=== PATIENT | female | born 1990 | race Caucasian/White ===

== ENCOUNTER 2020-06-08 12:40 | Emergency (ER) | payer OTHER, SELFPAY ==
[2020-06-08 12:41] VITALS: BP 145/98; PULSE 79; RESP 16; TEMP 36.9; O2SAT 98; BMI 48.0
--- NOTE | 2020-06-08 12:59 | US_ITS ---
PROCEDURE: US TRANSVAGINAL Referring Doctor: William Goldberg Patient Age:30Y CLINICAL INDICATION: bleeding in possible early preganancy Obesity but nongravid uterus but COMPARISON: No exams were available for comparison FINDINGS: There is a nongravid uterus. . A couple tiny 3 mm nabothian cysts along cervical canal noted . History obesity noted. Endometrial stripe measures 5 mm Ovaries appear normal. Normal color Doppler survey flow flow to both ovaries. Right ovary. Normal size 3.1 x 1.9 x 2.8 cm Follicular cyst but the largest measures 7 mm Left ovary normal size and unremarkable Left ovary measures 2.2 x 1.8 x 2 cm . No free fluid is seen in the pelvis IMPRESSION: No intrauterine gestation evident . Today's ultrasound suggestNongravid uterus, but requires correlation with beta HCG . Normal endometrial stripe 5 mm. . Ovaries appear normal bilaterally with normal color Doppler flow. Small 7 mm normal-appearing follicular cyst right ovary . No fluid cul-de-sac Dictated by: Alexandru Allen MD 06/08/2020 17:54 Alexandru Allen MD in [place] 06/08/2020 17:54
[2020-06-08 13:06] LABS: Microscopic, Urine URINE MICROSCOPIC (MICROSCOPIC)
[2020-06-08 13:08] LABS: Appearance,Urine SL CLOUDY (Clear); Bilirubin,Urine Negative (Negative); Blood, Urine 3+ (Negative); Color,Urine DK YELLOW (Yellow); Glucose,Urine (UA) Negative (Negative); Ketones,Urine Negative (Negative); Leukocyte Esterase,Urine Negative (Negative); Nitrate,Urine Negative (Negative); PH,Urine 7.5 (5.0-8.5); Protein,Urine Negative (Negative)
[2020-06-08 13:37] LABS: Basophils % 0.5 % (0.1-2.0); Eosinophils # 0.4 K/mm3 (0.0-0.4); Hematocrit 43.7 % (37.0-47.0); Hemoglobin 14.4 g/dL (12.2-16.2); Lymphocytes # 2.3 K/mm3 (0.7-4.5); Lymphocytes % 34.7 % (10-50); Mean Corpuscular Hemoglobin 29.4 pg (27.0-31.2); Mean Corpuscular Volume 89.1 fl (81-99); Mean Platelet Volume 7.2 fl (7.4-10.4); Monocytes # 0.3 K/mm3 (0.1-1.0); Monocytes % 5.2 % (1.7-9.3); Neutrophils # 3.5 K/mm3 (1.8-7.8); Neutrophils % 53.5 % (37.0-80.0); Platelet Count 329 K/mm3 (142-424); Red Cell Distribution Width 13.2 % (11.5-17.5); White Blood Count 6.5 K/mm3 (4.8-10.8)
--- NOTE | 2020-06-08 13:44 | HMH.EDGENADL ---
ED Disposition Clinical Impression: Disposition: Home, Self-Care Condition on Discharge: Good Referrals: PCP,No [Primary Care Provider] - Raheel Anne MD [Staff Physician] - - Critical Care Critical Care Time: No Attestation: On 06/08/20, the high probability of a clinically significant, sudden or life threatening deterioration of the following system(s) required my full and direct attention, intervention and personal management. The time I documented below is in addition to time spent performing reported procedures but includes the following listed in this critical care notation. Medical Decision Making - Medical Records Medical records reviewed: Yes: I reviewed the patient's medical records. - Franco Inquiry Pt receiving controlled substance: No Vital Signs: 06/08/20 12:41 Temperature 98.5 F Temperature Source Oral Pulse Rate [Right] 79 Respiratory Rate 16 Blood Pressure [Right Arm] 145/98 H Blood Pressure Mean [Right Arm] 113 Blood Pressure Source [Right Arm] Automatic Cuff Blood Pressure Position [Right Arm] Sitting 02 Sat by Pulse Oximetry 98 Oxygen Delivery Method Room Air - Lab Data Lab Results 06/08/20 12:57: Urine Color Dk yellow, Urine Appearance Sl cloudy, Urine pH 7.5, Ur Specific [place] 1.020, Urine Protein Negative, Urine Glucose (UA) Negative, Urine Ketones Negative, Urine Blood 3+, Urine Nitrate Negative, Urine Bilirubin Negative, Urine Urobilinogen 1.0, Ur Leukocyte Esterase Negative, Urine RBC 10-20, Urine WBC Occasional, Ur Squamous Epith Cells Occasional, Urine Bacteria Trace 06/08/20 13:20: WBC 6.5, RBC 4.90, Hgb 14.4, Hct 43.7, MCV 89.1, MCH 29.4, MCHC 33.0, RDW 13.2, Plt Count 329, MPV 7.2 L, Neut % (Auto) 53.5, Lymph % (Auto) 34.7, [place] % (Auto) 5.2, Eos % (Auto) 6.0, Baso % (Auto) 0.5, Neut # (Auto) 3.5, Lymph # (Auto) 2.3, [place] # (Auto) 0.3, Eos # (Auto) 0.4, Baso # (Auto) 0.0 06/08/20 13:20: Sodium 138, Potassium 4.2, Chloride 103, Carbon Dioxide 30, Anion Gap 9.2, BUN 13, Creatinine 0.60, Estimated Creat Clear 119, Estimated GFR 118, Est GFR ( Amer) 143, Glucose 104 H, Calcium 9.0, Total Bilirubin 0.5, AST 71 H, ALT 94 H, Alkaline Phosphatase 80, Total Protein 8.0, Albumin 4.0, Globulin 4.0 H, Albumin/Globulin Ratio 1.0 L 06/08/20 13:20: Blood Type O Positive, Antibody Screen Negative 06/08/20 13:20: HCG, Quant 4 Result diagrams: 06/08/20 13:20 06/08/20 13:20 Orders (Tests/Meds): ORDERS Category Date Time Status ABO/RH Type Stat BBK 06/08/20 14:53 Ordered US transvaginal Stat Exams 06/08/20 12:59 Taken PT/PTT Stat Lab 06/08/20 13:20 Received Medical Decision Narrative: 30 y/o female presenting w vaginal bleeding and abd cramping. HCG is 4 today and transvaginal US is neg for uterine w thin endometrial stripe c/w . cbc/cmp are non actionable. no infection on UA. rh pos- rhogam not indicated. benign abd exam. will f/u w OB General Adult HPI - General Chief complaint: OB/Uterine Contractions Stated complaint: & spotting Time Seen by Provider: 06/08/20 13:00 Mode of Arrival: Ambulatory Limitations: No Limitations Description of Symptoms (Recalled from ER Triage Doc. by RN): PT advises she had 2 positive tests last week and then last night she started spotting and then today she had bright red blood - History of Present Illness HPI narrative: This is a 30-year-old female A0 we discovered by home test presenting with 2-day history of intermittent vaginal spotting. Patient also relates mild lower abdominal cramps today and one episode of dysuria yesterday. This has never happened before. No fever, chills, nausea, vomiting, cough, shortness of breath, diarrhea, constipation. - Related Data Home Medications Medication Instructions Recorded Confirmed No Known Home Medications 06/08/20 06/08/20 Allergies Allergy/AdvReac Type Severity Reaction Status Date /
[2020-06-08 14:11] LABS: Bacteria,Urine Trace /lpf; Squamous Epithelial Cell,Urine Occasional #/hpf (0-5); WBC,Urine Occasional #/hpf (0-3)
[2020-06-08 14:26] LABS: Alanine Aminotransferase 94 U/L (12-78); Alkaline Phosphatase 80 U/L (38-126); Anion Gap 9.2 mEq/L (5-15); Aspartate Amino Transferase 71 U/L (14-36); Bilirubin,Total 0.5 mg/dl (0.2-1.3); Blood Urea Nitrogen 13 mg/dl (7-17); Carbon Dioxide 30 mmol/L (22.0-30.0); Chloride 103 mmol/L (98-107); Creatinine Clearance Estimated 119 mL/min (50-200); Estimated Glomerular Filt Rate 118 ml/min (>60); GFR (African American) 143 ML/MIN (>60); Glucose 104 mg/dl (74-100); Potassium 4.2 mmoL/L (3.5-5.1); Sodium 138 mmol/L (136-145)
[2020-06-08 14:43] LABS: HCG,Quantitative 4 mIU/ml (0-5.42)
[2020-06-08 15:30] LABS: Activated Partial Thrombo Time 27.9 seconds (23.6-34.0); INR 0.98 (0.9-1.1); Prothrombin Time 10.9 seconds (9.4-11.8)
[2020-06-08 15:33] VITALS: BP 130/74; PULSE 78; RESP 16; TEMP 36.6; O2SAT 98
== END 2020-06-08 15:34 | disposition home or self-care (01) ==
PROVIDERS: Emergency Provider Physician Assistant
DX: O03.9 Complete or unspecified spontaneous abortion without complication (principal)
CPT/HCPCS: 76830; 80053; 81001; 84702; 85025; 85610; 85730; 86850; 99283

== ENCOUNTER → 2020-10-01 16:04 | Outpatient (CLI) | payer OTHER, SELFPAY ==
[2020-10-01 16:41] LABS: Basophils # 0.1 K/mm3 (0-0.2); Basophils % 0.5 % (0.1-2.0); Eosinophils # 0.3 K/mm3 (0.0-0.4); Eosinophils % 2.6 % (0.1-12.0); Hematocrit 43.2 % (37.0-47.0); Hemoglobin 14.4 g/dL (12.2-16.2); Lymphocytes # 3.1 K/mm3 (0.7-4.5); Lymphocytes % 31.7 % (10-50); Mean Corpuscular HGB Conc 33.3 g/dL (31.8-35.4); Mean Corpuscular Hemoglobin 29.2 pg (27.0-31.2); Mean Corpuscular Volume 87.7 fl (81-99); Mean Platelet Volume 7.5 fl (7.4-10.4); Monocytes # 0.6 K/mm3 (0.1-1.0); Monocytes % 5.9 % (1.7-9.3); Neutrophils # 5.8 K/mm3 (1.8-7.8); Neutrophils % 59.3 % (37.0-80.0); Platelet Count 309 K/mm3 (142-424); Red Blood Count 4.93 M/mm3 (4.20-5.40); Red Cell Distribution Width 13.1 % (11.5-17.5); White Blood Count 9.9 K/mm3 (4.8-10.8)
[2020-10-01 16:48] LABS: Hemoglobin A1C 5.3 % (4.0-6.0)
[2020-10-01 17:18] LABS: Chloride 103 mmol/L (98-107); Potassium 4.4 mmoL/L (3.5-5.1); Sodium 136 mmol/L (136-145)
[2020-10-01 17:20] LABS: Alanine Aminotransferase 134 U/L (12-78); Aspartate Amino Transferase 79 U/L (14-36); Blood Urea Nitrogen 10 mg/dl (7-17); Estimated Glomerular Filt Rate 118 ml/min (>60); GFR (African American) 143 ML/MIN (>60); HCG Qualitative, Serum Positive (Negative)
[2020-10-01 17:21] LABS: Albumin/Globulin Ratio 1.2 (1.1-1.8); Alkaline Phosphatase 73 U/L (38-126); Anion Gap 9.4 mEq/L (5-15); Bilirubin,Total 0.4 mg/dl (0.2-1.3); Calcium 9.4 mg/dl (8.4-10.2); Carbon Dioxide 28 mmol/L (22.0-30.0); Chol/HDL Ratio 3.2 (1-3.5); Cholesterol 162 mg/dl (140-200); Globulin 3.3 g/dL (1.3-3.2); Glucose 85 mg/dl (74-100); HDL Cholesterol 50 mg/dl (40-60); Total Protein,Serum 7.3 g/dl (6.3-8.2); Triglycerides 122 mg/dl (30-150); VLDL Cholesterol 24 mg/dL (0-40)
[2020-10-01 17:52] LABS: Thyroid Stimulating Hormone 2.87 uIU/mL (0.465-4.68)
== END ==
PROVIDERS: Visit Provider Family Medicine
DX: E11.9 Type 2 diabetes mellitus without complications (principal); E66.9 Obesity, unspecified; R63.5 Abnormal weight gain; Z83.3 Family history of diabetes mellitus; Z83.49 Family history of other endocrine, nutritional and metabolic diseases; Z87.59 Personal history of other complications of pregnancy, childbirth and the puerperium; F32.9 Major depressive disorder, single episode, unspecified
CPT/HCPCS: 36415; 80053; 80061; 83036; 84443; 84703; 85025

== ENCOUNTER 2022-01-10 10:56 | Emergency (ER) | payer OTHER, SELFPAY ==
[2022-01-10 11:20] VITALS: BP 149/98; PULSE 70; RESP 19; TEMP 36.8; O2SAT 98; BMI 54.5
--- NOTE | 2022-01-10 11:40 | HMH.EDUTC ---
[place] Disposition Clinical Impression: Upper respiratory infection, viral, Exposure to COVID-19 virus Disposition: Home, Self-Care Condition on Discharge: Good Instructions: DI for Viral Upper Respiratory Infection -- Adult Additional Instructions: covid swab was sent to lab, call tomorrow for results. self isolate until test results are known to be negative No sign of a bacterial infection. Likely viral. Viruses can take 7-14 days to run their course. Nasal saline and bulb syringe or nose [place] to remove nasal drainage to help with nasal congestion. Hard to eat, drink, sleep with nasal congestion so important to keep this cleaned out. Monitor temp. Tylenol or Motrin as needed for pain or fever Encourage fluids, water, Gatorade, Powerade, Pedialyte if /toddler/child Warm salt water gargles Warm fluids Sore throat lozenges Sleep elevated Humidifier/vaporizer Follow-up immediately for new or worsening symptoms or no noticeable improvement over the next 48-72 hours Referrals: Lit De Leon MD [Primary Care Provider] - Forms: Work/School Release Time of Disposition: 11:42 Medical Decision Making - Franco Inquiry Pt receiving controlled substance: No Vital Signs: 01/10/22 11:20 Temperature 98.2 F Temperature Source Oral Pulse Rate [Right Brachial] 70 Respiratory Rate 19 Blood Pressure [Right Arm] 149/98 H Blood Pressure Mean [Right Arm] 115 Blood Pressure Source [Right Arm] Automatic Cuff Blood Pressure Position [Right Arm] Sitting 02 Sat by Pulse Oximetry 98 Oxygen Delivery Method Room Air Orders (Tests/Meds): ORDERS Category Date Time Status Covid-19 Nasal PCR ([facility]) Routine Lab 01/10/22 11:16 Received [place] HPI - General Chief complaint: Urgent Treatment Center Stated complaint: Migrane, cough, sore throat, SOA, bodyache Time Seen by Provider: 01/10/22 11:40 Mode of Arrival: Ambulatory Source of Information: Patient Limitations: No Limitations Description of Symptoms (Recalled from Triage Doc. by RN): PATIENT C/O COUGH, RUNNY NOSE, CONGESTION, AND BODY ACHES THAT STARTED THIS MORNING HEENT Symptoms (Recalled from RN notes): Yes Resp Symptoms (Recalled from RN notes): No Skin Symptoms (Recalled from RN notes): No MS Symptoms (Recalled from RN notes): No Functional Status (Recalled from RN notes): WNL - History of Present Illness Provider Complaint: 31 yr old female presents for cough,chills,body aches and tillman that started this am. has been exposed to covid - Related Data Home Medications Medication Instructions Recorded Confirmed buprenorphine HCl 8 mg sublingual 8 mg SUBLINGUAL DAILY 09/23/20 09/23/20 tablet hydroxyzine pamoate 25 mg/5 mL mg PO 09/23/20 oral suspension venlafaxine 75 mg tablet,extended 75 mg PO DAILY 09/23/20 09/23/20 release 24 hr Allergies Allergy/AdvReac Type Severity Reaction Status Date / Time No Known Allergies Allergy Verified 09/23/20 10:51 - Worker's Comp Is this a Worker's Comp case?: No [facility] History - Hepatitis A Screen Attestation statement:: This patient has been screened for Hepatitis A risk factors. I have reviewed the patient's past medical history: Yes - Social History Smoking Status: Current every day smoker Alcohol Intake: never Substance Use Type: heroin, methamphetamine, marijuana, crack/cocaine Occupational Status: employed ROS Obtained: Yes Systems reviewed as appropriate & no additional complaints - Constitutional Constitutional: Reports system reviewed and no additional complaints, except as docu, Reports fever(s), Denies poor appetite - Eyes Eyes: Reports system reviewed and no additional complaints, except as docu, Denies blurry vision - ENT Ears, Nose, Mouth, and Throat: Reports system reviewed and no additional complaints, except as docu, Reports nasal congestion, Reports nasal discharge, Reports sore throat - Cardiovascular Cardiovascular: Reports system reviewed and no additional compla
[2022-01-10 11:44] VITALS: BP 149/98; PULSE 70; RESP 19; TEMP 36.8; O2SAT 98
== END 2022-01-10 11:45 | disposition home or self-care (01) ==
PROVIDERS: Emergency Provider Nurse Practitioner Family; PCP Family Medicine
DX: J06.9 Acute upper respiratory infection, unspecified (principal); R51.9 Headache, unspecified; Z20.822 Contact with and (suspected) exposure to COVID-19; R06.02 Shortness of breath; R05.9 Cough, unspecified
CPT/HCPCS: 99212; C9803; G0463; U0003; U0005

== ENCOUNTER → 2022-03-10 16:20 | Outpatient (CLI) | payer BC, OTHER, SELFPAY ==
[2022-03-10 20:41] LABS: Basophils # 0.1 K/mm3 (0-0.2); Basophils % 0.9 % (0.1-2.0); Eosinophils # 0.2 K/mm3 (0.0-0.4); Eosinophils % 2.2 % (0.1-12.0); Hemoglobin 14.7 g/dL (12.2-16.2); Lymphocytes # 2.4 K/mm3 (0.7-4.5); Lymphocytes % 26.7 % (10-50); Mean Corpuscular HGB Conc 31.9 g/dL (31.8-35.4); Mean Corpuscular Hemoglobin 29.9 pg (27.0-31.2); Mean Corpuscular Volume 93.5 fl (81-99); Monocytes # 0.5 K/mm3 (0.1-1.0); Monocytes % 5.4 % (1.7-9.3); Neutrophils # 5.9 K/mm3 (1.8-7.8); Neutrophils % 64.7 % (37.0-80.0); Platelet Count 341 K/mm3 (142-424); Red Blood Count 4.91 M/mm3 (4.20-5.40); Red Cell Distribution Width 13.2 % (11.5-17.5); White Blood Count 9.1 K/mm3 (4.8-10.8)
[2022-03-10 20:44] LABS: Alanine Aminotransferase 86 U/L (12-78); Albumin Level 3.9 g/dl (3.5-5.0); Albumin/Globulin Ratio 1.1 (1.1-1.8); Alkaline Phosphatase 112 U/L (38-126); Anion Gap 15.6 mEq/L (5-15); Aspartate Amino Transferase 65 U/L (14-36); Bilirubin,Total 0.4 mg/dl (0.2-1.3); Blood Urea Nitrogen 15 mg/dl (7-17); Calcium 8.9 mg/dl (8.4-10.2); Carbon Dioxide 29 mmol/L (22.0-30.0); Chloride 100 mmol/L (98-107); Estimated Glomerular Filt Rate 98 ml/min (>60); GFR (African American) 119 ML/MIN (>60); Globulin 3.5 g/dL (1.3-3.2); Glucose 88 mg/dl (74-100); Potassium 4.6 mmoL/L (3.5-5.1); Sodium 140 mmol/L (136-145); Total Protein,Serum 7.4 g/dl (6.3-8.2)
[2022-03-12 10:32] LABS: HIV Screen 4th Generation wRfx Non Reactive (Non Reactive); Hep A Ab, Total Positive (Negative); Hep B Core Ab, Total Positive (Negative); Hep B Surface Ab, Qual Reactive (.); Hepatitis B Surface Antigen Negative (Negative); Hepatitis C Antibody >11.0 s/co ratio (0.0-0.9)
[2022-03-13 21:30] LABS: HCV Genotype Charge YES; Hepatitis C Genotype 2b (.)
[2022-03-14 00:17] LABS: ALT (SGPT) P5P 83 IU/L (0-40); Alpha 2-Macroglobulins, Qn 199 mg/dL (110-276); Apolipoprotein A-1 161 mg/dL (116-209); Bilirubin, Total 0.2 mg/dL (0.0-1.2); Fibrosis Score 0.04 (0.00-0.21); GGT 24 IU/L (0-60); Haptoglobin 130 mg/dL (33-278); Necroinflammat Activity Grade A1-A2 (.); Necroinflammat Activity Score 0.39 (0.00-0.17)
== END ==
PROVIDERS: PCP Nurse Practitioner Family; Visit Provider Nurse Practitioner Family
DX: R53.83 Other fatigue (principal); B34.8 Other viral infections of unspecified site; Z11.4 Encounter for screening for human immunodeficiency virus [HIV]; Z11.59 Encounter for screening for other viral diseases
CPT/HCPCS: 80053; 81596; 85025; 86703; 86704; 86706; 86708; 87340; 87380; 87522; 87902; G0432

== ENCOUNTER → 2023-03-18 16:07 | Outpatient (CLI) | payer OTHER, SELFPAY | PROVIDERS: PCP Family Medicine; Visit Provider Nurse Practitioner Family | DX: B18.2 Chronic viral hepatitis C (principal) | CPT/HCPCS: 36415 ==

== ENCOUNTER → 2023-03-25 15:54 | Outpatient (CLI) | payer OTHER, SELFPAY ==
[2023-03-25 16:23] LABS: Basophils # 0.1 K/mm3 (0-0.2); Basophils % 0.6 % (0.1-2.0); Eosinophils # 0.4 K/mm3 (0.0-0.4); Eosinophils % 3.4 % (0.1-12.0); Hemoglobin 14.7 g/dL (12.2-16.2); Lymphocytes # 3.6 K/mm3 (0.7-4.5); Lymphocytes % 34.1 % (10-50); Mean Corpuscular HGB Conc 34.9 g/dL (31.8-35.4); Mean Corpuscular Hemoglobin 31.7 pg (27.0-31.2); Mean Corpuscular Volume 90.9 fl (81-99); Mean Platelet Volume 8.3 fl (7.4-10.4); Monocytes # 0.5 K/mm3 (0.1-1.0); Monocytes % 4.4 % (1.7-9.3); Neutrophils % 57.5 % (37.0-80.0); Platelet Count 226 K/mm3 (142-424); Red Blood Count 4.63 M/mm3 (4.20-5.40); Red Cell Distribution Width 12.2 % (11.5-17.5); White Blood Count 10.5 K/mm3 (4.8-10.8)
[2023-03-25 16:32] LABS: INR 0.99 (0.9-1.1); Prothrombin Time 10.7 seconds (10.1-12.5)
[2023-03-25 17:04] LABS: Alanine Aminotransferase 80 U/L (12-78); Albumin Level 3.8 g/dl (3.5-5.0); Albumin/Globulin Ratio 1.2 (1.1-1.8); Alkaline Phosphatase 80 U/L (38-126); Anion Gap 12.4 mEq/L (5-15); Aspartate Amino Transferase 63 U/L (14-36); Bilirubin,Total 0.2 mg/dl (0.2-1.3); Blood Urea Nitrogen 13 mg/dl (7-17); Calcium 8.7 mg/dl (8.4-10.2); Carbon Dioxide 32 mmol/L (22.0-30.0); Chloride 101 mmol/L (98-107); Estimated Glomerular Filt Rate 97 ml/min (>60); GFR (African American) 117 ML/MIN (>60); Globulin 3.3 g/dL (1.3-3.2); Glucose 75 mg/dl (74-100); Potassium 4.4 mmoL/L (3.5-5.1); Sodium 141 mmol/L (136-145); Total Protein,Serum 7.1 g/dl (6.3-8.2)
[2023-03-27 08:22] LABS: HIV Screen 4th Generation wRfx Non Reactive (Non Reactive)
[2023-03-27 09:47] LABS: Hep A Ab, Total Positive (Negative); Hep B Core Ab, Total Positive (Negative); Hep Be Ag Positive (Negative)
[2023-03-28 21:32] LABS: HCV Genotype Charge YES; Hepatitis C Genotype 2b (.)
[2023-04-01 10:22] LABS: Fibrosis Score 0.04; Fibrosis Stage F0-NO FIBROSIS; NASH Grade N0-NO NASH; Steatosis Grade S0-NO STEATOSIS; Steatosis Score 0.33
[2023-04-01 10:23] LABS: Alpha 2-Macroglobulins, Qn 197; Apolipoprotein A-1 130; Haptoglobin 108
[2023-04-01 10:24] LABS: ALT (SGPT) P5P 69; AST (SGOT) P5P 48; Bilirubin, Total 0.1; GGT 20
[2023-04-01 10:25] LABS: Cholesterol, Total 147; Glucose 75; Triglycerides 122
== END ==
PROVIDERS: PCP Family Medicine; Visit Provider Nurse Practitioner Family
DX: B18.2 Chronic viral hepatitis C (principal)
CPT/HCPCS: 36415; 80053; 85025; 85610; 86703; 86704; 86708; 87350; 87522; 87902; G0432

== ENCOUNTER 2024-01-06 15:55 | Outpatient (CLI) | payer OTHER, SELFPAY ==
[2024-01-06 18:08] LABS: Coronavirus 19, PCR Not Detected (NotDetected); Influenza A, PCR Not Detected (NotDetected); Influenza B, PCR Not Detected (NotDetected)
== END 2024-01-06 23:59 | disposition home or self-care (01) ==
LOC: LAB.DROPOF 01-08 19:26
PROVIDERS: PCP Nurse Practitioner; Visit Provider Nurse Practitioner
DX: J06.9 Acute upper respiratory infection, unspecified (principal); Z72.0 Tobacco use
CPT/HCPCS: 87636

== ENCOUNTER 2025-03-27 10:40 | Outpatient (CLI) | payer OTHER, SELFPAY ==
--- OUTSIDE RECORDS SUMMARY | 2025-03-22 08:00 | XMS_ITS | Encounter Summary ---
Author Organization [place] [address] Care Team Providers Care Sheet Sorter Name Role Phone No Pcp, Per Patient Primary Care Provider Nicolás velasquez Reason for Referral * Ultrasound (Routine) - Pending Review Specialty Diagnoses / Procedures Referred By Diana t Referred To Contact Diagnoses Early stage of Amenorrhea Procedures PN US OB < 14 WEEKS SINGLE OR FIRST GESTATION Dashawn Mcgrath MD [address] [place] [address] [place] [id number] Phone: tel: fax: Referral ID Status Reason Start Date Expiration Date V isits Requested Visits Authorized [id number] Pending Review 03/22/2025 03/22/2026 1 1 Reason for Visit * Reason Comments Gynecologic Exam pt states she she tillman sn't had a period end of December was very light has a history of ectopic pregnancies, states she just got out of rehab Encounter Details Date Type Department Care Team (Late Contact Info) Description 03/22/2025 9:00 AM EDT Office Visit [facility] [address] [place] [phone] Dashawn Mcgrath MD [address] [place] [address] [address] [place] [address] [id number] Early stage of (Primary Dx); History of ectopic ; Amenorrhea Social History Tobacco Use Types Packs/Day Years Used Date Smoking Tobacco: Never Smokeless Tobacco: Never Tobacco Cessation:Counseling Given: No Alcohol Use Standard Drinks/Week Comments No 0 (1 standard drink = 0.6 oz pur e alcohol) Sexually Active Control Partners Comments Yes Male Comments No Sex and Gender Information Value Date Recorded Sex Assigned at Not on file Legal Sex Female 8:55 PM EDT Gender Identity Not on file Sexual Orientation Not on file documented as of this encounter Last Filed Vital Signs Vital Sign Reading Time Taken Comments Blood Pressure 118/74 03/22/2025 9:31 AM EDT Pulse - - Temperature - - Respiratory Rate - - Oxygen Saturation - - Inhaled Oxygen Concentration - - Weight 153.1 kg (337 lb 9.6 oz) 03/22/2025 9:31 AM EDT Height 167.6 cm (5' 6 ) 03/22/2025 9:31 AM EDT Body Mass Index 54.49 03/22/2025 9:31 AM EDT documented in this encounter Progress Notes * Kennedy Menendez MA - 03/22/2025 9:00 AM EDT Results for orders placed or performed in visit on 03/22/25 SEP URINALYSIS POC Result Value Ref Range UA Color POC Yellow Color UA Appear POC Clear Clear UA Gluc POC Negative Negative mg/dL UA Bili POC Negative Negative UA Ketones POC Negative Negative mg/dL UA SG POC 1.020 1.001 - 1.035 no units UA Blood POC Negative Negative UA pH POC 5.5 5.0 - 8.0 pH UA Protein POC Negative Negative mg/dL UA Urobilinogen POC 0.2 0.2, 1.0 UA Nitrite POC Negative Negative UA Leuk Est POC Negative Negative POCT URINE TELCOR Result Value Ref Range Preg Test, Ur Positive * Dashawn Mcgrath MD - 03/22/2025 9:00 AM EDT [facility] [employer] [employer] Visit Chief Complaint Patient presents with ??? Gynecologic Exam pt states she she hasn't had a period end of December was very light has a history of ectopic pregnancies, states she just got out of rehab Pt is a 35 y.o. No obstetric history on file. 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 History of Present Illness The patient is a 35-year-old female who presents for a problem visit. She is early and hasa history of ectopic pregnancies. She has a history of 3 early miscarriages, characterized by initial positive tests that subsequently turned negative. Additionally, she experienced an ectopic , which was managed with methotrexate injections. Following this, she successfully carried a to term, resultingin the of her now 3-year-old child. During her previous , she experienced left-sided pain and constant pressure, symptoms that are notably absent in her current . She reports no spotting but does experience nausea and persistent fatigue. Her obstetric history includes 2 sections. She is uncertain about her blood type, recalling it as either O positive or negative. Obstetrical History discussed: - History of ectopic pregnancies - History of 3 early miscarriages - 2 sections PAST SURGICAL HISTORY: - 2 sections Contraception if applicable: Past Medical History[1] OB History No obstetric history on file. Patient Active Problem List Diagnosis Date Noted ??? Severe episode of recurrent major depressive disorder, without psychotic features ([facility]) 09/24/2016 ??? Anxiety and depression 01/28/2016 on prozac ??? Obesity, morbid, BMI 50 or higher ([facility]) 01/28/2016 Surgical History[1] Current Outpatient Medications Medication Instructions ??? busPIRone (BUSPAR) 10 mg, Oral, 2 TIMES DAILY ??? busPIRone (BUSPAR) 15 mg, 3 TIMES DAILY ??? cyanocobalamin 1,000 mcg, DAILY ??? DULoxetine (CYMBALTA) 30 mg Oral Capsule, Delayed Release(E.C.) TAKE 1 CAPSULE ONCE DAILY FOR 7DAYS, THEN INCREASE TO 2 CAPSULES ONCE DAILY ??? DULoxetine (CYMBALTA) 60 mg, DAILY ??? ergocalciferol (VITAMIN D) 50,000 Units, Oral, WEEKLY ??? fUROsemide (LASIX) 20 mg, Oral, DAILY ??? hydroCHLOROthiazide 25 mg, DAILY ??? hydrOXYzine (ATARAX) 25 mg, ONCE ??? lisinopriL (PRINIVIL;ZESTRIL) 20 mg, DAILY Physical Exam: BP 118/74 (BP Location: Left arm, Patient Position: Sitting) Ht 5' 6 (1.676 m) Wt (!) 337 lb 9.6 oz (153.1 kg) No BMI 54.49 kg/m?? Body mass index is 54.49 kg/m??. 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 Early : - The patient has a history of ectopic pregnancies and miscarriages, with concerns about recurrence. - A serum hormone level test will be conducted to determine gestational age. An ultrasound will be performed once the hormone level reaches 2000. If the hormone level is below 2000, it will be rechecked. If the hormone level is above 2000, an ultrasound will be scheduled. - The patient will be informed of the results via Breathometer. 2. Medication management: - The patient is currently on lisinopril for blood pressure and hydroxyzine for mood stabilization but is out of all medications will f/u with primary care re: meds - The patient is advised to continue these medications as previously prescribed. She will need to contact her family doctor for any further prescriptions as she is no longer seeing the doctor who initially prescribed these medications. Follow-up: The patient will be informed of the serum hormone level results via Breathometer. Diagnoses and all orders for this visit: Early stage of - SEP URINALYSIS POC - PN US OB < 14 WEEKS SINGLE OR FIRST GESTATION; Future - TYPE AND SCREEN; Future - ABORH; Future - ANTIBODY SCREEN IGG; Future - HUMAN CHORIONIC GONADOTROPIN QUANTITATIVE; Future History of ectopic Amenorrhea - POCT URINE TELCOR - PN US OB < 14 WEEKS SINGLE OR FIRST GESTATION; Future - TYPE AND SCREEN; Future - ABORH; Future - ANTIBODY SCREEN IGG; Future - HUMAN CHORIONIC GONADOTROPIN QUANTITATIVE; Future Dashawn Mcgrath MD 03/22/2025 10:09 AM The provider educated the patient (or legal food products sales representative) on the use of the ambient listening artificial intelligence tool, [employer]. They were informed that this AI tool processes the conversation to generate a clinical note with the expected benefit of improved accuracy while achieving an improved encounter experience for the patient and provider.?The provider explained that the medical information captured by the AI tool including, but not limited to, diagnoses and treatment plan would be protected in accordance with applicable privacy laws and that all diagnoses and treatment decisions would be made by the provider. The provider explained that the note generated will be reviewed bythe provider for accuracy to minimize potential errors.? The patient was given an opportunity to ask questions and opt out of proceeding with the use of the AI tool. After being informed of such information, the patient (or legal food products sales representative), and each individual in attendance with the patient, verbally consented to the use of the AI tool. [1] Past Medical History: Diagnosis Date ??? Depression [1] Past Surgical History: Procedure Laterality Date ??? SECTION documented in this encounter Plan of Treatment Upcoming Encounters Date Type Department Care Team (Late st Contact Info) Description 04/05/2025 3:30 PM EST Clinical Support [address] [phone] 04/05/2025 4:00 PM EST INITIAL VISIT [address] [phone] Scheduled Orders Name Type Priority Associated Diagnoses Orde r Schedule PN US OB < 14 WEEKS SINGLE OR FIRST GESTATION Imaging Routine Early stage of Amenorrhea 1 Occurrences starting 03/22/2025 until 03/22/2026 ABORH Blood Bank Routine Early stage of Amenorrhea 1 Occurrences starting 03/22/2025 until 03/22/2026 ANTIBODY SCREEN IGG Blood Bank Routine Early stage of Amenorrhea 1 Occurrences starting 03/22/2025 until 03/22/2026 documented as of this encounter Goals Goal Patient Goal Type Associated Problems Recent Progress Patient-Stated? Author Maintain a healthy diet, exercise regularly and maintain an ideal body weight General No Catie Soler RMA documented as of this encounter Procedures Procedure Name Priority Date/Time Associated Diagnosis Comments POCT URINE TELCOR Routine 03/22/2025 9:38 AM EDT Amenorrhea SEP URINALYSIS POC Routine 03/22/2025 9: 23 AM EDT Early stage of documented in this encounter Results * (ABNORMAL) HUMAN CHORIONIC GONADOTROPIN QUANTITATIVE (03/22/2025 10:16 AM EDT) [facility] Hcg Quant 76,184(H) <5 mIU/mL 03/22/2025 2:25 PM EDT PREFERRED [facility] Blood VENOUS BLOOD / Unknown Venipuncture / Unknown 03/22/2025 10:16 AM EDT 03/22/2025 10:16 AM EDT Narrative [facility]REFERRED [facility] - 03/22/2025 2:25 PM EDT Female (non-): 0-4.9 mIU/mL Female (postmenopausal): 0-8.1 mIU/mL Indeterminate values for (e.g., 5-25 mIU/mL) may be confirmed with a repeat test in 48-72 hours. Values in should double every 2-3 days for the first six weeks. Ingestion of espinoza doses of biotin (>5 mg/day) taken within 8 hours of drawing blood sample can interfere with this immunoassay test. Dashawn Mcgrath MD CHEMISTRY ORDERABLES Final Res ult [facility] [address], [place] [address] * POCT URINE TELCOR (03/22/2025 9:38 AM EDT) [facility] Preg Test, Ur Positive 03/22/2025 9:41 AM EDT [facility] Urine STRUCTURE OF URINARY TRACT PROPER / Unknown 03/22/2025 9:38 AM EDT 03/22/2025 9:41 AM EDT Dashawn Mcgrath MD POINT OF CARE TEST ORDERABLES Final Result [facility] [address] [place] [address], [facility] [address] [place] [address] [phone] * SEP URINALYSIS POC (03/22/2025 9:23 AM EDT) UA Color POC Yellow Color 03/22/2025 9:26 AM EDT [facility] 302 UA Appear POC Clear Clear 03/22/2025 9:26 AM EDT [facility] 302 UA Gluc POC Negative Negative mg/dL 03/22/2025 9:26 AM EDT [facility] 302 UA Bili POC Negative Negative 03/22/2025 9:26 AM EDT [facility] 302 UA Ketones POC Negative Negative mg/dL 03/22/2025 9:26 AM EDT [facility] 302 UA SG POC 1.020 1.001 - 1.035 no units 03/22/2025 9:26 AM EDT [facility] 302 UA Blood POC Negative Negative 03/22/2025 9:26 AM EDT [facility] 302 UA pH POC 5.5 5.0 - 8.0 pH 03/22/2025 9:26 AM EDT [facility] 302 UA Protein POC Negative Negative mg/dL 03/22/2025 9:26 AM EDT [facility] 302 UA Urobilinogen POC 0.2 0.2, 1.0 03/22/2025 9:26 AM EDT [facility] 302 UA Nitrite POC Negative Negative 03/22/2025 9:26 AM EDT [facility] 302 UA Leuk Est POC Negative Negative 9:26 AM EDT [facility] 302 Urine STRUCTURE OF URINARY TRACT PROPER / Unknown 03/22/2025 9:23 AM EDT 03/22/2025 9:26 AM EDT us Dashawn Mcgrath MD POINT OF CARE TEST ORDERABLES Final Result [facility] [address] [place] [address], [address] [phone] [phone] documented in this encounter Visit Diagnoses Diagnosis Early stage of - Primary History of ectopic Personal history of other genital system and obstetric disorders Amenorrhea Absence of menstruation documented in this encounter Historical Medications * This list may reflect changes made after this encounter. hydroCHLOROthiazid e 25 mg Oral Tablet Take 25 mg by mouth daily. 02/21/2025 busPIRone (BUSPAR) 15 mg Oral Tablet Take 15 mg by mouth 3 times daily. 01/25/2025 DULoxetine (CYMBALTA) 60 mg Oral Capsule, Delayed Release(E.C.) Take 60 mg by mouth daily. 02/08/2025 hydrOXYzine (ATARAX) 25 mg Oral Tablet Take 25 mg by mouth once. 02/12/2025 lisinopriL (PRINIVIL;ZESTRIL) 20 mg Oral Tablet tablet Take 20 mg by mouth daily. 02/12/2025 added in this encounter Care Teams Sheet Sorter Relationship Specialty Start Date End Date No Pcp, Per Patient PCP - General 12/05/23 documented as of this encounter
--- OUTSIDE RECORDS SUMMARY | 2025-03-22 09:04 | XMS_ITS | Encounter Summary ---
Author Organization [place] [address] Care Team Providers Care Inventory Control Assistant Name Role Phone No Pcp, Per Patient Primary Care Provider Nicolás velasquez Encounter Details Date Type Department Care Team (Latest Contact Info) Description 03/22/2025 10:04 AM EDT - 03/22/2025 11:59 PM EDT Hospital Encounter [facility] [address] [place] [address] Early stage of ; Amenorrhea Discharge Disposition: Home or Self Care Social History Tobacco Use Types Packs/Day Years Used Date Smoking Tobacco: Never Smokeless Tobacco: Never Alcohol Use Standard Drinks/Week Comments No 0 (1 standard drink = 0.6 oz pur e alcohol) Sexually Active Control Partners Comments Yes Male Comments No Sex and Gender Information Value Date Recorded Sex Assigned at Not on file Legal Sex Female 8:55 PM EDT Gender Identity Not on file Sexual Orientation Not on file documented as of this encounter Medications at Time of Discharge busPIRone (BUSPAR) 10 mg Oral TabletIndications :ADELITA (generalized anxiety disorder) TAKE 1 TAB BY MOUTH 2 TIMES DAILY. 60 Tab 03/18/2017 busPIRone (BUSPAR) 15 mg Oral Tablet Take 15 mg by mouth 3 times daily. 01/25/2025 cyanocobalamin 1,000 mcg Oral Tablet Take 1,000 mcg by mouth daily. DULoxetine (CYMBALTA) 30 mg Oral Capsule, Delayed Release(E.C.)Kalyani cations:ADELITA (generalized anxiety disorder) TAKE 1 CAPSULE ONCE DAILY FOR 7 DAYS, THEN INCREASE TO 2 CAPSULES ONCE DAILY 60 Cap 03/18/2017 DULoxetine (CYMBALTA) 60 mg Oral Capsule, Delayed Release(E.C.) Take 60 mg by mouth daily. 02/08/2025 ergocalciferol (VITAMIN D) 50,000 unit Oral CapsuleIndication s:Vitamin D deficiency Take 1 Cap by mouth once a week. 4 Cap 2 09/24/2016 fUROsemide (LASIX) 20 mg Oral TabletIndications :Peripheral edema TAKE 1 TAB BY MOUTH DAILY. 30 Tab 2017 hydroCHLOROthiazi de 25 mg Oral Tablet Take 25 mg by mouth daily. 02/21/2025 hydrOXYzine (ATARAX) 25 mg Oral Tablet Take 25 mg by mouth once. 02/12/2025 lisinopriL (PRINIVIL;ZESTRIL ) 20 mg Oral Tablet tablet Take 20 mg by mouth daily. 02/12/2025 documented as of this encounter Discharge Disposition Disposition Code Departure Means Destination Home or Self Care documented in this encounter Plan of Treatment Upcoming Encounters Date Type Department Care Team (Late st Contact Info) Description 04/05/2025 3:30 PM EST Clinical Support [address] [address] 04/05/2025 4:00 PM EST INITIAL VISIT [address] [address] documented as of this encounter Goals Goal Patient Goal Type Associated Problems Recent Progress Patient-Stated? Author Maintain a healthy diet, exercise regularly and maintain an ideal body weight General No Catie Soler, BRANDY documented as of this encounter Procedures Procedure Name Priority Date/Time Associated Diagnosis Comments BB HISTORY CHECK Routine 03/22/2025 10:1 6 AM EDT Early stage of Amenorrhea ABORH Routine 03/22/2025 10:16 AM EDT Early stage of Amenorrhea ANTIBODY SCREEN IGG Routine 03/22/2025 1 0:16 AM EDT Early stage of Amenorrhea TYPE AND SCREEN Routine 03/22/2025 10:16 AM EDT Early stage of Amenorrhea HUMAN CHORIONIC GONADOTROPIN QUANTITATIVE Routine 03/22/2025 10:16 AM EDT Early stage of Amenorrhea documented in this encounter Results * BB HISTORY CHECK (03/22/2025 10:16 AM EDT) BB HISTORY CHECK (1) No Previous History 03/22/2025 1:02 PM EDT [facility] BLOOD BANK Blood VENOUS BLOOD / Unknown Venipuncture / Unknown 03/22/2025 10:16 AM EDT 03/22/2025 10:16 AM EDT Dashawn Mcgrath MD BLOOD BANK ORDERABLES Final Re sult Performing Organization Address [facility]/ZIP Co de Phone Number [facility] BLOOD [place] [phone] * ANTIBODY SCREEN IGG (03/22/2025 10:16 AM EDT) ABSC IgG Int Negative 03/22/2025 1:42 PM EDT [facility] BLOOD [facility] Blood VENOUS BLOOD / Unknown Venipuncture / Unknown 03/22/2025 10:16 AM EDT 03/22/2025 10:16 AM EDT Dashawn Mcgrath MD BLOOD BANK ORDERABLES Final Re sult Performing Organization Address [facility] Co de Phone Number [facility] [place] [address] * ABORH (03/22/2025 10:16 AM EDT) ABORH Int O POS 03/22/2025 1:3 6 PM EDT [facility] BLOOD BANK Blood VENOUS BLOOD / Unknown Venipuncture / Unknown 03/22/2025 10:16 AM EDT 03/22/2025 10:16 AM EDT Dashawn Mcgrath MD BLOOD BANK ORDERABLES Final Re sult Performing Organization Address City/[facility] Co de Phone Number [facility] BLOOD [address] [address] * (ABNORMAL) HUMAN CHORIONIC GONADOTROPIN QUANTITATIVE (03/22/2025 10:16 AM EDT) Hcg Quant 76,184(H) <5 mIU/mL 03/22/2025 2:25 PM EDT [facility] Blood VENOUS BLOOD / Unknown Venipuncture / Unknown 03/22/2025 10:16 AM EDT 03/22/2025 10:16 AM EDT Narrative [facility] - 03/22/2025 2:25 PM EDT Female (non-): 0-4.9 mIU/mL Female (postmenopausal): 0-8.1 mIU/mL Indeterminate values for (e.g., 5-25 mIU/mL) may be confirmed with a repeat test in 48-72 hours. Values in should double every 2-3 days for the first six weeks. Ingestion of espinoza doses of biotin (>5 mg/day) taken within 8 hours of drawing blood sample can interfere with this immunoassay test. us Dashawn Mcgrath MD CHEMISTRY ORDERABLES Final Res ult [facility] [address] [facility] , [address] [place] [phone] documented in this encounter Visit Diagnoses Diagnosis Early stage of Amenorrhea Absence of menstruation documented in this encounter Care Teams Inventory Control Assistant Relationship Specialty Start Date End Date No Pcp, Per Patient PCP - General 12/05/23 documented as of this encounter
[2025-03-27 15:19] LABS: Hematocrit 37.4 % (37.0-47.0); Hemoglobin 12.4 g/dL (12.2-16.2); Immature Granulocytes % 0.4 %; Mean Corpuscular HGB Conc 33.2 g/dL (31.8-35.4); Mean Corpuscular Hemoglobin 29.7 pg (27.0-31.2); Mean Corpuscular Volume 89.5 fl (81-99); Nucleated Red Blood Cells % 0 %; Platelet Count 301 K/mm3 (142-424); Red Blood Count 4.18 M/mm3 (4.20-5.40); Red Cell Distribution Width-SD 40.1 fL; White Blood Count 10.5 K/mm3 (4.8-10.8)
[2025-03-27 15:40] LABS: Alanine Aminotransferase 13 U/L (12-78); Albumin Level 3.4 g/dl (3.5-5.0); Albumin/Globulin Ratio 1.0 (1.1-1.8); Alkaline Phosphatase 62 U/L (38-126); Anion Gap 7.8 mEq/L (5-15); Aspartate Amino Transferase 18 U/L (14-36); Bilirubin,Total 0.3 mg/dl (0.2-1.3); Blood Urea Nitrogen 9 mg/dl (7-17); Calcium 8.4 mg/dl (8.4-10.2); Carbon Dioxide 25 mmol/L (22.0-30.0); Chloride 104 mmol/L (98-107); Creatinine,Serum 0.50 mg/dl (0.52-1.04); Estimated Glomerular Filt Rate 141 ml/min (>60); GFR (African American) 171 ML/MIN (>60); Globulin 3.5 g/dL (1.3-3.2); Glucose 90 mg/dl (74-100); Potassium 3.8 mmoL/L (3.5-5.1); Sodium 133 mmol/L (136-145); Total Protein,Serum 6.9 g/dl (6.3-8.2)
[2025-03-27 16:14] LABS: Thyroid Stimulating Hormone 1.45 uIU/mL (0.465-4.68)
[2025-03-27 16:33] LABS: Vitamin B12 408 pg/mL (239-931)
[2025-03-27 17:02] LABS: Hemoglobin A1C 5.1 % (4.0-6.0)
[2025-03-27 17:27] LABS: Folate 12.50 ng/mL
--- OUTSIDE RECORDS SUMMARY | 2025-03-29 13:44 | XMS_ITS | Clinical Summary ---
Author Organization [employer] ([place], [place], [place], [place], [place]) Address [address] [place] [address] Care Team Providers Care Tipple Supervisor Name Role Phone Lit De Leon MD Primary Care Provider [phone] Allergies No known active allergies Medications No known medications Social History Tobacco Use Types Packs/Day Years Used Date Smoking Tobacco: Every Day Cigarettes Smokeless Tobacco: Never Tobacco Cessation:Ready to Q uit: Not Asked; Counseling Given: Not Answered Alcohol Use Standard Drinks/Week Comments Never 0 (1 standard drink = 0.6 oz pur e alcohol) Food Insecurity Answer Date Recorded Food run out past 12 months Not on file 09/21 Food did not last past 12 months Not on file 10/09/2023 Employment Answer Date Recorded Help finding and keeping a job Not on file 0 10/09/2023 Family and Community Support Answer Jose e Recorded Help with Day to Day Activities Not on file 10/09/2023 Feeling Lonely or Isolated Not on file 10/08 Educational Attainment Answer Date Anupam rded Speak language other than [place] Island[place] at home Not on file 10/09/2023 Want help with school or training Not on file 10/09/2023 Substance Use Answer Date Recorded Used prescription meds for non-medical reasons N ot on file 10/09/2023 Used illegal drugs past 12 months Not on file 10/09/2023 Comments Unknown Sex and Gender Information Value Date Recorded Sex Assigned at Not on file Legal Sex Female 2:57 PM CDT Gender Identity Not on file Sexual Orientation Not on file Last Filed Vital Signs Vital Sign Reading Time Taken Comments Blood Pressure 160/100 10/09/2023 4:21 PM EDT Pulse 76 10/09/2023 4:21 PM EDT Temperature 36.1 C (97 F) 10/09/2023 4:21 PM EDT Respiratory Rate 16 10/09/2023 4:21 PM EDT Oxygen Saturation 98% 10/09/2023 4:21 PM EDT Inhaled Oxygen Concentration - - Weight 127 kg (280 lb) 10/09/2023 4:21 PM EDT Height 165.1 cm (5' 5 ) 10/09/2023 4:21 PM EDT Body Mass Index 46.59 10/09/2023 4:21 PM EDT Plan of Treatment Health Maintenance Due Date Last Done Comments Depression Screening (12+) 2003 HIV Screening 2006 Hepatitis C Screening 2009 DTAP/TDAP/TD VACCINES (1 - Tdap) 2010 Pneumococcal Vaccine: 0-49 Years (1 of 2 - PCV) 2009 Lipid Panel 2011 Pap Smear 2012 Tobacco Cessation Counseling and Screening (12+) 10/0810/09/2023 COVID-19 VACCINE (1 - season) 2025 Influenza Vaccine (#1) [address] [facility] Care Teams Tipple Supervisor Relationship Specialty Start Date End Date Lit De Leon MD [address] [place] [address] PCP - General Family Medicine 10/09/23
--- OUTSIDE RECORDS SUMMARY | 2025-03-29 13:44 | XMS_ITS | Encounter Summary ---
Author Organization [place] [address] Care Team Providers Care Boiler Tenders Supervisor Name Role Phone No Pcp, Per Patient Primary Care Provider Nicolás velasquez Reason for Visit * Reason Onset Date Comments Results 03/23/2025 Encounter Details Date Type Department Care Team (Late Contact Info) Description 03/23/2025 Telephone [facility] Edg [address] [address] Rhoda Cifuentes, RN Results Social History Tobacco Use Types Packs/Day Years [...] on file documented as of this encounter Miscellaneous Notes * Telephone Encounter - Rhoda Cifuentes RN - 03/23/2025 9:29 AM EDT Pt called asking about hcg levels that were drawn yesterday. Advised that J had not reviewed yet however levels came back 76,184 so it would be ok to schedule US and NOO visit. transferred to [facility] to get scheduled. documented in this encounter Plan of Treatment Upcoming Encounters Date Type Department Care Team (Late st Contact Info) Description 04/05/2025 3:30 PM EST Clinical Support [facility] Edg [address] [facility] [address] [place] [phone] 04/05/2025 4:00 PM EST INITIAL VISIT [facility] Edg [address] [facility] [address] [place] [phone] documented as of this encounter Goals Goal Patient Goal Type Associated Problems Recent Progress Patient-Stated? Author Maintain a healthy diet, exercise regularly and maintain an ideal body weight General No Catie Soler RMA documented as of this encounter Visit Diagnoses Not on filedocumented in this encounter Care Teams Boiler Tenders Supervisor Relationship Specialty Start Date End Date No Pcp, Per Patient PCP - General 12/05/23 documented as of this encounter
--- OUTSIDE RECORDS SUMMARY | 2025-03-29 13:44 | XMS_ITS | Referral Summary ---
Author Organization [employer] ([place], [place], [place], [place], [place]) Address [address] [place] [address] Care Team Providers Care Grocery Clerk Marking Name Role Phone Lit De Leon MD Primary Care Provider [phone] Allergies No known active allergies Medications No [...] Date Anupam rded Speak language other than Panamanian at home Not on file 10/09/2023 Want [...] 10/09/2023 4:21 PM EDT Plan of Treatment Not on file Insurance [facility] Care Teams Grocery Clerk Marking Relationship Specialty Start Date End Date Lit De Leon MD [address] [place] [address] PCP - General Family Medicine 10/09/23
--- OUTSIDE RECORDS SUMMARY | 2025-03-29 13:44 | XMS_ITS | Encounter Summary ---
Author Organization [facility] [place] [address] Care Team Providers Care Provider Engagement Executive Name Role Phone No Pcp, Per Patient Primary Care Provider Nicolás velasquez Encounter Details Date Type Department Care Team (Latest Contact Info) Description 03/27/2025 Results Follow-Up [facility] [address] [phone] Dashawn Mcgrath MD [address] [place] [address] HUMAN CHORIONIC GONADOTROPIN QUANTITATIVE, ABORH, ANTIBODY SCREEN IGG, BB HISTORY CHECK Social History Tobacco Use Types Packs/Day Years [...] on file documented as of this encounter Plan of Treatment Upcoming Encounters Date Type Department Care Team (Late st Contact Info) Description 04/05/2025 3:30 PM EST Clinical Support [facility] [address] [address] 04/05/2025 4:00 PM EST INITIAL VISIT [address] [phone] documented as of this encounter Goals Goal Patient Goal Type Associated Problems Recent Progress Patient-Stated? Author Maintain a healthy diet, exercise regularly and maintain an ideal body weight General No Ryder, Catie Marlene, RMA documented as of this encounter Visit Diagnoses Not on filedocumented in this encounter Care Teams Provider Engagement Executive Relationship Specialty Start Date End Date No Pcp, Per Patient PCP - General 12/05/23 documented as of this encounter
--- OUTSIDE RECORDS SUMMARY | 2025-03-29 13:44 | XMS_ITS | Clinical Summary ---
Author Organization Healthcare Address [address] [place] [address] Care Team Providers Care Supervising Producer Name Role Phone Unavailable Primary Care Provider Unavailabl e Social History Tobacco Use Types Packs/Day Years Used Date Smoking Tobacco: Never Assessed Comments Unknown Sex and Gender Information Value Date Recorded Sex Assigned at Female 04/23/2021 1:00 PM EST Legal Sex Female 6:04 PM EDT Gender Identity Female 04/23/2021 1:00 PM EST Sexual Orientation Don't know 04/23/2021 1: 00 PM EST Plan of Treatment Health Maintenance Due Date Last Done Comments [facility]-Depression Screening 1991 [facility]-Infant/Child/Adol SDOH Screenings 1991 [facility]-Varicella Vaccines (1 of 2 - 13+ 2-dose series) 2004 [facility]- SDOH Screenings 2009 [facility]-Adult SDOH Screenings 2009 [facility]-Hepatitis B Vaccines (1 of 3 - 19+ 3-dose series) 2010 [facility]-Pap Smear 2012 HPV Vaccines (2 - 3-dose SCD M series) 11/13/2020 10/16/2020 [facility]-Cervical Cancer Screening 2021 [facility]-HPV/Cotest 2021 [id number] Vaccine (2 - 20 25-26 season) 2025 10/28/2021 [facility]-Influenza Vaccine (#1) 2025 03/27/2021 [facility]-DTaP,Tdap,and Td Vaccine s (2 - Td or Tdap) 07/01/2031 07/01/2021 [facility]-Zoster Vaccines (1 of 2) 2041 [facility]-Hepatitis A Vaccines Aged Out 07/15/2018 No longer eligible based on patient's age to complete this topic [facility]-HIB Vaccines Aged Out No longer e ligible based on patient's age to complete this topic [facility]-IPV Vaccines Aged Out No longer e ligible based on patient's age to complete this topic [facility]-Pneumococcal Vaccine: Pediatrics (0 to 5 Years) and At-Risk Patients (6 to 49 Years) Aged Out No long er eligible based on patient's age to complete this topic [facility]-Rotavirus Vaccines Aged Out No lo nger eligible based on patient's age to complete this topic Insurance MEDICAID
--- OUTSIDE RECORDS SUMMARY | 2025-03-29 13:45 | XMS_ITS | Clinical Summary ---
Author Organization [facility] Address [address] [place] [address] Phone Care Team Providers Care Director Of Manufacturing Name Role Phone No Pcp, Per Patient Primary Care Provider Unavai lable Allergies No known active allergies Medications ergocalciferol (VITAMIN D) 50,000 unit Oral CapsuleIndicati ons:Vitamin D deficiency Take 1 Cap by mouth once a week. 4 Cap 2 7 Active Additional Information Patient not taking.Reported on 12/08/2017 cyanocobalamin 1,000 mcg Oral Tablet Take 1,000 mcg by mouth daily. Active fUROsemide (LASIX) 20 mg Oral TabletIndicatio ns:Peripheral edema TAKE 1 TAB BY MOUTH DAILY. 30 Tab 7 Active Additional Information Patient not taking.Reported on 12/08/2017 busPIRone (BUSPAR) 10 mg Oral TabletIndicatio ns:ADELITA (generalized anxiety disorder) TAKE 1 TAB BY MOUTH 2 TIMES DAILY. 60 Tab 7 Active Additional Information Patient not taking.Reported on 12/08/2017 DULoxetine (CYMBALTA) 30 mg Oral Capsule, Delayed Release(E.C.)In dications:ADELITA (generalized anxiety disorder) TAKE 1 CAPSULE ONCE DAILY FOR 7 DAYS, THEN INCREASE TO 2 CAPSULES ONCE DAILY 60 Cap 7 Active Additional Information Patient not taking.Reported on 12/08/2017 lisinopriL (PRINIVIL;ZESTR IL) 20 mg Oral Tablet tablet Take 20 mg by mouth daily. 5 Active hydrOXYzine (ATARAX) 25 mg Oral Tablet Take 25 mg by mouth once. 5 Active DULoxetine (CYMBALTA) 60 mg Oral Capsule, Delayed Release(E.C.) Take 60 mg by mouth daily. 5 Active busPIRone (BUSPAR) 15 mg Oral Tablet Take 15 mg by mouth 3 times daily. 5 Active hydroCHLOROthia zide 25 mg Oral Tablet Take 25 mg by mouth daily. 5 Active Active Problems Patient Care Coordination No te Formatting of this note migh t be different from the original. Patient has had 5 No Shows . At [facility] Leona Gamez # [id number] As expected 04/20/2017 Problem Noted Date Diagnosed Date Severe episode of recurrent major depressive disorder, without psychotic features 09/24/2016 Anxiety and depression 01/28/2016 Overview (01/28/2016): on prozac Obesity, morbid, BMI 50 or higher 01/28/2016 Encounters Date Type Department Care Team Description 03/27/2025 Results Follow-Up [facility] [address] [place] [address] Dashawn Mcgrath MD HUMAN CHORIONIC GONADOTROPIN QUANTITATIVE, ABORH, ANTIBODY SCREEN IGG, BB HISTORY CHECK 03/23/[address] [place] [address] Rhoda Cifuentes RN Results 03/22/2025 10:04 AM EDT - 03/22/2025 11:59 PM EDT Hospital Encounter EDG LAB [address] [place], [place] [id number] Early stage of ; Amenorrhea Discharge Disposition: Home or Self Care 03/22/2025 9:00 AM EDT Office Visit [address] [place] [address] Dashawn Mcgrath MD Early stage of (Primary Dx); History of ectopic ; Amenorrhea from Last 3 Months Immunizations Immunization Administration Dates Next Due Tdap 12/05/2023 Surgical History Surgery Date Site/Laterality Comments SECTION Medical History Medical History Date Comments Depression Family History Relation Name Status Comments Father Alive Mother Alive Social History Tobacco Use Types Packs/Day Years [...] Pressure 118/74 03/22/2025 9:31 AM EDT Pulse 90 12/05/2023 3:43 PM EDT Temperature 37.2 C (99 F) 12/05/2023 11:50 AM EDT Respiratory Rate 18 12/05/2023 11:5 0 AM EDT Oxygen Saturation 97% 12/05/2023 3:43 PM EDT Inhaled Oxygen Concentration - - Weight 153.1 kg (337 lb 9.6 oz) 03/22/2025 9:31 AM EDT Height 167.6 cm (5' 6 ) 03/22/2025 9:31 AM EDT Body Mass Index 54.49 03/22/2025 9:31 AM EDT Plan of Treatment Upcoming Encounters Date Type Department Care Team (Late st Contact Info) Description 04/05/2025 3:30 PM EST Clinical Support [address] [phone] 04/05/2025 4:00 PM EST INITIAL VISIT [address] [address] Health Maintenance Due Date Last Done Comments Annual Wellness Exam 1994 Hepatitis B Vaccine (1 of 3 - 19+ 3-dose series) 2010 Cervical Cancer Screening 2012 Pap Smear 2012 HPV/Pap Cotest 2021 COVID-19 Vaccine ( - 2024-2 6 season) 2025 11/25/2021, 10/28/2021 Influenza Vaccine (#1) 2025 , 03/11/2016 (Declined) DTaP/TDaP/Td (3 - Td or Tdap) 12/04/2033, 07/01/2021 Meningococcal B Vaccine Aged Out No l onger eligible based on patient's age to complete this topic Pneumococcal Vaccine 0-49 Aged Out No longer eligible based on patient's age to complete this topic Goals Goal Patient Goal Type Associated Problems Recent Progress Patient-Stated? Author Maintain a healthy diet, exercise regularly and maintain an ideal body weight General No Catie Soler, RMA Procedures Procedure Name Priority Date/Time Associated Diagnosis Comments BB HISTORY CHECK Routine 03/22/2025 10:1 6 AM EDT Early stage of Amenorrhea ANTIBODY SCREEN IGG Routine 03/22/2025 1 0:16 AM EDT Early stage of Amenorrhea ABORH Routine 03/22/2025 10:16 AM EDT Early stage of Amenorrhea TYPE AND SCREEN Routine 03/22/2025 10:16 AM EDT Early stage of Amenorrhea HUMAN CHORIONIC GONADOTROPIN QUANTITATIVE Routine 03/22/2025 10:16 AM EDT Early stage of Amenorrhea POCT URINE TELCOR Routine 03/22/2025 9:38 AM EDT Amenorrhea SEP URINALYSIS POC Routine 03/22/2025 9: 23 AM EDT Early stage of from Last 3 Months Results * BB HISTORY CHECK (03/22/2025 10:16 AM EDT) BB HISTORY CHECK (1) No Previous History 03/22/2025 1:02 PM EDT [facility] BLOOD BANK Blood VENOUS BLOOD / Unknown Venipuncture / Unknown 03/22/2025 10:16 AM EDT 03/22/2025 10:16 AM EDT us Dashawn Mcgrath MD BLOOD BANK ORDERABLES Final Re sult [facility] BLOOD BANK [address] [place] [phone] * ABORH (03/22/2025 10:16 AM EDT) Pathologist [facility] ABORH Int O POS 03/22/2025 1:3 6 PM EDT [facility] BLOOD [facility] Blood VENOUS BLOOD / Unknown Venipuncture / Unknown 03/22/2025 10:16 AM EDT 03/22/2025 10:16 AM EDT Dashawn Mcgrath MD BLOOD BANK ORDERABLES Final Re sult [facility] BLOOD [address] [address] * ANTIBODY SCREEN IGG (03/22/2025 10:16 AM EDT) [facility] ABSC IgG Int Negative 03/22/2025 1:42 PM EDT [facility] BLOOD [facility] Blood VENOUS BLOOD / Unknown Venipuncture / Unknown 03/22/2025 10:16 AM EDT 03/22/2025 10:16 AM EDT Dashawn Mcgrath MD BLOOD BANK ORDERABLES Final Re sult Performing Organization Address [facility] Co de Phone Number [address] [address] * (ABNORMAL) HUMAN CHORIONIC GONADOTROPIN QUANTITATIVE (03/22/2025 10:16 AM EDT) [facility] Hcg Quant 76,184(H) <5 mIU/mL 03/22/2025 2:25 PM EDT [facility] [email or web address] Blood VENOUS BLOOD / Unknown Venipuncture / Unknown 03/22/2025 10:16 AM EDT 03/22/2025 10:16 AM EDT Narrative [facility] [email or web address] - 03/22/2025 2:25 PM EDT Female (non-): [...] Mcgrath MD CHEMISTRY ORDERABLES Final Res ult Performing Organization Address City/[facility]/ZIP Co de Phone Number [facility] [employer] [email or web address] [address] [facility], [place] [address] * POCT URINE TELCOR (03/22/2025 9:38 AM EDT) Preg Test, Ur Positive 03/22/2025 9:41 AM EDT [facility] Urine STRUCTURE OF URINARY TRACT PROPER / Unknown 03/22/2025 9:38 AM EDT 03/22/2025 9:41 AM EDT Dashawn Mcgrath MD POINT OF CARE TEST ORDERABLES Final Result Performing Organization Address [facility] de Phone Number [facility] 302 20 [facility], [address] [address] [phone] * SEP URINALYSIS POC (03/22/2025 9:23 AM EDT) UA Color POC Yellow Color 03/22/2025 9:26 AM EDT [facility] 302 UA Appear POC Clear Clear 03/22/2025 9:26 AM EDT [facility] 302 UA Gluc POC Negative Negative mg/dL 03/22/2025 9:26 AM EDT [facility] 302 UA Bili POC Negative Negative 03/22/2025 9:26 AM EDT [facility] 302 UA Ketones POC Negative Negative mg/dL 03/22/2025 9:26 AM EDT [facility] 302 UA SG POC 1.020 1.001 - 1.035 no units 03/22/2025 9:26 AM EDT [facility] 302 UA Blood POC Negative Negative 03/22/2025 9:26 AM EDT [facility] 302 UA pH POC 5.5 5.0 - 8.0 pH 03/22/2025 9:26 AM EDT [facility] 302 UA Protein POC Negative Negative mg/dL 03/22/2025 9:26 AM EDT [facility] 302 UA Urobilinogen POC 0.2 0.2, 1.0 03/22/2025 9:26 AM EDT [facility] 302 UA Nitrite POC Negative Negative 03/22/2025 9:26 AM EDT [facility] 302 UA Leuk Est POC Negative Negative 9:26 AM EDT [facility] 302 Urine STRUCTURE OF URINARY TRACT PROPER / Unknown 03/22/2025 9:23 AM EDT 03/22/2025 9:26 AM EDT Dashawn Mcgrath MD POINT OF CARE TEST ORDERABLES Final Result Performing Organization Address City/State/[facility] de Phone Number [facility] [address] [place] [address], [place] [phone] [phone] from Last 3 Months Insurance Care Teams Director Of Manufacturing Relationship Specialty Start Date End Date No Pcp, Per Patient PCP - General 12/05/23
--- OUTSIDE RECORDS SUMMARY | 2025-03-29 13:46 | XMS_ITS | Data Portability ---
Author Organization [facility] Address [address] [place] [address] Assessment Encounter Date Assessment Date Assessment LastModified by Organization Details LastModified Time 08/21/2021 08/21/2021 31 yo here for OB visit evirgin Not available 08/18/2021 13:15:07 08/25/2021 08/25/2021 31 yo here for OB visit evirgin Not available 08/22/2021 10:24:47 Plan of Treatment Reminders Order Date Submit Date Provider Last Modified By Organization Details Last Modified Time Details Appointments None recorded. Lab christ sp DNA, vaginal 2021 022 [facility] [address] [place] [address], [address], 2 16:59:45 bacterial vaginosis panel, vaginal 2021 022 [facility] [address] [place] [address], [address], 2 16:59:45 trichomonas vaginalis DNA, PCR, unspecified specimen 2021 022 [facility] [address] [place] [address], [address], 2 16:59:44 urinalysis, dipstick 2021 022 [facility] [place] [facility], [address] [place] [address] , [place], [address], 12:34:03 urinalysis, dipstick 2021 022 [facility] 2 [place] [facility], [address] [place] [address] , [place], [address], 19:33:57 Referral gastroenter ologist referral 2021 [email or web address], [address] [facility], [address] [place] [address], [address], 08:44:14 Procedures None recorded. Surgeries None recorded. Imaging non-stress test 2021 022 [email or web address] [place] [facility], [address] [place] [address] , [place], [address], 13:15:01 US, obstetric, biophysical profile + non-stress test 2021 022 [email or web address] Not available 13:59:49 [facility]-stress test 2021 [facility]22 [facility] [place] [facility], [address] [place] [address] , [place], [address], 19:33:56 US, obstetric, biophysical profile 2021 022 [facility] 2 [place] [facility], [address] [place] [address] , [place], [address], 19:33:56 Medication Orders terconazole 0.4 % vaginal cream 2021 [facility], [address] [place] [address], [address], 14:55:23 Patient TargetsNo targets recorded. Patient InstructionsNo instructions recorded. Reason for Referral Structurer Referral for Chronic hepatitis C Referring Physician: Clari Maldonado, MECHANICAL PRESS OPERATOR, Encounter Date: 10/28/2021 Results Created Date Observation Date Name Description Value Unit Range Abnormal Flag Note LastModifiedBy Organization Detail LastModifiedTime 08/08/19 22 08/07/2021 STREP GROUP B LINDSEY note See Note Order ing Provi reji: Mitali Matt (Appl eton) Not Available [facility]( [facility]) [address] [place] [address] [place], [address], 08/09/2021 09:50:37 08/08/19 22 08/07/2021 STREP GROUP B LINDSEY strep group B LINDSEY See Below MARRI ED NAME IS DONAVON ROUSSEAU N NAME IS STAR ROJO HUNTER MORIN ON AND ORDER ING STREP GROUP B LINDSEY(F ) Jose Enrique Date/ Time: 08/07 16:42 Adrian Date/ Time: 08/09 09:49 SOURC E: VAGIN AL/PE RINEA L/REC BANDAR SPEC DESC: STREP B LINDSEY NEGAT MALI FOR GBS BY MOLEC CARLYLE VALDES Y Not Available [facility]( Lab) [address] [place] [address] [place], [address], 08/09/2021 09:50:37 08/08/19 22 08/07/2021 STREP GROUP B LINDSEY performing lab see note ML - [facility] [address] [facility] [address] Not Available [facility]( Lab) [address] [place] [address] [place], [address], 08/09/2021 09:50:37 08/12/19 22 08/15/2021 COMPR EHENS MALI DRUG KAUSHIK SIS,U R summary report (summary) FINAL ===== ===== ===== ===== ===== ===== ===== ===== ===== ===== ===== ===== ===== === COMPR EHENS MALI DRUG KAUSHIK SIS,U R ===== ===== ===== ===== ===== ===== ===== ===== ===== ===== ===== ===== ===== === Test Resul t Flag Units Drug Prese nt Bupre norph ine 461 ng/mg creat Norbu preno rphin e 1037 ng/mg creat Sourc e of bupre norph ine is a sched uled presc ripti on medic ation . Norbu preno rphin e is an expec jaky metab olite of bupre norph ine. Dulox etine PRESE NT ===== ===== ===== ===== ===== ===== ===== ===== ===== ===== ===== ===== ===== === Test Resul t Flag Units Ref Range Creat inine 84 mg/dL >=20 ===== ===== ===== ===== ===== ===== ===== ===== ===== ===== ===== ===== ===== === For clini jesus consu ltati on, pleas e call . ===== ===== ===== ===== ===== ===== ===== ===== ===== ===== ===== ===== ===== === Not Available [facility] [address] [facility] [place], [address], 08/15/2021 22:07:06 08/12/19 22 08/15/2021 COMPR EHENS MALI DRUG KAUSHIK SIS,U R pdf . Not Available [facility] [address] [facility] [place], [address], 08/15/2021 22:07:06 08/19/19 22 08/18/2021 CBC W/AUT O DIFFE RENTI AL note See Note Order ing Provi reji: Heydi Fisher (Show er) Not Available [address] , [place], [address], 08/18/2021 13:07:13 08/19/19 22 08/18/2021 CBC W/AUT O DIFFE RENTI AL white blood cell 13.2 10e3/ uL 4.5-13 .0 high Not Available [address] [place], [place], [address], 08/18/2021 13:07:13 08/19/19 22 08/18/2021 CBC W/AUT O DIFFE RENTI AL red blood cell 3.97 10e6/ uL 3.80-5 .10 normal Not Available [address] [place], [place], [address], 08/18/2021 13:07:13 08/19/19 22 08/18/2021 CBC W/AUT O DIFFE RENTI AL hemoglobin 12.0 g/dL 11.5-1 5.3 normal Not Available [address] [place], [place], [address], 08/18/2021 13:07:13 08/19/19 22 08/18/2021 CBC W/AUT O DIFFE RENTI AL hematocrit 34.6 % 34.0-4 6.0 normal Not Available [address] [place], [address], 08/18/2021 13:07:13 08/19/19 22 08/18/2021 CBC W/AUT O DIFFE RENTI AL mean cell volume 87 fL 78.0-9 8.0 normal Not Available [address] [place], [place], [address], 08/18/2021 13:07:13 08/19/19 22 08/18/2021 CBC W/AUT O DIFFE RENTI AL mean cell HGB 30.2 pg 25.0-3 5.0 normal Not Available [address] , [place], [address], 08/18/2021 13:07:13 08/19/19 22 08/18/2021 CBC W/AUT O DIFFE RENTI AL mean cell HGB concentratio n 34.7 g/dL 31.0-3 6.0 normal Not Available [address] , [place], [address], 08/18/2021 13:07:13 08/19/19 22 08/18/2021 CBC W/AUT O DIFFE RENTI AL red cell distribution width 13.1 % 11.0-1 5.0 normal Not Available [address] , [place], [address], 08/18/2021 13:07:13 08/19/19 22 08/18/2021 CBC W/AUT O DIFFE RENTI AL platelet count 261 10e3/ uL 150-40 0 normal Not Available [address] , [place], [address], 08/18/2021 13:07:13 08/19/19 22 08/18/2021 CBC W/AUT O DIFFE RENTI AL immature granulocyte % 1 0-1 normal Not Available [address] , [place], [address], 08/18/2021 13:07:13 08/19/19 22 08/18/2021 CBC W/AUT O DIFFE RENTI AL neutrophil % 74 % 35-75 normal Not Available [address] , [place], [address], 08/18/2021 13:07:13 08/19/19 22 08/18/2021 CBC W/AUT O DIFFE RENTI AL lymphocyte % 18 % 10-50 normal Not Available [address] , [place], [address], 08/18/2021 13:07:13 08/19/19 22 08/18/2021 CBC W/AUT O DIFFE RENTI AL monocyte % 7 % 0-15 normal Not Available [address] , [place], [address], 08/18/2021 13:07:13 08/19/19 22 08/18/2021 CBC W/AUT O DIFFE RENTI AL eosinophil % 1 % 0-5 normal Not Available [address] , [place], [address], 08/18/2021 13:07:13 08/19/19 22 08/18/2021 CBC W/AUT O DIFFE RENTI AL basophil % 0 % 0-5 normal Not Available [address] [place], [place], [address], 08/18/2021 13:07:13 08/19/19 22 08/18/2021 CBC W/AUT O DIFFE RENTI AL immature granulocyte # 0.10 x1000 /uL 0-0.05 high Not Available [address] [place], [place], [address], 08/18/2021 13:07:13 08/19/19 22 08/18/2021 CBC W/AUT O DIFFE RENTI AL neutrophil # 9.66 x1000 /uL 1.50-8 .00 high Not Available [address] , [place], [address], 08/18/2021 13:07:13 08/19/19 22 08/18/2021 CBC W/AUT O DIFFE RENTI AL lymphocyte # 2.33 x1000 /uL 1.20-5 .20 normal Not Available [address] [place], [place], [address], 08/18/2021 13:07:13 08/19/19 22 08/18/2021 CBC W/AUT O DIFFE RENTI AL monocyte # 0.87 x1000 /uL 0.40-0 .90 normal Not Available [address] [place], [place], [address], 08/18/2021 13:07:13 08/19/19 22 08/18/2021 CBC W/AUT O DIFFE RENTI AL eosinophil # 0.16 x1000 /uL 0.00-0 .50 normal Not Available [address] [place], [place], [address], 08/18/2021 13:07:13 08/19/19 22 08/18/2021 CBC W/AUT O DIFFE RENTI AL basophil # 0.03 x1000 /uL 0.00-0 .30 normal Not Available [address] [place], [place], [address], 08/18/2021 13:07:13 08/19/19 22 08/18/2021 CBC W/AUT O DIFFE RENTI AL NRBC automated 0.0 /100_ WBC Not Available [address] [place], [place], [address], 08/18/2021 13:07:13 08/19/19 22 08/18/2021 CBC W/AUT O DIFFE RENTI AL performing lab see note ML - [facility] R [address] [place] [address] DRIVE [facility] [address] Not Available [address] [place], [place], [address], 08/18/2021 13:07:13 08/19/19 22 08/18/2021 URINA LYSIS COMPL ETE note See Note Order ing Provi reji: Heydi Fisher (Show er) Not Available [address] [place], [address], 08/18/2021 13:16:34 08/19/19 22 08/18/2021 URINA LYSIS COMPL ETE UA method of collection CLEAN CATCH Not Available [address] [place], [address], 08/18/2021 13:16:34 08/19/19 22 08/18/2021 URINA LYSIS COMPL ETE UA color YELLOW yellow Not Available [address] [place], [address], 08/18/2021 13:16:34 08/19/19 22 08/18/2021 URINA LYSIS COMPL ETE UA appearance CLEAR clear Not Available [address] [place], [address], 08/18/2021 13:16:34 08/19/19 22 08/18/2021 URINA LYSIS COMPL ETE UA glucose dipstick NEGATI VE negati ve Not Available [address] [place], [address], 08/18/2021 13:16:34 08/19/19 22 08/18/2021 URINA LYSIS COMPL ETE UA bilirubin dipstick NEGATI VE negati ve Not Available [address] [place], [address], 08/18/2021 13:16:34 08/19/19 22 08/18/2021 URINA LYSIS COMPL ETE UA ketone dipstick NEGATI VE negati ve Not Available [address] [place], [address], 08/18/2021 13:16:34 08/19/19 22 08/18/2021 URINA LYSIS COMPL ETE UA specific gravity 1.020 1.005- 1.030 normal Not Available [address] [place], [address], 08/18/2021 13:16:34 08/19/19 22 08/18/2021 URINA LYSIS COMPL ETE UA blood dipstick NEGATI VE negati ve Not Available [address] [place], [place], [address], 08/18/2021 13:16:34 08/19/19 22 08/18/2021 URINA LYSIS COMPL ETE UA pH dipstick 6.5 5.0-9. 0 normal Not Available [address] [place], [address], 08/18/2021 13:16:34 08/19/19 22 08/18/2021 URINA LYSIS COMPL ETE UA protein dipstick 1+ negati ve abnormal Not Available [address] [place], [address], 08/18/2021 13:16:34 08/19/19 22 08/18/2021 URINA LYSIS COMPL ETE UA urobilinogen dipstick 4 mg/dL <1 abnormal Not Available [address] [place], [address], 08/18/2021 13:16:34 08/19/19 22 08/18/2021 URINA LYSIS COMPL ETE UA nitrite dipstick NEGATI VE negati ve Not Available [address] [place], [address], 08/18/2021 13:16:34 08/19/19 22 08/18/2021 URINA LYSIS COMPL ETE UA leukocyte esterase dipstick TRACE negati ve Not Available [address] [place], [address], 08/18/2021 13:16:34 08/19/19 22 08/18/2021 URINA LYSIS COMPL ETE UA RBC 0-5 RBC/h pf none seen abnormal Not Available [address] , [place], [address], 08/18/2021 13:16:34 08/19/19 22 08/18/2021 URINA LYSIS COMPL ETE UA WBC 0-5 WBC/h pf 0-5 Not Available [address] [place], [address], 08/18/2021 13:16:34 08/19/19 22 08/18/2021 URINA LYSIS COMPL ETE UA epithelial cells 6-10 SQUAMO US epi/h pf 0-5 Not Available [address] , [place], [address], 08/18/2021 13:16:34 08/19/19 22 08/18/2021 URINA LYSIS COMPL ETE UA bacteria TRACE none seen Not Available [address] , [place], [address], 08/18/2021 13:16:34 08/19/19 22 08/18/2021 URINA LYSIS COMPL ETE UA mucus NONE SEEN none seen Not Available [address] , [place], [address], 08/18/2021 13:16:34 08/19/19 22 08/18/2021 URINA LYSIS COMPL ETE UA amorphous sediment NONE SEEN none seen Not Available [address] [place], [address], 08/18/2021 13:16:34 08/19/19 22 08/18/2021 URINA LYSIS COMPL ETE performing lab see note - [facility] [address] [place] [address] Not Available [address] [place], [address], 08/18/2021 13:16:34 08/19/19 22 08/18/2021 POTAS SIUM note See Note Order ing Provi reji: Heydi Fisher (Show er) Not Available [address] [place], [address], 08/18/2021 14:11:26 08/19/19 22 08/18/2021 POTAS SIUM potassium 4.3 mmol/ L 3.5-5. 1 normal SPECI MEN SLIGH TLY HEMOL YZED, RESUL TS MAY BE AFFEC JAKY Not Available [address] [place], [address], 08/18/2021 14:11:26 08/19/19 22 08/18/2021 POTAS SIUM performing lab see note ML - [facility] [address] [facility] [address] [facility] [place] [address] Not Available [address] [place], [address], 08/18/2021 14:11:26 08/23/19 22 08/22/2021 SARS- COV-2 [facility] note See Note Order ing Provi reji: Heydi Fisher (Show er) Not Available [facility]( [facility]) [address] [place] [address] [place], [address], 08/22/2021 17:35:24 08/23/19 22 08/22/2021 SARS- COV-2 [facility] sars-cov-2 NEGATI VE FOR COVID1 9 negati ve Not Available [facility]( [facility]) [address] [place] [address] [place], [address], 08/22/2021 17:35:24 08/23/19 22 08/22/2021 [facility]: * Testi ng was perfo rmed by the Cephe id GeneX pert Xpres s SARS- CoV-2 test. The Xpres s SARS- CoV-2 test is a real- time PCR test inten ded for the quali tativ e detec tion of nucle ic acid from the SARS- CoV-2 in respi rator y speci mens. Testi ng is limit ed to the FDA guide lines for Emerg ency Use Autho rizat ion for perfo rming SARS- CoV-2 testi ng. Negat mali resul ts do not precl ude SARS- CoV-2 infec tion and shoul d not be used as the sole basis for treat ment or other patie nt manag ement decis ions. Negat mali resul ts must be combi annabella with clini jesus obser vatio ns, patie nt histo ry, and epide miolo gical infor matshanel n. For the most up to date infor luis m cho on COVID -19 visit : cdc.g ov/CO VID19 . Not Available [facility]( Lab) [address] [place] [address] , [place], [address], 08/22/2021 17:35:24 08/23/19 22 08/22/2021 SARS- COV-2 [facility] performing lab see note ML - [facility] [address] [facility] [address] Not Available [facility]( Lab) [address] [place] [address] , [place], [address], 08/22/2021 17:35:24 08/29/19 22 08/28/2021 UR DRUG SCREE N note See Note Order ing Provi reji: Heydi Fisher (Show er) Not Available [address] , [place], [address], 08/28/2021 06:42:43 08/29/19 22 08/28/2021 UR DRUG SCREE N ur cocaine qual NEGATI VE 150NG /mL det limit= Not Available [address] , [place], [address], 08/28/2021 06:42:43 08/29/19 22 08/28/2021 UR DRUG SCREE N ur cannabinoid( THC) qual NEGATI VE 50NG/ mL det limit= Not Available [address] , [place], [address], 08/28/2021 06:42:43 08/29/19 22 08/28/2021 UR DRUG SCREE N ur amphetamine qual NEGATI VE 500NG /mL det limit= Not Available [address] , [place], [address], 08/28/2021 06:42:43 08/29/19 22 08/28/2021 UR DRUG SCREE N ur barbiturate qual NEGATI VE 200NG /mL det limit= Not Available [address] , [place], [address], 08/28/2021 06:42:43 08/29/19 22 08/28/2021 UR DRUG SCREE N ur benzodiazepi ne qual NEGATI VE 200NG /mL det limit= Not Available [address] [place], [address], 08/28/2021 06:42:43 08/29/19 22 08/28/2021 UR DRUG SCREE N ur opiates qual NEGATI VE 300NG /mL det limit= Not Available [address] [place], [address], 08/28/2021 06:42:43 08/29/19 22 08/28/2021 UR DRUG SCREE N ur phencyclidin e (pcp) qual NEGATI VE 25NG/ mL det limit= Not Available [address] [place], [address], 08/28/2021 06:42:43 08/29/19 22 08/28/2021 UR DRUG SCREE N ur tricylic group qual NEGATI VE 1000N G/m det limit= Not Available [address] , [place], [address], 08/28/2021 06:42:43 08/29/19 22 08/28/2021 UR DRUG SCREE N methadone urine NEGATI VE 300NG /mL det limit= Not Available [address] , [place], [address], 08/28/2021 06:42:43 08/29/19 22 08/28/2021 UR DRUG SCREE N ur MDMA (ecstacy) ql NEGATI VE 500NG /mL det limit= Not Available [address] , [place], [address], 08/28/2021 06:42:43 08/29/19 22 08/28/2021 UR DRUG SCREE N ur oxycodone ql NEGATI VE 100NG /mL det limit= Not Available [address] , [place], [address], 08/28/2021 06:42:43 08/29/19 22 08/28/2021 UR DRUG SCREE N ur buprenorphin e qual POSITI VE 10NG/ mL det limit= abnormal Not Available [address] , [place], [address], 08/28/2021 06:42:43 08/29/19 22 08/28/2021 UR DRUG SCREE N performing lab see note - [facility] R [address] [facility] [address] [facility] [address] Not Available [address] , [place], [address], 08/28/2021 06:42:43 08/29/19 22 08/28/2021 CORD BLOOD PH note See Note Order ing Provi reji: Heydi Fisher (Show er) Not Available [address] , [place], [address], 08/28/2021 08:52:40 08/29/19 22 08/28/2021 CORD BLOOD PH cord blood pH 7.27 7.110- 7.360 normal Not Available [address] , [place], [address], 08/28/2021 08:52:40 08/29/19 22 08/28/2021 CORD BLOOD PH performing lab see note - [address] [facility] [address] Not Available [address] , [place], [address], 08/28/2021 08:52:40 08/29/19 22 08/28/2021 UR BUPRE NORPH INE LC/MS /MS note See Note Order ing Provi reji: Heydi Fisher (Show er) Not Available [address] , [place], [address], 09/11/2021 03:09:39 08/29/19 22 08/28/2021 UR BUPRE NORPH INE LC/MS /MS ur buprenorphin e conf () abnormal . Confi rmati on perfo rmed by Mass Spect romet ry Not Available [address] , [place], [address], 09/11/2021 03:09:39 08/29/19 22 08/28/2021 UR BUPRE NORPH INE LC/MS /MS ur buprenorphin e lc/MS/MS 251 NG/mL cutoff =10 Not Available [address] , [place], [address], 09/11/2021 03:09:39 08/29/19 22 08/28/2021 UR BUPRE NORPH INE LC/MS /MS ur norbuprenorp nancy lc/MS/MS 1523 NG/mL cutoff =10 Perfo rmed At: UI, [facility]p OTS RTP [address] [facility] , [facility] [place], [address] Toya Huynh , PhD, Phone : [phone] Not Available [address] , [place], [address], 09/11/2021 03:09:39 08/29/19 22 08/28/2021 UR BUPRE NORPH INE LC/MS /MS performing lab see note LC2 - LAB[facility] RP CLIEN T# [id number] 022 [address] [place] [address] Not Available [address] , [place], [address], 09/11/2021 03:09:39 08/29/19 22 08/28/2021 UR BUPRE NORPH INE LC/MS /MS note See Note Order ing Provi reji: Heydi Fisher (Show er) Not Available [address] , [place], [address], 09/11/2021 10:16:17 08/29/19 22 08/28/2021 UR BUPRE NORPH INE LC/MS /MS ur buprenorphin e conf Positi ve () abnormal . Confi rmati on perfo rmed by Mass Spect romet ry Not Available [address] , [place], [address], 09/11/2021 10:16:17 08/29/19 22 08/28/2021 UR BUPRE NORPH INE LC/MS /MS ur buprenorphin e lc/MS/MS 251 NG/mL cutoff =10 Not Available [address] , [place], [address], 09/11/2021 10:16:17 08/29/19 22 08/28/2021 UR BUPRE NORPH INE LC/MS /MS ur norbuprenorp nancy lc/MS/MS 1523 NG/mL cutoff =10 Perfo rmed At: UI, [facility]p OTS RTP [address] [facility] , [place], [address] Toya Huynh , PhD, Phone : [phone] Not Available [address] , [place], [address], 09/11/2021 10:16:17 08/29/19 22 08/28/2021 UR BUPRE NORPH INE LC/MS /MS performing lab see note LC2 - [facility] RP CLIEN T# [id number] [id number] [address] [place] [address] Not Available [address] [place], [address], 09/11/2021 10:16:17 08/30/19 22 08/29/2021 CBC W/AUT O DIFFE RENTI AL note See Note Order ing Provi reji: Heydi Fisher (Show er) Not Available [address] , [place], [address], 08/29/2021 05:41:59 08/30/19 22 08/29/2021 CBC W/AUT O DIFFE RENTI AL white blood cell 11.4 10e3/ uL 4.5-13 .0 normal Not Available [address] [place], [address], 08/29/2021 05:41:59 08/30/19 22 08/29/2021 CBC W/AUT O DIFFE RENTI AL red blood cell 3.41 10e6/ uL 3.80-5 .10 low Not Available [address] [place], [address], 08/29/2021 05:41:59 08/30/19 22 08/29/2021 CBC W/AUT O DIFFE RENTI AL hemoglobin 10.1 g/dL 11.5-1 5.3 low Not Available [address] , [place], [address], 08/29/2021 05:41:59 08/30/19 22 08/29/2021 CBC W/AUT O DIFFE RENTI AL hematocrit 30.4 % 34.0-4 6.0 low Not Available [address] [place], [place], [address], 08/29/2021 05:41:59 08/30/19 22 08/29/2021 CBC W/AUT O DIFFE RENTI AL mean cell volume 89 fL 78.0-9 8.0 normal Not Available [address] , [place], [address], 08/29/2021 05:41:59 08/30/19 22 08/29/2021 CBC W/AUT O DIFFE RENTI AL mean cell HGB 29.6 pg 25.0-3 5.0 normal Not Available [address] [place], [place], [address], 08/29/2021 05:41:59 08/30/19 22 08/29/2021 CBC W/AUT O DIFFE RENTI AL mean cell HGB concentratio n 33.2 g/dL 31.0-3 6.0 normal Not Available [address] [place], [place], [address], 08/29/2021 05:41:59 08/30/19 22 08/29/2021 CBC W/AUT O DIFFE RENTI AL red cell distribution width 13.2 % 11.0-1 5.0 normal Not Available [address] [place], [place], [address], 08/29/2021 05:41:59 08/30/19 22 08/29/2021 CBC W/AUT O DIFFE RENTI AL platelet count 266 10e3/ uL 150-40 0 normal Not Available [address] [place], [place], [address], 08/29/2021 05:41:59 08/30/19 22 08/29/2021 CBC W/AUT O DIFFE RENTI AL immature granulocyte % 0 0-1 normal Not Available [address] [place], [place], [address], 08/29/2021 05:41:59 08/30/19 22 08/29/2021 CBC W/AUT O DIFFE RENTI AL neutrophil % 63 % 35-75 normal Not Available [address] , [place], [address], 08/29/2021 05:41:59 08/30/19 22 08/29/2021 CBC W/AUT O DIFFE RENTI AL lymphocyte % 26 % 10-50 normal Not Available [address] , [place], [address], 08/29/2021 05:41:59 08/30/19 22 08/29/2021 CBC W/AUT O DIFFE RENTI AL monocyte % 9 % 0-15 normal Not Available [address] [place], [place], [address], 08/29/2021 05:41:59 08/30/19 22 08/29/2021 CBC W/AUT O DIFFE RENTI AL eosinophil % 1 % 0-5 normal Not Available [address] [place], [place], [address], 08/29/2021 05:41:59 08/30/19 22 08/29/2021 CBC W/AUT O DIFFE RENTI AL basophil % 0 % 0-5 normal Not Available [address] [place], [place], [address], 08/29/2021 05:41:59 08/30/19 22 08/29/2021 CBC W/AUT O DIFFE RENTI AL immature granulocyte # 0.05 x1000 /uL 0-0.05 normal Not Available [place] [address], [place], [address], 08/29/2021 05:41:59 08/30/19 22 08/29/2021 CBC W/AUT O DIFFE RENTI AL neutrophil # 7.18 x1000 /uL 1.50-8 .00 normal Not Available [address] [place], [place], [address], 08/29/2021 05:41:59 08/30/19 22 08/29/2021 CBC W/AUT O DIFFE RENTI AL lymphocyte # 2.94 x1000 /uL 1.20-5 .20 normal Not Available [place] [address], [place], [address], 08/29/2021 05:41:59 08/30/19 22 08/29/2021 CBC W/AUT O DIFFE RENTI AL monocyte # 1.06 x1000 /uL 0.40-0 .90 high Not Available [address] Kelly Montez, [place], [address], 08/29/2021 05:41:59 08/30/19 22 08/29/2021 CBC W/AUT O DIFFE RENTI AL eosinophil # 0.15 x1000 /uL 0.00-0 .50 normal Not Available [address] Kelly [place], [place], [address], 08/29/2021 05:41:59 08/30/19 22 08/29/2021 CBC W/AUT O DIFFE RENTI AL basophil # 0.02 x1000 /uL 0.00-0 .30 normal Not Available [place] [address], [place], [address], 08/29/2021 05:41:59 08/30/19 22 08/29/2021 CBC W/AUT O DIFFE RENTI AL NRBC automated 0.0 /100_ WBC Not Available [address] Kelly [place], [place], [address], 08/29/2021 05:41:59 08/30/19 22 08/29/2021 CBC W/AUT O DIFFE RENTI AL performing lab see note ML - [facility] [address] [place] [address] Not Available [address] , [place], [address], 08/29/2021 05:41:59 08/30/19 22 08/29/2021 POTAS SIUM note See Note Order ing Provi reji: Heydi Fisher (Show er) Not Available [address] [place], [place], [address], 08/29/2021 05:51:09 08/30/19 22 08/29/2021 POTAS SIUM potassium 3.5 mmol/ L 3.5-5. 1 normal Not Available [address] , [place], [address], 08/29/2021 05:51:09 08/30/19 22 08/29/2021 POTAS SIUM performing lab see note ML - [facility] [address] [place] [address] Not Available [address] Kelly [place]z, [place], [address], 08/29/2021 05:51:09 08/31/19 22 08/30/2021 CBC W/AUT O DIFFE RENTI AL note See Note Order ing Provi reji: Heydi Fisher (Show er) Not Available [address] [place], [place], [address], 08/30/2021 07:26:42 08/31/19 22 08/30/2021 CBC W/AUT O DIFFE RENTI AL white blood cell 9.0 10e3/ uL 4.5-13 .0 normal Not Available [address] Kelly Montez, [place], [address], 08/30/2021 07:26:42 08/31/19 22 08/30/2021 CBC W/AUT O DIFFE RENTI AL red blood cell 3.59 10e6/ uL 3.80-5 .10 low Not Available [address] Kelly [place], [place], [address], 08/30/2021 07:26:42 08/31/19 22 08/30/2021 CBC W/AUT O DIFFE RENTI AL hemoglobin 10.6 g/dL 11.5-1 5.3 low Not Available [address] Kelly [place], [place], [address], 08/30/2021 07:26:42 08/31/19 22 08/30/2021 CBC W/AUT O DIFFE RENTI AL hematocrit 32.6 % 34.0-4 6.0 low Not Available [address] Kelly [place], [place], [address], 08/30/2021 07:26:42 08/31/19 22 08/30/2021 CBC W/AUT O DIFFE RENTI AL mean cell volume 91 fL 78.0-9 8.0 normal Not Available [address] [place], [place], [address], 08/30/2021 07:26:42 08/31/19 22 08/30/2021 CBC W/AUT O DIFFE RENTI AL mean cell HGB 29.5 pg 25.0-3 5.0 normal Not Available [address] [place], [place], [address], 08/30/2021 07:26:42 08/31/19 22 08/30/2021 CBC W/AUT O DIFFE RENTI AL mean cell HGB concentratio n 32.5 g/dL 31.0-3 6.0 normal Not Available [address] , [place], [address], 08/30/2021 07:26:42 08/31/19 22 08/30/2021 CBC W/AUT O DIFFE RENTI AL red cell distribution width 13.2 % 11.0-1 5.0 normal Not Available [address] , [place], [address], 08/30/2021 07:26:42 08/31/19 22 08/30/2021 CBC W/AUT O DIFFE RENTI AL platelet count 268 10e3/ uL 150-40 0 normal Not Available [address] Kelly [place]z, [place], [address], 08/30/2021 07:26:42 08/31/19 22 08/30/2021 CBC W/AUT O DIFFE RENTI AL immature granulocyte % 1 0-1 normal Not Available [address] , [place], [address], 08/30/2021 07:26:42 08/31/19 22 08/30/2021 CBC W/AUT O DIFFE RENTI AL neutrophil % 58 % 35-75 normal Not Available [address] , [place], [address], 08/30/2021 07:26:42 08/31/19 22 08/30/2021 CBC W/AUT O DIFFE RENTI AL lymphocyte % 30 % 10-50 normal Not Available [address] , [place], [address], 08/30/2021 07:26:42 08/31/19 22 08/30/2021 CBC W/AUT O DIFFE RENTI AL monocyte % 8 % 0-15 normal Not Available [address] Kelly [place], [place], [address], 08/30/2021 07:26:42 08/31/19 22 08/30/2021 CBC W/AUT O DIFFE RENTI AL eosinophil % 3 % 0-5 normal Not Available [address] [place], [place], [address], 08/30/2021 07:26:42 08/31/19 22 08/30/2021 CBC W/AUT O DIFFE RENTI AL basophil % 0 % 0-5 normal Not Available [address] , [place], [address], 08/30/2021 07:26:42 08/31/19 22 08/30/2021 CBC W/AUT O DIFFE RENTI AL immature granulocyte # 0.05 x1000 /uL 0-0.05 normal Not Available [address] , [place], [address], 08/30/2021 07:26:42 08/31/19 22 08/30/2021 CBC W/AUT O DIFFE RENTI AL neutrophil # 5.18 x1000 /uL 1.50-8 .00 normal Not Available [address] [place], [place], [address], 08/30/2021 07:26:42 08/31/19 22 08/30/2021 CBC W/AUT O DIFFE RENTI AL lymphocyte # 2.70 x1000 /uL 1.20-5 .20 normal Not Available [address] [place], [place], [address], 08/30/2021 07:26:42 08/31/19 22 08/30/2021 CBC W/AUT O DIFFE RENTI AL monocyte # 0.72 x1000 /uL 0.40-0 .90 normal Not Available [address] , [place], [address], 08/30/2021 07:26:42 08/31/19 22 08/30/2021 CBC W/AUT O DIFFE RENTI AL eosinophil # 0.28 x1000 /uL 0.00-0 .50 normal Not Available [address] , [place], [address], 08/30/2021 07:26:42 08/31/19 22 08/30/2021 CBC W/AUT O DIFFE BEKAH AL basophil # 0.03 x1000 /uL 0.00-0 .30 normal Not Available [address] , [place], [address], 08/30/2021 07:26:42 08/31/19 22 08/30/2021 CBC W/AUT O DIFFE BEKAH AL NRBC automated 0.0 /100_ WBC Not Available [address] , [place], [address], 08/30/2021 07:26:42 08/31/19 22 08/30/2021 CBC W/AUT O DIFFE RENTI AL performing lab see note - [facility] R [address] [place] [address] DRIVE [facility] [address] Not Available [address] , [place], [address], 08/30/2021 07:26:42 10/29/19 22 10/30/2021 TRICH OMONA S VAGIN EARNESTINE BY REAL- TIME PCR (REFL EX TO METRO NIDAZ trichomonas vaginalis by real-time PCR (reflex to metronidazol e resistance) NEGATI VE normal Swab- 1 Cervi jesus Not Available [facility] ([facility]) [address] [place] [address], [place], [address], 10/30/2021 16:59:44 10/29/19 22 10/30/2021 BACTE RIAL VAGIN OSIS PANEL (WITH LACTO BACIL ROJAS PROFI LING) BY gardnerella vaginalis by real-time PCR NEGATI VE normal Swab- 1 Cervi jesus Not Available [facility] ([facility]) [address] [place] [address], [address], 10/30/2021 16:59:45 10/29/19 22 10/30/2021 BACTE RIAL VAGIN OSIS PANEL (WITH LACTO BACIL ROJAS PROFI LING) BY atopobium vaginae by real-time PCR NEGATI VE normal Swab- 1 Cervi jesus Not Available [facility] ([facility]) [address] [place] [address], [address], 10/30/2021 16:59:45 10/29/19 22 10/30/2021 BACTE RIAL VAGIN OSIS PANEL (WITH LACTO BACIL ROJAS PROFI LING) BY bacterial vaginosis associated bacterium 2 (bvab2) by real-time PCR NEGATI VE normal Swab- 1 Cervi jesus Not Available [facility] ([facility]) [address] [place] [address], [address], 10/30/2021 16:59:45 10/29/19 22 10/30/2021 BACTE RIAL VAGIN OSIS PANEL (WITH LACTO BACIL ROJAS PROFI LING) BY megasphaera species (type 1 and type 2) by real-time PCR NEGATI VE (TYPE1 ,TYPE2 ) normal Swab- 1 Cervi jesus Type1 :Nega tive Type2 :Nega tive. Not Available [facility] ([facility]) [address] [place] [address], [address], 10/30/2021 16:59:45 10/29/19 22 10/30/2021 BACTE RIAL VAGIN OSIS PANEL (WITH LACTO BACIL ORJAS PROFI LING) BY lactobacillu s (bv & av panel) by real time PCR SEE COMMEN T normal Swab- 1 Cervi jesus L.cri spatu s: Negat mali L.gissell senii : Negat mali L.gas seri : Negat mali L.ine rs : Negat mali. Not Available [facility] [address] [place] [address], [address], 10/30/2021 16:59:45 10/29/19 22 10/29/2021 OSMEL DA VAGIN ITIS PANEL BY REAL- TIME PCR christ albicans by real-time PCR NEGATI VE normal Swab- 1 Cervi jesus Not Available [facility] ([facility]) [address] [place] [address], [address], 10/30/2021 16:59:45 10/29/19 22 10/30/2021 OSMEL DA VAGIN ITIS PANEL BY REAL- TIME PCR christ tropicalis by real-time PCR NEGATI VE normal Swab- 1 Cervi jeuss Not Available [facility] ([facility]) [address] [place] [address], [address], 10/30/2021 16:59:45 10/29/19 22 10/30/2021 OSMEL DA VAGIN ITIS PANEL BY REAL- TIME PCR christ parapsilosis by real-time PCR NEGATI VE normal Swab- 1 Cervi jesus Not Available [facility] ([facility]) [address] [place] [address], [address], 10/30/2021 16:59:45 10/29/19 22 10/30/2021 OSMEL DA VAGIN ITIS PANEL BY REAL- TIME PCR christ glabrata by real-time PCR NEGATI VE normal Swab- 1 Cervi jesus Not Available [facility] ([facility]) [address] [place] [address], [address], 10/30/2021 16:59:45 08/05/19 22 07/01/2021 US, obste tric, follo w-up No observ ation record ed. BARCODE [place] [facility]mic Assistant [address] [facility] , [place], [address], 08/04/2021 13:42:56 08/08/19 US, obste tric, bioph ysica l profi le No observ ation record ed. [email or web address] Certified Ophthalmic Assistant [address] [place] [address] , [place], [address], 08/12/2021 09:46:17 08/08/19 22 08/07/2021 non-s tress test No observ ation record ed. [email or web address] Not Available 2021 16:55:27 08/12/19 22 08/11/2021 non-s tress test No observ ation record ed. [email or web address] [place] [facility] Ophthalmic Assistant [address] [place] [address] , [place], [address], 08/11/2021 11:29:07 08/12/19 US, obste tric, bioph ysica l profi le No observ ation record ed. [email or web address] [place] [facility]mic Assistant [address] [place] [address] , [place], [address], 08/11/2021 13:31:57 08/12/19 non-s tress test No observ ation record ed. [email or web address] [place] [facility] Ophthalmic Assistant [address] [place] [address] , [place], [address], 08/11/2021 14:02:43 08/13/19 22 08/12/2021 non-s tress test No observ ation record ed. [email or web address] [place] [facility] Ophthalmic Assistant [address] [place] [address] , [place], [address], 08/12/2021 09:46:22 08/13/19 22 08/07/2021 US, obste tric, follo w-up No observ ation record ed. BARCODE Not Available 2021 14:56:31 08/15/19 22 08/17/2021 non-s tress test No observ ation record ed. [email or web address] [place] [facility] Assistant [address] [place] [address] , [place], [address], 08/17/2021 10:14:25 08/15/19 22 08/11/2021 US, obste tric, bioph ysica l profi le No observ ation record ed. BARCODE [place] [facility]hthalmic Assistant [address] [place] [address] , [place], [address], 08/14/2021 16:04:34 08/16/19 US, obste tric, bioph ysica l profi le No observ ation record ed. [email or web address] [place] [facility]mic Assistant [address] [place] [address] , [place], [address], 08/17/2021 10:13:55 08/19/19 22 08/18/2021 US, obste tric, bioph ysica l profi le No observ ation record ed. [facility] [address] [place] [address] , [place], [address], 08/18/2021 22:39:29 08/19/19 22 08/18/2021 non-s tress test No observ ation record ed. [facility] Assistant [address] [place] [address] , [place], [address], 08/18/2021 22:39:25 08/19/19 22 08/18/2021 non-s tress test No observ ation record ed. [place] [facility]mic Assistant [address] [place] [address] , [place], [address], 08/18/2021 12:36:20 08/19/19 22 08/15/2021 non-s tress test No observ ation record ed. [email or web address] Not Available 2021 14:55:38 08/19/19 22 08/15/2021 US, obste tric, bioph ysica l profi le No observ ation record ed. BARCODE [place] [facility]mic Assistant [address] [place] [address] , [place], [address], 08/18/2021 16:28:40 08/22/19 22 08/18/2021 US, obste tric, bioph ysica l profi le No observ ation record ed. BARCODE [place] [facility] Assistant [address] [place] [address] , [place], [address], 08/21/2021 11:00:48 08/22/19 22 08/22/2021 non-s tress test No observ ation record ed. [email or web address] [place] [facility] [address] [place] [address] , [place], [address], 08/22/2021 19:33:58 08/22/19 US, obste tric, bioph ysica l profi le No observ ation record ed. [email or web address] [place] [address] Certified Ophthalmic Assistant [address] [place] [address] , [place], [address], 08/22/2021 19:33:53 08/23/19 22 08/26/2021 non-s tress test No observ ation record ed. [email or web address] [place] [facility]mic Assistant [address] [place] [address] , [place], [address], 09/02/2021 23:51:38 08/26/19 22 08/21/2021 non-s tress test No observ ation record ed. [email or web address] Not Available 2021 10:35:48 08/26/19 non-s tress test No observ ation record ed. [email or web address] Not Available 2021 17:03:39 09/19/19 22 08/25/2021 US, obste tric, bioph ysica l profi le + non-s tress test No observ ation record ed. BARCODE Not Available 2021 08:50:58 09/20/19 22 08/21/2021 US, obste tric, bioph ysica l profi le No observ ation record ed. BARCODE [place] [facility]mic Assistant [address] [facility] , [place], [address], 09/19/2021 14:12:57 10/14/19 22 08/21/2021 US, obste tric, bioph ysica l profi le No observ ation record ed. BARCODE [place] [facility]mic [facility] [address] [facility] , [place], [address], 10/13/2021 08:16:49 Result Notes None recorded. Problems Name Problem SNOMED Code Status Onset Date Resolution Date Notes Provider Name and Address Organization Details Recorded Time Mixed anxiety and depressi ve disorder 450412665 Active Alyson schilling, [facility] 1 15:44:37 History of substanc e abuse 933598760 Active [x] Discusse d + THC 9 heroin, methamph etamine Suboxone treatmen t x 2 years. lost custody first 4 children due to substanc e abuse. subutex 12 mg as of 02/25 Ade schilling, [place] - [facility] 3 22:34:56 Opioid dependen ce, on agonist therapy 0462511135 105 Active suboxone w/ Brightvi ew. weaning. On 12 mg/day at 02/25. Advised against attempte d complete disconti nuation 07/01: 16 mg/day, denies non rx'd use Ade schilling, [place] - [facility] 3 22:34:56 Recurren t miscarri age 142923099 Active x 2 2020 Ade schilling, [facility] 3 22:34:55 Cigarett e smoker 05367038 Active / PPD - urged to quit Ade Roblero null, [place] - [facility] 3 22:34:55 High risk pregnanc y 89670965 Completed r/T drug abuse history, morbid obesity, early SAB x2 and 1 ectopic with last year. prior section, prior multiple gestatio n, prior macrosom ia. GORDO Lynch - [facility] 3 22:34:56 Supervis ion of high risk pregnanc y with history of previous section done 0249702502 9106 Completed 09/04/2021 primary c/s 2012 SMO for macrosom ia after having had 3 AGA vaginal deliveri es includin g twins, [ ] Options RCS versus EYAD AC discusse d 02/25 Might consider EYAD AC at if not LGA. Discuss at MFM visit 07/01 -DECLINE S Tolac, desires RCS here, rec 39 wk; [x]surg referral sent 07/01 [-- ] Sign papers 28 weeks-de clined @ 28 wks-unsu re/DECLI CHANNING 07/01 Removal Reason: delivere d Infusion Nurse [facility] [address], [place], [address], [place] - [facility] 2 11:23:40 Supervis ion of high risk pregnanc y with history of previous section done [id number] 9106 Completed primary c/s 2012 SMO for macrosom ia after having had 3 AGA vaginal deliveri es includin g twins, [ ] Options RCS versus EYAD AC discusse d 02/25 Might consider EYAD AC at if not LGA. Discuss at [facility] visit 07/01 -DECLINE S Tolac, desires RCS here, rec 39 wk; [x]surg referral sent 07/01 [-- ] Sign papers 28 weeks-de clined @ 28 wks-unsu re/DECLI CHANNING 07/01 GORDO Lynch - [facility] 3 22:34:56 Opioid dependen ce, on agonist therapy 2792727718 105 Completed suboxone w/ Brightvi ew. weaning. On 12 mg/day at 02/25. Advised against attempte d complete disconti nuation 07/01: 16 mg/day, denies non rx'd use GORDO Lynch - [facility] 3 22:34:56 Cigarett e smoker 46280796 Completed 05/25 PPD - urged to quit GORDO Lynch - [facility] 3 22:34:55 History of substanc e abuse 967882108 Completed [x] Discusse d + THC 9 heroin, methamph etamine Suboxone treatmen t x 2 years. lost custody first 4 children due to substanc e abuse. subutex 12 mg as of 02/25 Ade schilling, [place] - [facility] 3 22:34:56 Antenata l screenin g Completed [x] CF-DECLI CHANNING [x] M21- drawn 03/27- negative [x] AFP-Nega tive Ade Roblero null, [place] - [facility] 3 22:34:55 Recurren t miscarri age 653518953 Completed x 2 2020 Ade Dawkinsaves null, [place] - [facility] 3 22:34:55 Past pregnanc y history of ectopic pregnanc y 333657030 Completed 10/09/20 PUL/ques tion ectopic treated with methotre xate. Ade Dawkinsaves [place], [place] - [facility] 3 22:34:55 Active immuniza tion Completed [x] Flu-03/27 [x] COVID declined 02/25 [x] tdap 07/01/21 Ade Dawkinsaves null, [place] - [facility] 3 22:34:56 Rubella non-immu ne 651376152 Completed 09/04/2021 [ ] Vaccine PP Removal Reason: deliverd Infusion Nurse [facility] [address], [place], [address], [place] - [facility] 2 11:23:32 Rubella non-immu ne 344373019 Completed [ ] Vaccine PP Ade Dawkinsaves [place], [place] - [facility] 3 22:34:56 Chronic hepatiti s C 571789440 Completed Positive antibody screen, this is initial diagnosi s at OB history, had not been picked up with prior testing at addictio n clinics [x] Needs Quant/RN A and CMP-add at 16-week visit AST/ALT 38 @ 17 wksk [x] CMP @ 28 wks-draw n 06/11 Hep C Quant 61715, Genotype 2B [ ] Needs GI referral [facility] PP Ade Roblero [place], [place] - [facility] 3 22:34:56 Counseli ng for steriliz ation done 1293903502 9103 Completed [ ] Sign papers 28 weeks-de clined 06/11/21- unsure Ade Roblero null, [place] - [facility] 3 22:34:56 Chronic hepatiti s C 111588906 Active Positive antibody screen, this is initial diagnosi s at OB history, had not been picked up with prior testing at addictio n clinics [x] Needs Quant/RN A and CMP-add at 16-week visit AST/ALT 28/38 @ 17 wksk [x] CMP @ 28 wks-draw n 06/11 Hep C Quant 96826, Genotype 2B [ ] Needs GI referral [facility] PP Ade Roblero null, [place] - [facility] 3 22:34:56 Breech presenta tion 7426321 Completed Breech noted at 32 weeks. Keya Matt MD [address], [place], [address], [place] - [facility] 2 10:16:43 Obesity 857749695 Active 2016 Shameka Quiros null, [place] - [facility] 7 09:13:37 Chlamydi al infectio n 008961035 Completed 201607/30/2016 Shameka Quiros [place] - [facility] 7 09:13:47 Morbid obesity 355202839 Active 2020 Heydi Denis MD [address], [place], [address], [place] - [facility] 1 20:06:14 Surveill ance of subcutan eous contrace ptive implant Completed 202001/23/2021 Alyson Mckinney null, [place] - [facility] 1 09:21:42 Immuniza tion due 791103523 Completed 202001/30/2021 Alyson Mckinney null, [place] - [facility] 1 08:30:50 Pregnanc y 13675328 Completed 202002/11/2021 Rhoda Nicole APRN [address], [place], [address], [place] - [facility] 1 09:59:42 Maternal obesity complica ting pregnanc y, childbir th and the puerperi um, antepart 1690008554 07 Completed 2020 BMI >60 A1c: 5.6 [x] early A1c 16 weeks-86 [x] MFM consult 20 weeks for anatomy scan and to discuss prior C-sectio n and delivery options Adearabella schilling, [place] - [facility] 3 22:34:55 Maternal obesity complica ting pregnanc y, childbir th and the puerperi , antepart 5191633135 07 Completed 202009/04/2021 BMI >60 A1c: 5.6 [x] early A1c 16 weeks-86 [x] MFM consult 20 weeks for anatomy scan and to discuss prior C-sectio n and delivery options Removal Reason: delivere d Infusion Nurse [facility] [address], [place], [address], [place] [facility] 2 11:23:11 Past pregnanc y history of delivery of macrosom al infant 8441992295 9102 Completed 202004/07/13 - primary c/s (10 lb 6 oz)-sche duled without labor trial. Not diagnose d as diabetic then Ade Osbaldo null, [place] - [facility] 3 22:34:55 Past pregnanc y history of delivery of macrosom al infant 9434689193 9102 Completed 202009/04/2021 04/07/13 - primary c/s (10 lb 6 oz)-sche duled without labor trial. Not diagnose d as diabetic then Removal Reason: delivere d Infusion Nurse [facility] [address], [place], [address], [place] - [facility] 2 11:24:18 Excessiv e caffeine intake 8449062219 68337 Completed 2020 Drinking 8oz coffee & 6 Mt. Dews/day - Ade Roblero null, [place] - [facility] 3 22:34:55 Excessiv e caffeine intake 1528529892 01073 Active 2020 Drinking 8oz coffee & 6 Mt. Dews/day - Ade Roblero null, [place] - [facility] 3 22:34:55 Nasal congesti on 41455216 Active 2021 Ade Osbaldo null, [place] - [facility] 3 22:34:56 Nasal congesti on 48416658 Completed 2021 Ade Osbaldo [place], [place] - [facility] 3 22:34:56 Cholelit hiasis without obstruct ion 93866421 Completed 2021 Ade Osbaldo [place], [place] - [facility] 3 22:34:55 Large for gestatio n age fetus Completed 202109/04/2021 Removal Reason: delivere d Infusion Nurse [facility] [address], [place], [address], [place] - [facility] 2 11:22:56 Large for gestatio n age fetus Completed 2021 Ade Osbaldo null, [place] - [facility] 3 22:34:56 Maternal tobacco abuse 366145483 Completed 2021 Ade Osbaldo [place], [place] - [facility] 3 22:34:56 Maternal tobacco abuse 893063947 Active 2021 Ade Osbaldo [place] - [facility] 3 22:34:56 Polyhydr amnios 88308525 Completed 2021 26.1 cm Ade Osbaldo [place], [place] - [facility] 3 22:34:55 Polyhydr amnios 16463786 Completed 202109/04/2021 26.1 cm Removal Reason: delivere d Infusion Nurse [facility] [address], [place], [address], [place] - [facility] 2 11:23:23 Problem Notes Documentation Provider Name and Address Organization Details Recorded Time Pathology Note : [address] [address] PATIENT NAME: ADE ALVARES UNIT NO.: [id number] ATTENDING DOC: Heydi Fisher MD (Shower) ROOM NO.: [id number] ADMISSION DATE: 08/28/21 LOCATION: .OB BIRTHDATE: [birth year] ACCT NUM: [id number] DICTATED BY: Tigre Contreras MD ___ _ TEXT [facility] Specimen Number: [id number] [employer] Accession Number: [id number] Collection Date : 2021-08-28 Received Date : 2021-08-29 Reported Date : 2021-09-01 REPORT TITLE PATHOLOGY REPORT FINAL DIAGNOSIS PLACENTA, 663 GRAMS: -THIRD TRIMESTER PLACENTA, NEGATIVE FOR CHORIOAMNIONITIS OR VILLITIS. -THREE-VESSEL UMBILICAL CORD, NO PATHOLOGIC DIAGNOSIS. Pathologist Signature Tigre Contreras M.D., Pathologist Electronic Signature : 2021-09-01 17:38 CLINICAL INFORMATION Brief Clinical History: None provided. Preoperative Diagnosis: 39 week, polyhydramnios. Postoperative Diagnosis: Same. Symptoms/Radiologic Findings: Procedure: SPECIMENS: Placenta MICROSCOPIC EXAMINATION Cross-section shows three-vessel umbilical cord without thrombosis or inflammation. Sections of placental cake show third trimester chorionic villi without inflammation. There is some degenerated decidual tissue present on the maternal surface with calcification. GROSS DESCRIPTION Received in formalin, labeled Ade Alvares and placenta, is a placental disc with attached umbilical cord and membranes. General: True weight: 663 grams. Size: 17.7 x 16.5 x 3.0 cm. Complete: The disc appears to be complete. Abnormal configurations: None. ADE ALVARES [id number] PATHOLOGY REPORT Continu Cord: Site of insertion: Paracentric, 4.8 cm from the margin. Length: 31.0 cm with a diameter ranging from 1.5 cm to 2.0 cm. Number of vessels: Three. Abnormalities: None. Membranes: Amniotic sac rupture: The amniotic rupture site cannot be determined. Membrane insertion: Membrane insertion appears to be 100% marginal. Color: Salgado-pink to purple. Translucency: Yes. Abnormalities: The membranes are slightly torn and disrupted with a minimal amount of attached red-brown blood clot. Disc(s): Color of surface: Lang-blue to purple. Maternal floor: The maternal floor appears to be complete with focally disrupted cotyledons. The cotyledons range in thickness from 1.5 cm to 4.0 cm. The cut surface consists of spongy, red-brown parenchyma. There are two salgado parenchymal lesions at the maternal surface averaging 0.5 cm in greatest dimension. The lesions occupy less than 10% of the parenchyma. No additional obvious parenchymal The specimen is serially sectioned and security systems sales representative sections are submitted as labeled: Block 1 - umbilical cord; block 2 - membrane roll; blocks 3 and 4 - full-thickness parenchyma to include one parenchymal lesion, bisected; block 5 - full-thickness parenchyma; block 6 - second parenchymal lesion. ORA Dietz.[facility] CPT CODES 26644 COPY TO Tigre Contreras PERFORMING SITE [employer]. ASSUMES NO RESPONSIBILITY FOR THE ACCURACY OF CPT CODES PROVIDED WHICH ARE FOR INFORMATIONAL PURPOSES ONLY. CPT CODES ARE PAYOR SPECIFIC AND CPT CODING IS THE SOLE RESPONSIBILITY OF THE BILLING ENTITY. THE FOLLOWING TESTS (CD117,CMV,EBV YAAKOV,H.PYLORI, HEPATITIS B CORE AB, HEPATITIS B SURFACE AB, HHV-8, HSV 1 / 2, HER1, KAPPA YAAKOV, LAMBDA YAAKOV,PNEUMOCYSTIS,AND PROCOLLAGEN RUO) WERE DEVELOPED AND PERFORMANCE CHARACTERISTICS HAVE BEEN DETERMINED BY [facility]. THEY HAVE NOT BEEN CLEARED OR APPROVED BY THE [place] FOOD AND DRUG ADMINISTRATION. THE FDA HAS DETERMINED THAT SUCH CLEARANCE OR APPROVAL IS NOT NECESSARY. PERFORMANCE CHARACTERISTICS REFER TO THE ANALYTICAL PERFORMANCE OF THE TESTS. THE TECHNICAL COMPONENT AND GROSS DESCRIPTION IS PERFORMED AT [facility] ADE ALVARES [id number] PATHOLOGY REPORT Continu [address] [facility], [place] [address]. THE PROFESSIONAL COMPONENT PERFORMED AT [place] [address] [address] [facility], [address], [facility] [address] at 1738 Signature on File Tigre Contreras MD Dictated: 08/28/21 0822 Transcribed: Transcribed by: YUMIKO ADAMSON'ed Logic: Attending Provider: ZULAY BEGUM Referring Provider: ZULAY BEGUM Consulting Provider: JEREMIE CARRILLO Admitting Provider: ZULAY schilling [place] - [facility] 09/09/2021 08:01:30 Procedures Surgical History Date Name Laterality Status Provider Name and Address Organization Details Recorded Time 08/29/19 delivery completed Alyson Mckinney [place] - [facility] 08/28/2021 12:29:05 08/29/19 22 delivery completed Infusion Nurse [facility] [address] [place] [address], [place], [address], [place] - [facility] 09/04/2021 11:22:13 08/26/19 OB Ultrasound Summary completed Allie Fajardo [place] - [facility] 08/25/2021 16:52:48 08/22/19 OB Ultrasound Summary completed Edgard Hood [place] - [facility] 08/21/2021 14:54:08 08/19/19 22 OB Ultrasound Summary completed Edgard [place] [facility] 08/18/2021 11:32:08 08/16/19 22 OB Ultrasound Summary completed Edgard Hood [place] [facility] 08/15/2021 11:09:08 08/12/19 22 OB Ultrasound Summary completed Edgard Hood [place] [facility] 08/11/2021 10:19:15 08/08/19 22 OB Ultrasound Summary completed Edgard Hood [place] - [facility] 08/07/2021 16:16:49 07/01/19 22 OB Ultrasound Summary completed Allie Fajardo [place] [facility] 07/01/2021 15:45:59 02/26/20 OB Ultrasound Summary completed Allie Fajardo [place] [facility] 02/25/2021 17:13:57 02/26/20 Date of Last Pap Smear completed Alyson [place]ckinney [place] - [facility] 03/05/2021 09:28:32 01/24/20 21 OB Ultrasound Summary completed Edgard Hood [place] - [facility] 01/23/2021 09:33:42 10/17/19 21 Nexplanon Removal completed Heydi Denis MD [address], [place], [address], [place] - [facility] 10/16/2020 22:14:44 10/17/19 21 Contraceptive Implant Removal completed Alyson [place]ckinney [place] - [facility] 01/23/2021 08:23:37 06/21/19 14 Contraceptive Implant Insertion completed Alyson [place]ckinney [place] - [facility] 09/30/2020 12:02:57 04/07/20 13 delivery completed Shameka Quiros [place] - [facility] 07/30/2016 09:21:40 Imaging Results None recorded. Procedure Notes None recorded. Medical Equipment None Reported. Allergies No known drug allergies Medications Name Sig Start Date Stop Date Status Note LastModified by Organization Details LastModified Time Prometriu m 200 mg capsule take 1 capsule by oral route hs for 30 days 12/08 completed Prometri um Oral capsule 200 mg;Recor ded Status: Recorded on: 08/18/19 13 9:59AM;D iscontin ued Status: Disconti nued on: 12/09/19 13 12:18PM; User: travon; Est. Completi on: 10/17/19 13;Print ed: 08/18/19 13 Not Available Not Available Not Available Cleocin HCl 300 mg capsule take 1 capsule by oral route every 8 hours for 14 days 01/30 completed Cleocin Oral Capsule 300 mg;Recor ded Status: Recorded on: 10/25/19 10 10:46PM; Disconti nued Status: Disconti nued on: 01/31/20 10 1:51PM;U ser: showcarmital; Est. Completi on: 10/31/19 10;Indic ation: Staphylo coccus Aureus Skin and Skin Structur e Infectio n - (12.6869 06) Not Available Not Available Not Available amoxicill in 500 mg capsule 09/30 completed Not Available Not Available Not Available Mirena 21 mcg/24 hr (up to 8 years) 52 mg intrauter ine device as directed 05/27 completed Mirena Intraute rine IUD 20 mcg/24 hr;Recor ded Status: Recorded on: 04/03/20 10 9:23AM;D iscontin ued Status: Disconti nued on: 05/27/19 11 3:46PM;U ser: burtont; Printed: 04/11/20 10 Not Available Not Available Not Available terconazo le 0.4 % vaginal cream Insert 1 applicat orful every day by vaginal route as directed for 7 days. active Not Available Not Available No t Available venlafaxi ne ER 37.5 mg capsule,e xtended release 24 hr 09/30 completed Not Available Not Available Not Available acetamino phen 325 mg tablet 09/30 completed Not Available Not Available Not Available venlafaxi ne ER 75 mg capsule,e xtended release 24 hr 1 tablet twice daily 02/11 completed Not Available Not Available Not Available ibuprofen 800 mg tablet 09/30 completed Not Available Not Available Not Available citalopra m 10 mg tablet take 1 tablet (10 mg) by oral route once daily for 30 days 06/28 completed citalopr am oral tablet 10 mg;Presc ribe Status: Prescrib ed on: 06/07/19 14 4:05PM;D iscontin ued Status: Disconti nued on: 06/28/19 14 3:48PM;U ser: [email or web address] ;Est. Completi on: 08/07/19 14;Indic ation: Postpart um Depressi on - (648.44) ;Pharmac yVerifie d: 06/07/19 14 4:05PM Not Available Not Available Not Available Keflex 500 mg capsule take 1 capsule (500 mg) by oral route every 6 hours for 10 days 01/30 completed Keflex Oral Capsule 500 mg;Recor ded Status: Recorded on: 10/12/19 10 2:21PM;D iscontin ued Status: Disconti nued on: 01/31/20 10 1:51PM;U ser: meeses;E st. Completi on: 10/22/19 10;Indic ation: Skin and Skin Structur e Infectio n - (12.6845 );Prin jaky: 10/12/19 10 Not Available Not Available Not Available promethaz ine 12.5 mg tablet Take 1 tablet every 4-6 hours by oral route as needed. 06/11 completed Not Available Not Available Not Available Medrol (Rolando) 4 mg tablets in a dose pack take as directed for 6 days 05/27 completed Medrol (Rolando) Oral Tablets, Dose Pack 4 mg;Recor ded Status: Recorded on: 04/29/20 10 4:52PM;D iscontin ued Status: Disconti nued on: 05/27/19 11 3:46PM;U ser: Arlin lang. Completi on: 05/05/20 10 Not Available Not Available Not Available permethri n 5 % topical cream apply (thoroug hly massage into skin from head to soles of feet) by topical route once leave on for 8-14 hours and then remove by thorough washing for 30 days 09/09 completed permethr in Topical Cream 5 %;Record ed Status: Recorded on: 08/25/19 12 10:22AM; Disconti nued Status: Disconti nued on: 09/10/19 12 10:06AM; User: Florentin Lewis on: 10/24/19 12;Print ed: 08/25/19 12 Not Available Not Available Not Available metronida zole 500 mg tablet take 1 tablet (500 mg) by oral route every 12 hours for 7 days 10/03 completed metronid azole Oral tablet 500 mg;Presc ribe Status: Prescrib ed on: 09/15/19 13 12:00AM; Disconti nued Status: Disconti nued on: 10/04/19 13 10:56AM; User: Yamile lang. Completi on: 09/22/19 13;Indic ation: Bacteria l Vaginosi s - (10.6169 );Phar macyVeri fied: 09/15/19 13 10:33AM Not Available Not Available Not Available methotrex ate sodium 25 mg/mL injection solution 50mg/m x 1 IM at [facility] 05/19/ 2021 05/26 /2021 completed Not Available Not Available Not Available aspirin 81 mg tablet,de layed release Take 1 tablet every day by oral route for 30 days. 10/28 completed Not Available Not Available Not Available Zantac 150 mg tablet take 1 tablet (150 mg) by oral route 2 times per day for 30 days 04/11 completed Zantac Oral Tablet 150 mg;Recor ded Status: Recorded on: 01/03/20 10 10:18PM; Disconti nued Status: Disconti nued on: 04/11/20 10 11:02AM; User: showerl; Est. Completi on: 05/02/20 10;Indic ation: Gastroes ophageal Reflux - (.5308 10);Prin jaky: 01/03/20 10 Not Available Not Available Not Available Vitamin tablet take 1 tablet by oral route once daily for 30 days 04/18 completed Vitamin Oral tablet;P rescribe Status: Prescrib ed on: 11/02/19 13 8:48AM;D iscontin ued Status: Disconti nued on: 04/18/20 13 4:28PM;U ser: hinesm;E st. Completi on: 03/31/20 13;Indic ation: Pregnanc y - (18.V222 00);Phar macAzaeleri fied: 11/02/19 13 8:48AM Not Available Not Available Not Available Bactroban 2 % topical cream apply a small amount to the affected area by topical route 3 times per day 02/13 completed Bactroba n Topical Cream 2 %;Record ed Status: Recorded on: 10/25/19 10 10:47PM; Disconti nued Status: Disconti nued on: 02/14/20 10 2:32PM;U ser: showerl; Indicati on: Staph Aureus Traumati c Skin Lesion Infectio n - (17.9583 03) Not Available Not Available Not Available amoxicill in 875 mg tablet take 1 tablet (875 mg) by oral route 2 times a day for 10 days 05/27 completed amoxicil catalina Oral Tablet 875 mg;Recor ded Status: Recorded on: 04/29/20 10 4:52PM;D iscontin ued Status: Disconti nued on: 05/27/19 11 3:46PM;U ser: gored;Es t. Completi on: 05/09/20 10 Not Available Not Available Not Available citalopra m 20 mg tablet take 1 tablet by oral route daily for 30 days 09/13 completed citalopr am oral tablet 20 mg;Presc ribe Status: Prescrib ed on: 06/15/19 15 11:32AM; User: sofi;Es t. Completi on: 09/14/19 15;Pharm acyVerif ied: 06/15/19 15 11:32AM Not Available Not Available Not Available Metrogel Vaginal 0.75 % (37.5 mg/5 gram) insert 1 applicat orful (37.5 mg) by vaginal route once daily at bedtime for 5 days 06/15 completed Metrogel Vaginal Gel 0.75 %;Record ed Status: Recorded on: 06/11/19 14 4:46PM;D iscontin ued Status: Disconti nued on: 06/15/19 15 10:51AM; User: lily Not Available Not Available Not Available famotidin e 20 mg tablet Take 1 tablet twice a day by oral route as directed for 30 days. 10/28 completed Not Available Not Available Not Available Zoloft 50 mg tablet take 1 tablet (50 mg) by oral route daily for 30 days 11/14 completed Zoloft Oral Tablet 50 mg;Recor ded Status: Recorded on: 08/05/19 11 9:17AM;D iscontin ued Status: Disconti nued on: 11/15/19 11 4:16PM;U ser: rankinw; Est. Completi on: 11/03/19 11 Not Available Not Available Not Available Micronor (28) 0.35 mg tablet take 1 tablet by oral route once daily for 28 days 06/15 completed Micronor (28) Oral tablet 0.35 mg;Presc ribe Status: Prescrib ed on: 04/18/20 13 4:34PM;D iscontin ued Status: Disconti nued on: 06/15/19 15 10:51AM; User: josr; Est. Completi on: 06/13/19 14;Indic ation: Pregnanc y Contrace ption - (18.V259 00);Mable Melchor fied: 04/18/20 13 4:34PM Not Available Not Available Not Available ferrous sulfate 325 mg (65 mg iron) tablet take 1 tablet by oral route 2 times a day for 30 days 06/07 completed ferrous sulfate Oral tablet 325 mg (65 mg iron);Pr escribe Status: Prescrib ed on: 03/06/20 13 12:40PM; Disconti nued Status: Disconti nued on: 06/07/19 14 2:58PM;U ser: travon; Est. Completi on: 05/05/20 13;Indic ation: Iron Deficien cy Anemia - (.2809 00);Mable Melchor fied: 03/06/20 13 12:40PM Not Available Not Available Not Available promethaz ine 25 mg tablet 1/2 to 1 tablet every 6-8 hrs PRN 06/11 completed Not Available Not Available Not Available docusate sodium 100 mg capsule 10/28 completed Not Available Not Available Not Available Cleocin 2 % vaginal cream insert 1 applicat orful (100 mg) by vaginal route once daily at bedtime for 1 day 06/11 completed Cleocin vaginal cream 2 %;Prescr pardeep Status: Prescrib ed on: 06/07/19 14 4:07PM;D iscontin ued Status: Disconti nued on: 06/11/19 14 4:46PM;U ser: lily ;Est. Completi on: 06/08/19 14;Indic ation: Bacteria l Vaginosi s - (10.6169 );Mable Melchor fied: 06/07/19 14 4:07PM Not Available Not Available Not Available Tylenol-C odeine #3 300 mg-30 mg tablet take 1 tablet by oral route every 6 hours as needed 09/09 completed Tylenol- Codeine #3 Oral Tablet 300-30 mg;Recor ded Status: Recorded on: 09/04/19 12 11:28AM; Disconti nued Status: Disconti nued on: 09/10/19 12 10:06AM; User: lefty; Jovannati on: Headache - (784.0) Not Available Not Available Not Available ibuprofen 600 mg tablet 10/28 completed Not Available Not Available Not Available fluoxetin e 20 mg capsule take 1 capsule (20 mg) by oral route once daily in the morning for 30 days 06/04 completed fluoxeti ne Oral Capsule 20 mg;Recor ded Status: Recorded on: 11/15/19 11 4:36PM;D iscontin ued Status: Disconti nued on: 06/04/19 12 2:00PM;U ser: youngk;E st. Completi on: 02/13/20 11;Indic ation: Depressi on - () Not Available Not Available Not Available fluticaso ne propionat e 50 mcg/actua tion nasal spray,larry pension Chrisman 1 spray every day by intranas al route. 10/28 completed Not Available Not Available Not Available Celexa 40 mg tablet take 1 tablet (40 mg) by oral route once daily for 30 days 08/12 completed Celexa Oral Tablet 40 mg;Recor ded Status: Recorded on: 09/10/19 12 10:48AM; Disconti nued Status: Disconti nued on: 08/13/19 13 10:45AM; User: tra; Est. Completi on: 12/09/19 12;Print ed: 09/10/19 12 Not Available Not Available Not Available Mariah (28) 3 mg-0.03 mg tablet take 1 tablet by oral route once daily 07/29 completed Mariah 28 Oral Tablet 3-0.03 mg;Recor ded Status: Recorded on: 11/21/19 09 4:21PM;D iscontin ued Status: Disconti nued on: 07/30/19 10 3:46PM;U ser: ana ;Est. Completi on: 11/20/19 10;Indic ation: Pregnanc y Contrace ption - (59 00);Prin jaky: 11/21/19 09 Not Available Not Available Not Available Gynazole- 1 2 % vaginal cream,ext ended release 1 applicat orful x 1 03/07 completed Gynazole -1 Vaginal Cream, Sustaine d Release 2 %;Record ed Status: Recorded on: 02/25/20 08 10:04PM; Disconti nued Status: Disconti nued on: 03/07/20 08 2:01PM;U ser: meeses Not Available Not Available Not Available Ortho Tri-Cycle n (28) 0.18 mg(7)/0.2 15mg(7)/0 .25 mg(7)-0.0 35 mg tablet take 1 tablet by oral route once daily 11/21 completed Ortho Tri-Cycl en (28) Oral Tablet .18/.215 /.25-35 mg-mcg;R ecorded Status: Recorded on: 11/21/19 09 3:30PM;D iscontin ued Status: Disconti nued on: 11/22/19 09 6:51AM;U ser: cooperj; Indicati on: Pregnanc y Contrace ption - (18.V259 00) Not Available Not Available Not Available progester one micronize d 100 mg capsule Take 1 capsule every day by oral route for 30 days. 10/16 completed Not Available Not Available Not Available hydroxyzi ne pamoate 25 mg capsule 09/30 completed Not Available Not Available Not Available Bactrim DS 800 mg-160 mg tablet take 1 tablet by oral route every 12 hours for 14 days 01/30 completed Bactrim DS Oral Tablet 800-160 mg;Recor ded Status: Recorded on: 10/25/19 10 10:46PM; Disconti nued Status: Disconti nued on: 01/31/20 10 1:51PM;U ser: showerl; Est. Completi on: 10/31/19 10 Not Available Not Available Not Available Vitamin 27 mg iron-0.8 mg tablet Take 1 tablet every day by oral route for 30 days. 10/28 completed Not Available Not Available Not Available NuvaRing 0.12 mg-0.015 mg/24 hr vaginal insert one ring per vagina; replalce q 28 days 06/04 completed NuvaRing Vaginal 0.12-0.0 15 mg/24 hr;Recor ded Status: Recorded on: 11/15/19 11 4:36PM;D iscontin ued Status: Disconti nued on: 06/04/19 12 2:00PM;U ser: youngk Not Available Not Available Not Available Depo-Prov era 150 mg/mL intramusc ular syringe inject 1 millilit er (150 mg/mL) by intramus cular route every 3 months 11/14 completed Depo-Pro vera Intramus cular Syringe 150 mg/mL;Re corded Status: Recorded on: 10/01/19 11 11:23AM; Disconti nued Status: Disconti nued on: 11/15/19 11 4:39PM;U ser: ana ;EstBrett Completi on: 09/29/19 12;Print ed: 10/01/19 11 Not Available Not Available Not Available Zithromax 500 mg tablet take 2 tablets (1,000 mg) by oral route once 09/03 completed Zithroma x Oral Tablet 500 mg;Recor ded Status: Recorded on: 06/08/19 12 1:40PM;D iscontin ued Status: Disconti nued on: 09/04/19 12 10:39AM; User: magdalena Diane on: Chlamydi a Cervicit is - ();Prin jaky: 06/08/19 12 Not Available Not Available Not Available Sprintec (28) 0.25 mg-0.035 mg tablet Take 1 tablet every day by oral route. 01/23 completed Not Available Not Available Not Available buprenorp nancy 2 mg-naloxo ne 0.5 mg sublingua l tablet 10/28 completed Not Available Not Available Not Available buprenorp nancy 8 mg-naloxo ne 2 mg sublingua l tablet active Not Available Not Available Not Available buprenorp nancy HCl 8 mg sublingua l tablet 1.5table ts daily (12MG) 10/28 completed Not Available Not Available Not Available Allergy Relief (loratadi ne) 10 mg tablet Take 1 tablet every day by oral route for 30 days. 10/28 completed Not Available Not Available Not Available duloxetin e 20 mg capsule,d elayed release Take 1 capsule every day by oral route. 05/26 completed Not Available Not Available Not Available duloxetin e 30 mg capsule,d elayed release Take 1 capsule every day by oral route for 30 days. active Not Available Not Available No t Available Repliva 11/12 151 mg-200 mg-1 mg tablet 1 po qD 03/07 completed Repliva 11/12 Oral Tablet 151-200- 1 mg;Recor ded Status: Recorded on: 02/25/20 08 10:04PM; Disconti nued Status: Disconti nued on: 03/07/20 08 2:01PM;U ser: granth Not Available Not Available Not Available 27 mg iron-0.8 mg tablet take 1 tablet by oral route once daily 11/01 completed Oral tablet 27-0.8 mg;Recor ded Status: Recorded on: 08/13/19 13 11:15AM; Disconti nued Status: Disconti nued on: 11/02/19 13 8:47AM;U ser: coxe;Yenny nted: 08/13/19 13 Not Available Not Available Not Available Suboxone 8mg daily 09/30 completed Not Available Not Available Not Available C-Phen DM 4 mg-12.5 mg-15 mg/5 mL oral syrup take 5 millilit er (4-12.5- 15 mg/5 mL) by oral route 4 times a day for 7 days 05/27 completed C-Phen DM Oral Syrup 4-12.5-1 5 mg/5 mL;Recor ded Status: Recorded on: 04/29/20 10 4:52PM;D iscontin ued Status: Disconti nued on: 05/27/19 11 3:46PM;U ser: gored;Es t. Completi on: 05/06/20 10 Not Available Not Available Not Available Rx 27 mg-0.5 mg tablet 1 po qD 03/07 completed Rx Oral Tablet 27-0.5 mg;Recor ded Status: Recorded on: 02/25/20 08 10:02PM; Disconti nued Status: Disconti nued on: 03/07/20 08 2:01PM;U ser: granth Not Available Not Available Not Available Nexplanon 68 mg subdermal implant 01/23 completed Nexplano n subderma l implant 68 mg;Recor ded Status: Recorded on: 06/15/19 15 10:51AM; User: kayla Not Available Not Available Not Available 28 mg iron-800 mcg tablet Take 1 tablet every day by oral route. 10/16 completed Not Available Not Available Not Available PNV 29-1 29 mg iron-1 mg tablet 10/28 completed Not Available Not Available Not Available buprenorp nancy 2-8mg tablets daily active Not Available Not Available No t Available desvenlaf axine succinate ER 25 mg tablet,ex tended release 24 hr 09/30 completed Not Available Not Available Not Available Vitals Date Recorded Body height Body mass index (BMI) Body weight Pain severity - 0-10 verbal numeric rating [Score] - Reported Systolic And Diastolic Provider Name and Address Organization Details Last Updated DateTime 08/21/2021 162.56 cm 60.6 kg/m2 068122.1 0661 g 0 124/78 mm[Hg] Sonia Dinesh [place] - [facility] 15:02:57 Date Recorded Body height Body mass index (BMI) Provider Name and Address Organization Details Last Updated DateTime 08/25/2021 162.56 cm 61.3 kg/m2 Infusion Nurse [facility] [address], [place], [address], [facility] 08/25/2021 15:24:34 Date Recorded Body weight Systolic And Diastolic Provider Name and Address Organization Details Last Updated DateTime 08/25/2021 210075.52645 g 118/78 mm[Hg] Clari Maldonado CNM [address], [place], [address], [facility] 08/25/2021 17:04:27 Date Recorded Body height Body mass index (BMI) Body weight Systolic And Diastolic Provider Name and Address Organization Details Last Updated DateTime 10/28/2021 162.56 cm 58.9 kg/m2 117784.18 g 122/78 mm[Hg] Infusion Nurse [facility] [address], [place], [address], [place] - [facility] 10/28/2021 14:26:57 Date Recorded Body height Provider Name an d Address Organization Details Last Updated DateTime 10/28/2021 162.56 cm Marisa Mario [place] - [facility] 16:31:11 Date Recorded Body height Provider Name an d Address Organization Details Last Updated DateTime 11/25/2021 162.56 cm Marisa Mario [place] - [facility] 09:37:47 Social History Question Answer Notes LastModified by Organizat ion Details LastModified Time Tobacco Smoking Status Current Every Day Smoker starting 2019 Alyson schilling, [place] - [facility] 09/30/2020 15:46:47 Do You Have An Advance Directive? No Information not available 07/30/2016 Are You Blind Or Do You Have Difficulty Seeing? No [email or web address] Information not available 07/30/2016 Is Blood Transfusion Acceptable In An Emergency? Yes [email or web address] Information not available 07/30/2016 What Is Your Level Of Caffeine Consumption? Moderate Information not available 09/30/2020 How Much Tobacco Do You Chew? None Information not available 07/30/2016 Are You Deaf Or Do You Have Serious Difficulty Hearing? No [email or web address] Information not available 07/30/2016 Which Illicit Or Recreational Drugs Have You Used? None Information not available 07/30/2016 Live Alone Or With Others? With Others [email or web address] Information not available 07/30/2016 What Was The Date Of Your Most Recent Tobacco Screening? 09/30/2020 Information not available 09/30/2020 How Many Children Do You Have? 4 Information not available 07/30/2016 Performs Monthly Self-breast Exam? No [email or web address] Information not available 07/30/2016 Do You Use Protection During Sex? No [email or web address] Information not available 07/30/2016 What Is Your Relationship Status? [email or web address] Information not available 07/30/2016 Seat Belts Used Routinely Yes [email or web address] Information not available 07/30/2016 Are You Sexually Active? Yes [email or web address] Information not available 07/30/2016 How Much Tobacco Do You Smoke? 0.5 PPD Information not available 09/30/2020 Do You Use Sunscreen Routinely? No Information not available 07/30/2016 Do You Have Difficulty Walking Or Climbing Stairs? No Information not available 07/30/2016 Sex: Female Functional Status Question Answer Note LastModified by Organizat ion Details LastModified Time What is your level of alcohol consumption? None [email or web address] Information not available 07/30/2016 Do you or have you ever used smokeless tobacco? Never used smokeless tobacco Information not available 09/30/2020 Do you have difficulty doing errands alone? 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 No [email or web address] Information not available 07/30/2016 Do you or have you ever used e-cigarettes or vape? Never used electronic cigarettes Information not available 09/30/2020 What is your exercise level? Occasional Information not available 09/30/2020 Mental Status Question Answer Note LastModified by Organization D etails LastModified Time Do you have difficulty concentrating, remembering or making decisions? No [email or web address] Information no t available 07/30/2016 Family History Relationship Description Onset Age of this Age Resolved Age Notes LastModified by Organization Details LastModified Time Unspecified Relation Type 2 diabetes mellitus Uncle Not available 2016 09:19:39 Maternal Grandmother Family history of malignant neoplasm of lung Not available 2016 09:20:05 Medical History Condition Response Pancreatitis N Other N Atrial Fibrillation N congenital heart disease N Blood Diseases N Hyperthyroidism N Rheumatoid arthritis N Blood Transfusion N Erectile Dysfunction N amputation N Skin Lesions N Depression N Pneumonia N Incontinence N Murmur N Edema N Alzheimer's Disease N Migraine Headaches N Tobacco Abuse N Anxiety Disorder N Hemorrhoids N Obesity Y Vision or Eye Problems N Restless Leg Syndrome N Arthritis N Infertility N Polyps N Carpal Tunnel N Acid Reflux (GERD) N Cancer N Stroke N Varicosities N Tendonitis N Crohn's Disease N Hypercholesterolemia N Skin Cancer N Fibromyalgia N Headaches N Anal Fissure N Irritable Bowel Syndrome N Kidney Disease N Heart Problems N Hospitalizations N Gallstones N Kidney or Bladder Problems N Goiter N Acne N Eating Disorder N Maher's Esophagus N Hypertriglyceridemia N Constipation N Embolism N Vitamin B12 Deficiency N Deviated Septum N AIDS/HIV N Myocardial Infarction N Asthma N Mitral Valve Disorders N Vertigo N Hepatitis N Thyroid Cancer N Neuropathy N History of DVT N Herniated Disc N Chicken Pox N Von Willebrands Disease N Thrombophilias N Breast Cancer N Hernia N Plantar Fasciitis N Lung Disease N Hypothyroidism N Defects or Inherited Disease N Breast Problem N Ovarian Cyst N Anesthesia Complications N Testosterone Deficiency N Interstitial Cystitis N Congenital Anomalies N Hypoglycemia N Blood clot N Vitamin D Deficiency N Cellulitis N Endometriosis N Fracture N Bladder or Kidney Problems N Panic Disorder N Schizophrenia N Concussion N Spina Bifida N Osteoarthritis N Parkinson's Disease N Disc Protrusion N STI N Esophagitis N Angina N Thyroid Problems N GI Problems N ADD/ADHD N Anemia N Multiple Sclerosis N Abnormal PAP N Lumbago N Mental Illness N Psychiatric Illness N Diabetes N Ovarian Cancer N Degenerative Disc Disease N Seizures/Epilepsy N Hyperlipidemia N Syncope N Insomnia N Eczema N Abuse/Domestic Violence N Attention Deficient Disorder N Dementia N Ulcerative colitis N Cerebrovascular Disease N Depression N Guillain-[place] N Sleep Apnea N Aneurysm N Bronchitis N Heart Disease N Hypertension N Pre-Eclampsia N Suicidal Ideation N Osteoporosis N Gynecological History Statement/Question Response Abnormal Pap N Date of Last Mammogram Date of LMP 10/21/2021 STIs/STDs N Current Control Method Condoms Last Annual Exam/Provider 02/25/21 OBPE L LC Date of Last Colonoscopy Most Recent Bone Density Sexually Active? Y Date of Last Cervical Culture 02/25/2021 Menses Monthly Y Date of Last Pap Smear 02/25/2021 Sexual Problems? N LMP Approximate Obstetrics History GPAL:G 7 P 4 0 3 5 Type Value Multiple Births 1 Full Term 4 Spontaneous 2 Living 5 Ectopics 1 Total 7 Immunizations Vaccine Type Date Status Note Provider Hardeep [place] and Address Organization Details Recorded Time HPV9 10/17/19 21 completed Heydi Denis MD [facility] [address], [place], [address], [place] [facility] 10/16/2020 22:23:41 COVID-19, mRNA, LNP-S, PF, 100 mcg/0.5mL dose or 50 mcg/0.25mL dose 10/17/19 21 cancelled patient objection Heydi Denis MD [address], [place], [address], [place] [facility] 10/16/2020 22:23:41 COVID-19, mRNA, LNP-S, PF, 100 mcg/0.5mL dose or 50 mcg/0.25mL dose 03/02/20 21 cancelled patient objection Heydi Denis MD [address], [place], [address], [place] [facility] 03/02/2021 13:36:46 Influenza, split virus, quadrivalent, PF 03/02/20 21 cancelled patient objection Heydi Denis MD [address], [place], [address], [place] [facility] 03/02/2021 13:36:46 Influenza, split virus, quadrivalent, preservative 03/27/20 21 completed Infusion Nurse RICHIE [address], [place], [address], [facility] - [facility] 03/27/2021 10:46:10 Tdap 07/01/19 22 completed Alyson Mckinney null, [facility] 07/01/2021 16:55:54 COVID-19, mRNA, LNP-S, PF, 100 mcg/0.5mL dose or 50 mcg/0.25mL dose 10/29/19 22 completed Sallie Escobar null, [place] - [facility] 10/28/2021 17:28:14 COVID-19, mRNA, LNP-S, PF, 100 mcg/0.5mL dose or 50 mcg/0.25mL dose 11/26/19 22 completed Marisa Mario null, [facility] 11/25/2021 09:39:57 Past Encounters Encounter ID Performer Location Encounter Start Date Encounter Closed Date Diagnosis/Indication Diagnosis SNOMED-CT Code Diagnosis ICD10 Code Diagnosis IMO Codes Diagnosis Note [id number] [facility] [address] [place] [address] 03/07/2008 00:00:00 [id number] [facility] [address] [place] [address] 11/20/2008 00:00:00 [id number] [facility] [address] [place] [address] 07/29/2009 00:00:00 [id number] [facility] [address] [place] [address] 09/10/2009 00:00:00 [id number] [facility] [address] [place] [address] 10/14/2009 00:00:00 [id number] [facility] [address] [place] [address] 12/10/2009 00:00:00 [id number] [facility] [address] [place] [address] 04/11/2010 00:00:00 [id number] [facility] [address] [place] [address] 04/29/2010 00:00:00 [id number] [facility] [address] [place] [address] 06/06/2010 00:00:00 [id number] [facility] [address] [place] [address] 07/28/2010 00:00:00 [id number] [facility] [address] [place] [address] 08/04/2010 00:00:00 [id number] [facility] [address] [place] [address] 10/14/2009 00:00:00 [id number] [facility] [address] [place] [address] 11/14/2010 00:00:00 [id number] [facility] [address] [place] [address] 11/26/2010 00:00:00 [id number] [facility] [address] [place] [address] 06/04/2011 00:00:00 [id number] [facility] [address] [place] [address] 09/04/2011 00:00:00 [id number] [facility] [address] [place] [address] 09/10/2011 00:00:00 [id number] [facility] [address] [place] [address] 08/04/2010 00:00:00 [id number] [facility] [address] [place] [address] 08/22/2010 00:00:00 [id number] [facility] [address] [place] [address] 01/04/2012 00:00:00 [id number] [facility] [address] [place] [address] 08/12/2012 00:00:00 [id number] [facility] [address] [place] [address] 09/30/2010 00:00:00 [id number] [facility] [address] [place] [address] 08/16/2012 00:00:00 [id number] [facility] [address] [place] [address] 11/14/2010 00:00:00 [id number] [facility] [address] [place] [address] 08/18/2012 00:00:00 [id number] [facility] [address] [place] [address] 08/30/2012 00:00:00 [id number] [facility] [address] [place] [address] 09/14/2012 00:00:00 [id number] [facility] [address] [place] [address] 04/18/2013 00:00:00 [id number] [facility] [address] [place] [address] 06/15/2014 00:00:00 [id number] [facility] [address] [place] [address] 06/15/2014 00:00:00 [id number] MD Raad Addison MECHANICAL PRESS OPERATOR [address] [facility] [address] [place] [address] 09/30/2020 14:42:47 09/30/2020 17:56:29 Early stage of [id number] Z34.90 Approximat wilmer 5+4 by menstrual dates. hCG and ultrasound not consistent with this, closer to ~4 wks; but with appropriat e increase hCG over last 72 hours. Low normal progestero ne. Patient interested in progestero ne supplement ation given prior chemical SABs although limitation s of this reviewed. Order given to patient to have HCG at [facility] on wednesday and Wednesday. Will discuss by phone call. If continuing appropriat e elevation should be 2-3000 by early next week when we can do next ultrasound . Reviewed still cannot 100% exclude ectopic , lower suspicion with progestero ne 9. Precaution s reviewed to report to ER if any severe painOr heavy bleeding. Medication counseling reviewed-c ontinue buprenorph ine 8 mg. Okay to continue Effexor given significan t side effects without this. Advise DC THC. Rx PNv Ultrasound today with no overt signs of extrauteri ne nor intrauteri ne sac yet Surveillan ce of subcutaneous contraceptive implant 066102039 Z30.46 2014 Nexplanon, did not return for removal. Advise removal of inert implant soon Recurrent miscarriage 10 8632180 N96 Reported chemical SAB 1 2 1, and 4-1-21 without clinical follow-up. Negative UPT by 4 3 0. 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 Currently on buprenorph ine replacemen t x2 years with [facility] . Currently using recreation al THC. States she has an interest in being off altogether do not want a baby born addicted reviewed with high risk of recurrence of addictive and abusive drug behavior if taken off of MAT which is more serious for baby and more significan t social consequenc es for mother who is already lost custody of first 4 children due to drug abuse... Advised discussion of options with her unemployment specialist although routine obstetric recommenda tion is for maintenanc e of MAT in most cases unless individual is highly motivated with good addiction care support to attempt discontinu ation. Advise discontinu ation BLU THC Cigarette smoker 0535475 7 F17.210 O99.331 Advise discontinu ation BLU cigarette smoking Spotting p er vagina in 839453115 O26.851 Self-limit ed spotting while in office today. Rh+. Reassuring hCG rise last 72 hours. Close expectant management . Reviewed Morbid obesity 729071203 E66.01 O99.211 High risk 4720 0007 O09.91 r /T drug abuse history, morbid obesity, early SAB x2In last 6 months, prior section, prior multiple gestation, prior macrosomia . [id number] Heydi Denis MD [place] [employer] PRESS OPERATOR [address] [facility] [place] [address] 10/07/2020 15:00:13 10/07/2020 15:59:00 Early stage of [id number] Z34.90 Early unknown location --after 3 initial intervals on hCG that met acceptable criteria barely (66% increase per at 48 hours, doubling at 72 hours) with borderline progestero ne, today's level returns post visit at 744 suggesting plateauing starting to occur consistent with nonviable . Ultrasound imaging today raises slightly more concerned about possible ectopic although doubt ruptured as hemodynami neetu stable, small amount of posterior cul-de-sac fluid compared to none 1 week ago. High risk 4720 0007 O09.91 r /T drug abuse history, morbid obesity, early SAB x2In last 6 months, prior section, prior multiple gestation, prior macrosomia . Surveillan ce of subcutaneous contraceptive implant 853309903 Z30.46 2014 Nexplanon, did not return for removal. Advise removal of inert implant soon Recurrent miscarriage 10 8249086 N96 Reported chemical SAB 1 2 1, and 4-1-21 without clinical follow-up. Negative UPT by 4 3 0. Spotting p er vagina in 098197367 O26.851 Self-limit ed spotting over the last week Rh+. 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 Currently on buprenorph ine replacemen t x2 years with [facility] . Currently using recreation al THC. States she has an interest in being off altogether do not want a baby born addicted reviewed with high risk of recurrence of addictive and abusive drug behavior if taken off of MAT which is more serious for baby and more significan t social consequenc es for mother who is already lost custody of first 4 children due to drug abuse... Advised discussion of options with her unemployment specialist although routine obstetric recommenda tion is for maintenanc e of MAT in most cases unless individual is highly motivated with good addiction care support to attempt discontinu ation. Advise discontinu ation BLU THCWith conclusion s of nonviable today we will discuss further at upcoming visits in near future if she would like to work with her drug rehab center on complete discontinu ation versus ongoing MAT maintenanc e prior to future attempts Morbid obesity 988191085 E66.01 O99.301 [id number] Heydi Denis MD [place] MECHANICAL PRESS OPERATOR [address] [facility] [place] [address] 10/09/2020 14:49:27 10/09/2020 16:32:29 Recurrent miscarriage 432944061 N96 Reported chemical SAB 1 2 1, and 4-1-21 without clinical follow-up. Negative UPT by 4 3 0. Ectopic 578718 09 O00.90 Strongly suspected per serial hCGs and ultrasound finding. Does not have clinical suspicion of rupture at this point. Maximum hCG of 744. To [facility] today for methotrexa te 50 mg per metered squared x1 IM HCG at [facility] wednesday and wednesday. 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 Currently on buprenorph ine replacemen t x2 years with [facility] . Currently using recreation al THC. States she has an interest in being off altogether do not want a baby born addicted reviewed with high risk of recurrence of addictive and abusive drug behavior if taken off of MAT which is more serious for baby and more significan t social consequenc es for mother who is already lost custody of first 4 children due to drug abuse... Advised discussion of options with her unemployment specialist although routine obstetric recommenda tion is for maintenanc e of MAT in most cases unless individual is highly motivated with good addiction care support to attempt discontinu ation. Advise discontinu ation BLU THCWith conclusion s of nonviable today, I have advised her to discuss upcoming visits in near future if she would like to work with her drug rehab center on complete discontinu ation versus ongoing MAT maintenanc e prior to future attempts Morbid obesity 537872545 E66.01 O99.211 High risk 4720 0007 O09.91 r /T drug abuse history, morbid obesity, early SAB x2In last 6 months, prior section, prior multiple gestation, prior macrosomia . Cigarette smoker 3943383 7 F17.210 O99.331 Advise discontinu ation BLU cigarette smoking [id number] Heydi Denis MD [place] MECHANICAL PRESS OPERATOR [address] [facility] [place] [address] 10/16/2020 14:04:42 10/16/2020 16:57:08 Ectopic [id number] O00.90 Status post methotrexa te treatment 10 days ago with appropriat e interval drop of greater than 50%. Advised repeat HCG 1 and 2 weeks following up to completely negative, Pt desires to have lab at [facility], order sent Immunization due 5302119 08 Z28.3 Z23 Z28.21 Gardasil series desired start today. Covid declined counseled Removal of subcutaneous contraceptive done [id number] 84901 Z98.890 Nexplanon since 2014 removed today without difficulty Contracept ion care management 016094922 Z30.9 Discussed options and desires start OCPs today Screening for malignant neoplasm of cervix 023744746 Z12.4 Recurrent miscarriage 10 6876314 N96 Reported chemical SAB 1 2 1, and 4-1-21 without clinical follow-up. Negative UPT by 4 3 0. 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 Currently on buprenorph ine replacemen t x2 years with [facility] . Currently using recreation al THC. States she has an interest in being off altogether do not want a baby born addicted reviewed with high risk of recurrence of addictive and abusive drug behavior if taken off of MAT which is more serious for baby and more significan t social consequenc es for mother who is already lost custody of first 4 children due to drug abuse... Advised discussion of options with her unemployment specialist although routine obstetric recommenda tion is for maintenanc e of MAT in most cases unless individual is highly motivated with good addiction care support to attempt discontinu ation. Advise discontinu ation BLU THCWith conclusion s of nonviable last I have advised her to discuss upcoming visits in near future if she would like to work with her drug rehab center on complete discontinu ation versus ongoing MAT maintenanc e prior to future attempts-s tates she would like to try to be off completely before Morbid obesity 459036605 E66.01 O99.211 Cigarette smoker 1741357 7 F17.210 O99.331 Advise discontinu ation BLU cigarette smoking Routine gy necologic examination done 9864232387 9101 Z01.816 [id number] Hyedi Denis MD [place] MECHANICAL PRESS OPERATOR [address] [facility] [place] [address] 01/23/2021 09:10:43 01/23/2021 09:53:20 High risk 70241595 O09.91 r /T drug abuse history, morbid obesity, early SAB x2 and 1 ectopic with last year. prior section, prior multiple gestation, prior macrosomia . 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 Currently on buprenorph ine replacemen t x2 years with [facility] . Currently using recreation al THC. States she has an interest in being off altogether do not want a baby born addicted reviewed with high risk of recurrence of addictive and abusive drug behavior if taken off of MAT which is more serious for baby and more significan t social consequenc es for mother who is already lost custody of first 4 children due to drug abuse... Advised discussion of options with her unemployment specialist although routine obstetric recommenda tion is for maintenanc e of MAT in most cases unless individual is highly motivated with good addiction care support to attempt discontinu ation.Stat es she has already working with her provider to slowly wean BP nor femur Morbid obesity 873642134 E66.01 O99.211 BMI 60 Cigarette smoker 8144464 7 F17.210 O99.331 Advise discontinu ation BLU cigarette smoking Immunization due 4688070 08 Z28.3 Z23 Z28.21 Gardasil series desired start October 16. Will hold on 2nd dose until completed Covid declined counseled. Will need to readdress with ongoing Supervisio n of high risk with history of previous section done 7931716183 9106 O09.435 [id number] RICHARD Hogue MECHANICAL PRESS OPERATOR [address] [place] [address] [address] [place] [address] 02/11/2021 15:22:35 02/11/2021 16:26:45 Maternal obesity complicating , childbirth and the puerperium, antepartum 4414304810 07 O99.211 High risk 4720 0007 O09.91 r/T drug abuse history, morbid obesity, early SAB x2 and 1 ectopic with last year. prior section, prior multiple gestation, prior macrosomia . Supervisio n of high risk with history of previous section done 3936360795 9106 O09.899 Opioid dep endence, on agonist therapy 6639252029 105 F11.20 O99.320 Cigarette smoker 0318391 7 F17.210 O99.330 Past pregn camilla history of delivery of macrosomal infant 5427878897 9102 Z87.59 History of substance abuse 029520579 F19.21 Recurrent miscarriage 10 9879075 N96 Excessive caffeine intake 8683842380 66239 R63.8 [id number] MD Raad Addison MECHANICAL PRESS OPERATOR [address] [facility] [place] [address] 02/25/2021 14:56:37 02/25/2021 17:25:42 High risk 66728436 O09.91 r /T drug abuse history, morbid obesity, early SAB x2 and 1 ectopic with last year. prior section, prior multiple gestation, prior macrosomia . 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 Currently on buprenorph ine replacemen t x2 years with [facility] . Currently using recreation al THC. States she has an interest in being off altogether do not want a baby born addicted reviewed with high risk of recurrence of addictive and abusive drug behavior if taken off of MAT which is more serious for baby and more significan t social consequenc es for mother who is already lost custody of first 4 children due to drug abuse... Advised discussion of options with her unemployment specialist although routine obstetric recommenda tion is for maintenanc e of MAT in most cases unless individual is highly motivated with good addiction care support to attempt discontinu ation.Stat es she has already working with her provider to slowly wean. Currently down to 12 mg/day Supervisio n of high risk with history of previous section done 7745540618 9106 O09.899 Maternal t obacco abuse 736791807 O99.331 Hepatitis C antibody detected 144806650 Z86.19 plan HCV quant and CMP with early 1 hr next visit Gestation period, 13 weeks 20429645 Z3A.13 Screening for malignant neoplasm of cervix 408692949 Z12.4 screening 2437 89679 Z36.9 Vaccine de clined by patient 1734879433 02 Z28.21 [id number] GEOVANNA Tomas MECHANICAL PRESS OPERATOR [address] [facility] [place] [address] 03/27/2021 08:24:40 03/27/2021 10:00:58 Maternal obesity complicating , childbirth and the puerperium, antepartum 5207067220 07 O99.212 History of substance abuse 524406006 F19.21 Chronic hepatitis C 1283 03838 B18.2 Supervisio n of high risk with history of previous section done 7729834087 9106 O09.899 Gestation period, 17 weeks 66490686 Z3A.17 screening 2437 78454 Z36.9 Morbid obesity 327873321 E66.01 Influenza vaccine needed 8932342548 106 Z23 Mixed anxi ety and depressive disorder 989828941 F41.8 High risk 4720 0007 O09.92 [id number] Shayla Beasley APRN [place] MECHANICAL PRESS OPERATOR [address] [place] [address] [place] [address] 04/02/2021 08:32:04 04/02/2021 10:21:27 Chronic hepatitis C 483415061 B18.2 Cigarette smoker 6214843 7 F17.210 High risk 4720 0007 O09.92 Past pregn camilla history of delivery of macrosomal 0549333505 9102 Z87.59 History of substance abuse 556201002 F19.21 Maternal o besity complicating , childbirth and the puerperium, antepartum 8918507481 07 O99.212 Opioid dep endence, on agonist therapy 5902504818 105 F11.20 Supervisio n of high risk with history of previous section done 7780517560 9106 O09.899 Gestation period, 18 weeks 92281130 Z3A.18 [id number] Keya Matt MD [place] MECHANICAL PRESS OPERATOR [address] [place] [address] [place] [address] 04/24/2021 10:01:21 04/24/2021 12:00:10 Chronic hepatitis C 254206807 B18.2 Cigarette smoker 1534980 7 F17.210 High risk 4720 0007 O09.92 Past pregn camilla history of delivery of macrosomal infant [id number] 9102 Z87.59 History of substance abuse 777770890 F19.21 Maternal o besity complicating , childbirth and the puerperium, antepartum 1994885039 07 O99.212 Opioid dep endence, on agonist therapy 7434971995 105 F11.20 Supervisio n of high risk with history of previous section done 1658797939 9106 O09.899 screening 2437 64262 Z36.9 Gestation period, 21 weeks 75153443 Z3A.21 Cough 67822965 R05.9 [id number] Clari Maldonado CNM [place] [employer] [address] [place] [address] GORDO Wang 56631-096 7 05/26/2021 11:06:36 05/26/2021 11:49:27 Opioid dependence, on agonist therapy 9392679922 105 F11.20 Chronic hepatitis C 1283 04005 B18.2 Morbid obesity 790861374 E66.01 Past pregn camilla history of delivery of macrosomal 6594890026 9102 Z87.59 High risk 4720 0007 O09.92 screening 2437 83663 Z36.9 Gestation period, 25 weeks 02989025 Z3A.25 Heartburn 07381134 R12 [id number] Shayla Beasley APRN [place] [employer] [address] [place] [address] GORDO Wang 24873-543 7 06/11/2021 08:39:00 06/11/2021 10:12:48 Chronic hepatitis C 720433698 B18.2 Cigarette smoker 1520128 7 F17.210 High risk 4720 0007 O09.92 Past pregn camilla history of delivery of macrosomal 6914646283 9102 Z87.59 History of substance abuse 770424738 F19.21 Maternal o besity complicating , childbirth and the puerperium, antepartum 3509461888 07 O99.212 Supervisio n of high risk with history of previous section done 0081931279 9106 O09.899 Gestation period, 28 weeks 61135076 Z3A.28 screening 2437 85693 Z36.9 Otalgia 44826750 H92.02 Nasal congestion 6284594 0 R09.81 [id number] Heydi Denis MD [place] [employer] [address] [place] [address] GORDO Wang 41289-040 7 07/01/2021 15:01:26 07/01/2021 16:56:05 Chronic hepatitis C 417533395 B18.2 High risk 4720 0007 O09.92 Past pregn camilla history of delivery of macrosomal 2931852659 9102 Z87.59 History of substance abuse 916677776 F19.21 screening 2437 22266 Z36.9 Gestation period, 30 weeks 59158487 Z3A.30 Maternal o besity complicating , childbirth and the puerperium, antepartum 5203078512 07 O99.212 Opioid dep endence, on agonist therapy 7777704321 105 F11.20 Supervisio n of high risk with history of previous section done 6371692758 9106 O09.899 Vaccination needed 03778 91754 56144 Z23 Cholelithi asis without obstruction 32392941 K80.20 Incidental finding on the 1-week imaging. Check right upper quadrant ultrasound Large for gestation age fetus 840898373 O36.63X0 98th percentile at 31 weeks Breech presentation 6096 002 O32.1XX9 [id number] GEOVANNA [place] [employer] [address] [place] [address] GORDO Wang [phone] 7 07/22/2021 11:32:27 07/22/2021 12:07:56 Supervision of high risk with history of previous section done 3260599205 9106 O09.899 High risk 4720 0007 O09.92 Chronic hepatitis C 1283 47063 B18.2 Past pregn camilla history of delivery of macrosomal infant 8252028922 9102 Z87.59 History of substance abuse 461904814 F19.21 screening 2437 51849 Z36.9 Maternal o besity complicating , childbirth and the puerperium, antepartum 6393812653 07 O99.212 Opioid dep endence, on agonist therapy 0141109673 105 F11.20 Cholelithi asis without obstruction 17621067 K80.20 Incidental finding on the 1-week imaging. Check right upper quadrant ultrasound Large for gestation age fetus 974948689 O36.63X0 98th percentile at 31 weeks Breech presentation 6096 002 O32.1XX9 Gestation period, 34 weeks 17834712 Z3A.34 [id number] MD Raad Nuñez ME[employer] [address] [place] [address] GORDO Wang [phone] 7 08/07/2021 14:57:00 08/07/2021 16:46:04 Supervision of high risk with history of previous section done 9926842721 9106 O09.899 High risk 4720 0007 O09.92 Chronic hepatitis C 1283 77822 B18.2 Past pregn camilla history of delivery of macrosomal 3507038720 9102 Z87.59 History of substance abuse 337175652 F19.21 screening 2437 15721 Z36.9 Maternal o besity complicating , childbirth and the puerperium, antepartum 0016087852 07 O99.212 Opioid dep endence, on agonist therapy 9757960952 105 F11.20 Cholelithi asis without obstruction 99881193 K80.20 Large for gestation age fetus 542501484 O36.63X0 Gestation period, 36 weeks 62526923 Z3A.36 [id number] Rhoda Nicole APRN [place] [employer] [facility] GORDO Wang [phone] 7 08/11/2021 09:03:16 08/11/2021 10:47:22 Chronic hepatitis C 672474937 B18.2 Cholelithi asis without obstruction 81212929 K80.20 High risk 4720 0007 O09.92 r/T drug abuse history, morbid obesity, early SAB x2 and 1 ectopic with last year. prior section, prior multiple gestation, prior macrosomia . Past pregn camilla history of delivery of macrosomal 6412322998 9102 Z87.59 History of substance abuse 624926763 F19.21 Large for gestation age fetus 758839357 O36.63X0 Maternal o besity complicating , childbirth and the puerperium, antepartum 3958152403 07 O99.212 Supervisio n of high risk with history of previous section done 8629626982 9106 O09.899 Maternal t obacco abuse 199614689 O99.333 Gestation period, 36 weeks 88753734 Z3A.36 Polyhydramnios 25250407 O40.3XX0 [id number] Heydi Denis MD [place] [employer] [facility] GORDO Wang [phone] 7 08/18/2021 10:06:49 08/18/2021 12:15:51 Pre-surgery evaluation 970893593 Z01.818 counsellin g as below. Preop repeat 08-28-21. Anesthesia consult added with PAT's going today. Large for gestation age fetus 116016555 O36.63X0 98th percentile at 31 weeks Maternal o besity complicating , childbirth and the puerperium, antepartum 2542304253 07 O99.212 Mixed anxi ety and depressive disorder 983837423 F41.8 Opioid dep endence, on agonist therapy 5153582495 105 F11.20 Polyhydramnios 88879013 O40.3XX0 Supervisio n of high risk with history of previous section done 3465274860 9106 O09.899 Gestation period, 37 weeks 07399393 Z3A.37 [id number] Keya Matt MD [place] [employer] [address] [place] [address] [place] [phone] 7 08/15/2021 09:52:08 08/15/2021 11:21:32 Chronic hepatitis C 522785620 B18.2 Cholelithi asis without obstruction 30972891 K80.20 High risk 4720 0007 O09.92 Past pregn camilla history of delivery of macrosomal infant 7597208375 9102 Z87.59 History of substance abuse 569838811 F19.21 Large for gestation age fetus 433785338 O36.63X0 Maternal o besity complicating , childbirth and the puerperium, antepartum 0274259415 07 O99.212 Supervisio n of high risk with history of previous section done 9350974870 9106 O09.899 Maternal t obacco abuse 119112780 O99.333 Polyhydramnios 55506764 O40.3XX0 Gestation period, 37 weeks 49200424 Z3A.37 [id number] Keya Matt MD [place] [employer] [address] [place] [address] [place] [phone] 7 08/21/2021 13:41:57 08/21/2021 15:20:47 Chronic hepatitis C 397135475 B18.2 Cholelithi asis without obstruction 44503448 K80.20 High risk 4720 0007 O09.92 Past pregn camilla history of delivery of macrosomal 1827121089 9102 Z87.59 History of substance abuse 640738063 F19.21 Large for gestation age fetus 477799318 O36.63X0 Maternal o besity complicating , childbirth and the puerperium, antepartum 1821767328 07 O99.212 Supervisio n of high risk with history of previous section done 8061311015 9106 O09.899 Maternal t obacco abuse 330785241 O99.333 Polyhydramnios 98293718 O40.3XX0 screening 2437 03153 Z36.9 Gestation period, 38 weeks 34963990 Z3A.38 [id number] Clari Maldonado CNM [place] [employer] [address] [place] [address] GORDO Wang 65203-084 7 08/25/2021 15:04:45 08/25/2021 17:05:10 Cholelithiasis without obstruction 50297286 K80.20 Large for gestation age fetus 634019159 O36.63X0 Supervisio n of high risk with history of previous section done 0467845511 9106 O09.899 Maternal t obacco abuse 086862420 O99.333 Polyhydramnios 67758106 O40.3XX0 screening 2437 43290 Z36.9 Gestation period, 38 weeks 68313930 Z3A.38 [id number] Clari Maldonado CNM [place] [employer] [address] [place] [address] GORDO Wang 59058-699 7 10/28/2021 14:16:12 10/28/2021 15:01:24 state 02177810 Z39.2 Chronic hepatitis C 1283 06079 B18.2 History of substance abuse 792742527 F19.21 Opioid dep endence, on agonist therapy 8742675773 105 F11.20 Morbid obesity 976569389 E66.01 Pruritus of vagina 92719 003 L29.3 [id number] Sallie Escobar MD [address] GORD[place] Wang [address]-510 7 10/28/2021 15:53:59 10/28/2021 17:08:48 Administration of SARS-CoV-2 antigen vaccine 694678243 Z23 [id number] Germaine Chauhan APRN [address] G[place] Wang 835[address]-801 7 11/25/2021 08:54:07 11/25/2021 09:57:27 Administration of SARS-CoV-2 antigen vaccine 004033733 Z23 Health Concerns Section Related Observation LastModified by Organization Detai ls LastModified Time None Recorded Concern Status LastModified by Organization Details LastModified Time None Recorded Advance Directives Directive N: Payers Insurance Date Sequence Insurance Name Policy Number Policy Mendoza Covered Member ID Mendoza Member ID Guarantor Name 01/23/2021 1 [facility] (MEDICAID HMO) Ade Lena [id number] Ade Alvares 09/16/2021 [id number] Lena [id number] Ade Alvares 09/09/2021 [id number] L[place] [id number] Ade Alvares 01/15/2024 [place] [id number] Ade Lena [id number] Ade Alvares 01/15/2024 1 [facility] (MEDICAID REPLACEMENT - HMO) CHUCK Hood Lena [id number] Ade Alvares Notes Date Note Type Note Provider Name and Address Organization Details Recorded Time 2 text/html ROS as noted in the HPI nst, , obGrover VALDERRAMA, Debbie Keya Matt MD [address], [place], [address], [place] - [facility] 08/22/2021 19:37:21 2 text/html ROS as noted in the HPI NST, OB Clari Maldonado CNM [address], [place], [address], [place] [facility] 08/26/2021 09:12:57 2 text/html VisitReported by PatientHPIFor onset/timing, patient reportsbaby's name: (jose alberto alvares),baby's weight:,date of delivery: (08/28/21), anddelivered by: (dr fisher). For quality, patient reportsrepeat lst c/s. For context, patient reportscomplications of : __, complications: none, andfeeding choice: bottle. For associated symptoms, patient reportsno abnormal bleeding,no pelvic pain,no constipation,no fecal incontinence,no dysuria,no urinary incontinence, andno fever.Bleeding has stopped. She had LMP 10/21/21. Bowels and bladder working well.Denies depression. Has had intercourse and is using condoms. She may be interested in OCP's but unsure how effective they would be with BMI 58. She may be interested in Nexplanon or IUD. Plans to discuss with FOB and she will let us know if she is interested in BC. Enc to add spermacide for more effective condom coverage.She is still taking Subutex 8 mg BID. She plans to wean off Subutex before she gets again.She is Hep C positive and will be referred for evaluation and treatment.Baby with her and had his vaccines at Dr Crowley office today.She desires COVID vaccine. She will begin working at [employer] and needs COVID vaccine before beginning job. Enc to seek care with [facility] for vaccines.ROS as noted in the HPI Clari Maldonado, [facility] [address], [place], [address], [place] - [facility] 10/28/2021 15:29:10 OBGyn Episode Ob Episode Information Episode Created Date Number of Fetuses Patient Bloodtype Patient rh Status Prepregnancy Weight lbs Domestic Partner Domestic Partner Phone Father Name Entertainment Dancer Status 01/24/20 21 1 CLOSED Fetus Data First Name Last Name Admitted to NICU Weight (g) Sex Living Outcome Pediatric Complications Fetus ID Race Codes Race Delivery Type Ectopic 34703 Quan Calculation Initial Quan Date Initial Exam Date Initial Exam Provider Initial Ultrasound Date Last Menstrual Period Date Ultra Sound Weeks Gestation 0 Eighteen To Twenty Week Quan Update Ultra Sound Date Fundal Height At Umbil Quickening Date Ultra Sound Latest Weeks Gestation Final Quan Confirmed By Final Quan Confirmed Date Final Quan Date Ultra Sound Latest Days Gestation 0 0 Menstrual History Last Menstrual Date Menses Monthly On Bcp Conception Prior Menses Frequency Hcg Plus Date Menarche Onset Age Delivery Information Delivery Date Delivery Type Labor Anesthesia Weeks Gestation Incision Type Labor Labor Length Hrs Delivered By Post Complications Tubal Sterilization Discharge Date Comments 1 Ectopic treated with methotrex ate Discharge Information Feeding Method Contraceptive Method Maternal HG B and HCT Levels Ob Episode Information Episode Created Date Number of Fetuses Patient Bloodtype Patient rh Status Prepregnancy Weight lbs Domestic Partner Domestic Partner Phone Father Name Entertainment Dancer Status 01/31/20 21 1 O Positive Daniel Alvares (29) unsure CLOSED Fetus Data First Name Last Name Admitted to NICU Weight (g) Sex Living Outcome Pediatric Complications Fetus ID Race Codes Race Delivery Type 3770.48 35 M true Full Term Baby stayed 96 hrs due to mom on subutex 61525 Problems Problem Notes Spinal,Breast, tubal,--decli channing 2 8 ; circ, unsure uoeeHiie-HmnctilurNwy-FkqrlKlqdufwkrdKN-?mirena01/27/08 IOL @ 40 wk w/ LLS Andreina Boyd 8 pound Twin IOL @ 37 wk w/ DRW Katie daniella Spears 6 pound 14/6 pound scheduled primary-C/S for antepartum diagnosis macrosomia @ 39 wks w/ KARYN Artis 10 pound 612/07/14: Saw [facility], NOrmal anatomy, S=D, normal AFV. They want f/u in 11 weeks to continue discussion on /KRA--formal report -stated Limited spine views. Stated 44% success rate per calculator primarily due to BMI. Offered availability of EYAD AC there if patient wanted to proceed[ x] 32 wks with [facility]--performed here. EFW 4 pound 14; 83% with 99% AC DEB 17. Breech, anterior placenta. Completes surveillance with lumbar sacral spine views. Incidental visualization of maternal gallstones. Advise repeat 36 weeks/lc[ x]- requested RCS scheduling 08/26 39wk; request second physician as events administrative assistant if available r/t obesity /llc[x] BPP - 8/8, deb - 26.14cm, polyhydramnios, very active3/17: EFW 3243gm 74%tile, AC 92%tile, DEB 21.56cm, vtx/KRA3/25: EFW 3591gm 82%tile, AC 97%tile, BPD 94.6%tile, DEB 30cm, BPP 8/8, vtx/KRA3/31: EFW 3932gm 91%tile, AC >99%tile, DEB 25cm, BPP 8/8, vtx/KRA[ x]2/wk NSTS starting 36-week per [facility] R/T morbid obesity[x] 36- week anesthesia consult R/T obesity/llc- sent 08/18= [ ] right upper quadrant ultrasound r/T cholelithiasis, and hepatology referral for hep C history Problem Name Start Date End Date Resolution Snomed Code Note Counseling for sterilization done 98170880626848 [ ] Sign juan rs 28 weeks-declined 06/11/21-unsure Past history of delivery of macrosomal infant 02/12/20 39801479741143 04/07/13 - prima ry c/s (10 lb 6 oz)-scheduled without labor trial. Not diagnosed as diabetic then Excessive caffeine intake 02/12/20 654132421927499 Drinking 8oz cof fee & 6 Mt. Dews/day- Past history of ectopic 575446482 10/09/20 PU L/question ectopic treated with methotrexate. Active immunization 59580102 [x] Flu-03/27/21 [x] COVID declined 02/25[x] tdap 07/01/21 Opioid dependence, on agonist therapy 1614851153399 suboxone w/ [facility]. weaning.On 12 mg/day at 02/25. 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 Rubella non-immune 357692799 [ ] Vaccine PP Chronic hepatitis C 535902918 Positive antibo dy screen, this is initial diagnosis at OB history, had not been picked up with prior testing at addiction clinics [x] Needs Quant/RNA and CMP-add at 16-week visitAST/ALT @ 17 wksk[x] CMP @ 28 wks-drawn 06/11Hep C Quant 79532, Genotype 2B[ ] Needs GI referral REC [facility] Maternal obesity complicating , childbirth and the puerperium, antepartum 01/31/20 744615162858 BMI >60A1c: 5.6 [x] early A1c 16 weeks-86[x] MFM consult 20 weeks for anatomy scan and to discuss prior and delivery options Cigarette smoker 38351446 1/2 PPD - urged to quit High risk 79936468 r/T drug abuse history, morbid obesity, early SAB x2 and 1 ectopic with last year. prior section, prior multiple gestation, prior macrosomia. Supervision of high risk with history of previous section done 38697551376831 primary c/s 2 013 SMO for macrosomia after having had 3 AGA vaginal deliveries including twins,[ ] Options RCS versus EYAD AC discussed 02/25Might consider EYAD AC at if not LGA. Discuss at [facility] visit07/01 -DECLINES [place], desires RCS here, rec 39 wk; [x]surg referral sent 07/01[-- ] Sign papers 28 weeks-declined @ 28 wks-unsure/DECLINES 07/01 History of substance abuse 573327712 [x] Discusse d + THC 1635-0101 heroin, methamphetamineSuboxone treatment x 2 years. lost custody first 4 children due to substance abuse.subutex 12 mg as of 02/25 Polyhydramnios 08/12/19 22 92497236 26.1 cm Maternal tobacco abuse 08/12/19 22 465480868 Cholelithiasis without obstruction 07/02/19 22 15793134 Large for gestation age fetus 07/02/19 22 928631603 Nasal congestion 06/11/19 22 68596572 Quan Calculation Initial Quan Date Initial Exam Date Initial Exam Provider Initial Ultrasound Date Last Menstrual Period Date Ultra Sound Weeks Gestation 09/02/2021 01/30/2021 01/23/2021 11/25/2020 8 Eighteen To Twenty Week Quan Update Ultra Sound Date Fundal Height At Umbil Quickening Date Ultra Sound Latest Weeks Gestation Final Quan Confirmed By Final Quan Confirmed Date Final Quan Date Ultra Sound Latest Days Gestation 0 01/30/2021 09/03/19 22 0 Pre- Flowsheet Flowsheet Date 02/11/2021 Cowart Score Blood Edema Fundus Height Fundus Units Glucose Ketones Leukocytes Nitrite Labor Signs Protein Cervic Dilation Cervic Effacement Cervic Station neg none negative none Negative neg Type Weight in lbs Pre/Post Dialysis Refused Weight 337.292802127136 BP Diastolic BP Location Tested BP Systolic BP Type 88 143 Fetus Heart Rate Present A 160 Fetus Movement Comments no vb, no lof, neg leuk, neg nits, no complaints states she still has nausea but it is getting better. Pt states her drug screen will still show THC in her system but she has quit smoking.//BW//Ade presents today for an OB HX. She states this was a planned . She has had 2 SABs in 2020. Urged to quit smoking cigs and THC and to decrease caffeine intake. Reviewed plan of care, she is not interested in genetic testing. No Q/C. F/U 1 2 weeks for OBPE. Flowsheet Date 02/25/2021 Cowart Score Blood Edema Fundus Height Fundus Units Glucose Ketones Leukocytes Nitrite Labor Signs Protein Cervic Dilation Cervic Effacement Cervic Station neg none none negative none Negative neg Type Weight in lbs Pre/Post Dialysis Refused Weight 345.524404369040 BP Diastolic BP Location Tested BP Systolic BP Type 80 132 Fetus Heart Rate Present A Present Fetus Movement Comments OBPE, doing well. some nause a but decrease if takes PNV at night. Denies any lof or vb. //AA. Questions regarding buprenorphine use. Versus attempted) discontinuation has recently decreased to 12 mg/day and feeling okay, close follow-up through her addiction clinic. Reviewed high risk of relapse if completely comes off MAT (this has happened before about 18 months ago), and higher risk to mother and baby if this happens. Reviewed with consistent MAT and no relapse, still may have VERONICA but overall better outcome than risks of relapse. She agrees to stay on at this point with close surveillance. No bleeding. Mild nausea. Reviewed risks with morbid obesity BMI 60. Advising [facility] consult for anatomy screening. Reviewed prior for LGA without GDM history, advised early 1 hour next visit. Discussed R/B RCS versus EYAD AC and can discuss this also at MFM consult, reviewed if desires EYAD AC that this would be encouraged at tertiary care rather than here. Would be a good candidate given 3 prior successful vaginal deliveries up to 8 pound 14, with increased surgical risk given obesity. Had been unaware of hep C diagnosis but not surprised . We will add CMP and quantitative hep C RNA.. If confirmed will advise hepatitis clinic referral to establish care. Unable to hear FHT due to obesity but able to see with ultrasound at completion of visit.. Continues to decline Covid, declines flu shot. Risks of both of these illness with and morbid obesity reviewed. Declines cell free DNA and CF and AFP screening. Discussed TL if has RCS or , signat 28 weeks. RTO 4 weeks with 1 hour PG; 20 weeks [facility] referral anatomy/obesity/prior C- section/delivery planning. If plans to deliver here with [facility] will request anesthesia consult 36- week R/T obesity/llc Flowsheet Date 03/27/2021 Cowart Score Blood Edema Fundus Height Fundus Units Glucose Ketones Leukocytes Nitrite Labor Signs Protein Cervic Dilation Cervic Effacement Cervic Station neg none 17 wks none negative trace Negative none neg Type Weight in lbs Pre/Post Dialysis Refused Weight 358.187048943283 BP Diastolic BP Location Tested BP Systolic BP Type 78 138 sitting Fetus Heart Rate Present A Present Fetus Movement A Yes Comments No vb, lof or unusual d/c. W ants to do Mat 21, and AFP. Also wants flu vaccine today. Early 1hr. Asking for refills for her anxiety med as she is out. mdr//Feeling flutters. Early 1 hr gtt due to BMI >60. Unable to keep down glucola. Will plan to reschedule. Taking Subutex 12 mg/Day. Trying to wean off meds. Discussed importance of her comfort is related to baby comfort. Discussed 96 hr stay after delivery for baby. She was tearful when she thought about her baby will go through withdrawl. Will obtain HeP C. RNA and Liver panel today. Encouraged ASA 81 mg QD. She has been taking Cymbalta. Her chart list dose as 20mg QD but more likely 30 QD. She will call with correct dose. She needs to reschedule 1 hr gtt and she is already scheduled with for anatomy scan on 04/24/21 RH Flowsheet Date 04/02/2021 Cowart Score Blood Edema Fundus Height Fundus Units Glucose Ketones Leukocytes Nitrite Labor Signs Protein Cervic Dilation Cervic Effacement Cervic Station neg none none negative none Negative neg Type Weight in lbs Pre/Post Dialysis Refused With clothes 365.756962139206 BP Diastolic BP Location Tested BP Systolic BP Type 74 128 sitting Fetus Heart Rate Present A Present Fetus Movement A Yes Comments 1 hr gtt/cbc, afm, neg leuks , neg nits, no lof, no vb.JRMHere for early 1hr; denies q/c; wants to know Mat21 results-labs drawn on 03/27 not back yet; difficulty with FHTs-audible FM and pt reports very active fetus; has appt with [facility] for [facility]; no further q/c; dgt Flowsheet Date 04/24/2021 Cowart Score Blood Edema Fundus Height Fundus Units Glucose Ketones Leukocytes Nitrite Labor Signs Protein Cervic Dilation Cervic Effacement Cervic Station neg none negative none Negative neg Type Weight in lbs Pre/Post Dialysis Refused Weight 360.688385793376 BP Diastolic BP Location Tested BP Systolic BP Type 86 124 Fetus Heart Rate Present A Present Fetus Movement A Yes Comments No vb, no lof, neg leuk,neg nits, c/o urinary frequency and stress incontinence.//BW///Discussed Kegel exercises. She denied COVID symptoms to front staff, but upon my entry states she is coughing and worried about COVID. Encouraged her to pull mask over nose and advised her going to car for test. Test negative. Discussed importance of disclosing symptoms when she arrives at our office. Saw [facility] today. She is strongly considering . Return in 4 wk for routine visit, and then 11 weeks to f/u with [facility] per their request. KRA Flowsheet Date 05/26/2021 Cowart Score Blood Edema Fundus Height Fundus Units Glucose Ketones Leukocytes Nitrite Labor Signs Protein Cervic Dilation Cervic Effacement Cervic Station neg none 25 wks none negative none Negative none trace Type Weight in lbs Pre/Post Dialysis Refused Weight 362.635274200263 BP Diastolic BP Location Tested BP Systolic BP Type 72 128 sitting Fetus Heart Rate Present A Present Fetus Movement A Yes Comments No vb, lof or unusual d/c. S till having problems with vomiting, and heartburn. Has tried tums for heartburn and it doesnt help. Not really having nausea, just will vomit. mdr//Baby active. She is having some acid reflux. Tums are not helping. Rx sent Famotidine. Subutex 16 mg QD. She is unsure about TL with C/S- May choose IUD. RTC 2 wks with 1 hr gtt. RH Flowsheet Date 06/11/2021 Cowart Score Blood Edema Fundus Height Fundus Units Glucose Ketones Leukocytes Nitrite Labor Signs Protein Cervic Dilation Cervic Effacement Cervic Station neg none 30 cm none negative none Negative none trace Type Weight in lbs Pre/Post Dialysis Refused With clothes 354.351686303792 BP Diastolic BP Location Tested BP Systolic BP Type 84 124 sitting Fetus Heart Rate Present A 138 Fetus Movement A Yes Comments afm, 1 hr gtt/cbc, c/o dizzi ness, weakness the last 4 days, ear pain, increased fluids has not helped, neg leuks, neg nits, no lof, no vb.JRMHere for 1hr; fetus active; disc s/s dizziness; feels she has a cold or sinus infection; s/s drainage, slight cough; denies fever and aches; rapid Covid test neg; left TM bulging; rx flonase and loratadine sent; disc fluids/vit C; CMP drawn d/t h/o Hep C; no further q/c; rto 2 wks for routine OV w/tdap/dgt Flowsheet Date 07/01/2021 Cowart Score Blood Edema Fundus Height Fundus Units Glucose Ketones Leukocytes Nitrite Labor Signs Protein Cervic Dilation Cervic Effacement Cervic Station neg none 45 cm none negative none Negative none neg Type Weight in lbs Pre/Post Dialysis Refused Weight 353.188869132131 BP Diastolic BP Location Tested BP Systolic BP Type 72 124 Fetus Heart Rate Present A Present Fetus Movement A Yes Comments US today. Baby active. still some nausea/vomiting. TDAP today //AA overall doing well. Reviewed ultrasound with findings as above. Reviewed accelerated growth although unlikely to reach the previous 10 pound EFW. Advise 36-week follow-up. She has thought through her options and has decided to proceed with scheduled C- section rather than EYAD AC, primary factor being inconvenience of driving to tertiary hospital. Discussed availability of [facility] rather than as closer to her home in [place] but declines. Reviewed risks of delivery no matter what plan she follows being significantly higher for her with morbid obesity particularly if an emergent would be needed if she agrees she wants to avoid this. We will set here for 39 weeks~4/5-referral to [facility] ,. Will request second physician for assistance given likely to be technically challenging with obesity. Sure she does NOT want tubal now although not sure if they will actually try again, unsure re: contraception but recommend L ARC. Currently back up to 16 mg Subutex under care of Jv and feels like she is not having any additional cravings, gets drug screen there each visit. Discussed postoperative analgesia concerns with , will try to optimize nonnarcotic and plan Duramorph supplementation of spinal. States with last try to get by on just ibuprofen but she was not on Subutex did not and she did relapse into use following surgery. 2 wk fu/llc Flowsheet Date 07/22/2021 Cowart Score Blood Edema Fundus Height Fundus Units Glucose Ketones Leukocytes Nitrite Labor Signs Protein Cervic Dilation Cervic Effacement Cervic Station neg none 34 wks none negative none Negative trace Type Weight in lbs Pre/Post Dialysis Refused With clothes 367.497620191730 BP Diastolic BP Location Tested BP Systolic BP Type 82 122 sitting Fetus Heart Rate Present A Present Fetus Movement A Yes Comments afm, c/o leyla holt, neg leuks, neg nits, no lof, no vb.JRM//Baby active. Weight gain of 14# but unsure if scale are accurate at 367. Normotensive today. She feels that she is having some edema but difficult to palpate. She had been drinking 4 Bottles of Mt. Dew per day and 2 bottles of water. She plans to increase water decrease Mt. Dew. Plan to return on Wednesday for wt and BP check. She will also ened f/U @ 36 wks with US and NST due to Inc BMI with GBS then. RH Flowsheet Date 08/07/2021 Cowart Score Blood Edema Fundus Height Fundus Units Glucose Ketones Leukocytes Nitrite Labor Signs Protein Cervic Dilation Cervic Effacement Cervic Station neg none negative none Negative neg Type Weight in lbs Pre/Post Dialysis Refused With clothes 367.62731766848 BP Diastolic BP Location Tested BP Systolic BP Type 82 128 Fetus Heart Rate Present A Present Fetus Movement A Yes Comments neg leuk, neg nits, no compl aints voiced to me.//BW///NST nonreactive, BPP 8/8. EFW AGA, DEB normal. No VB, LOF, cramping. Good FM. Return on Wednesday. KRA Flowsheet Date 08/11/2021 Cowart Score Blood Edema Fundus Height Fundus Units Glucose Ketones Leukocytes Nitrite Labor Signs Protein Cervic Dilation Cervic Effacement Cervic Station neg none 40 none negative none Negative none neg Type Weight in lbs Pre/Post Dialysis Refused With clothes 367.50249694922 BP Diastolic BP Location Tested BP Systolic BP Type 74 128 sitting Fetus Heart Rate Present A Present Fetus Movement A Yes Comments afm, nst, no lof, no vb-ct// Ade presents today @ 36.6 wks for an OB visit with NST. Baby very active and NST was reassuring but difficult to obtain. BPP obtained and 12/29. Polyhydramnios noted on US with an DEB of 26.1 cm. Reviewed NST and US. Plan to f/u 3 days for NST/US for growth and visit as scheduled. Flowsheet Date 08/15/2021 Cowart Score Blood Edema Fundus Height Fundus Units Glucose Ketones Leukocytes Nitrite Labor Signs Protein Cervic Dilation Cervic Effacement Cervic Station Type Weight in lbs Pre/Post Dialysis Refused Weight 366.455528598286 BP Diastolic BP Location Tested BP Systolic BP Type 88 128 Fetus Heart Rate Present A Present Fetus Movement A Yes Comments Pt c /o having contractions but nothing regular. NST and visit today.//BW. Urine not recorded. Declines cervical exam. Sees Anesthesia Wednesday. NST reassuring but difficult to obtain. BPP 12/29. US with EFW 82%tile with accelerated AC. Poly noted at 30cm. Return Wednesday for pre-op visit with TONI, anesthesia consultation. PAZ Flowsheet Date 08/18/2021 Cowart Score Blood Edema Fundus Height Fundus Units Glucose Ketones Leukocytes Nitrite Labor Signs Protein Cervic Dilation Cervic Effacement Cervic Station none 40 cm none Type Weight in lbs Pre/Post Dialysis Refused Weight 366.851539252305 BP Diastolic BP Location Tested BP Systolic BP Type 72 124 Fetus Heart Rate Present A Present Fetus Movement A Yes Comments NST, Preop evaluation today. Scheduled for anestheia consult today as well. Doing well baby active. denies any lof or vb. //AA. Urine not recorded. NST reassuring variability but t single 15 x 15 Accel. Follow-up BPP 12/29, DEB 23. Vertex. No labor symptoms. Normal cardiac/respiratory exam for preop. Reviewed perioperative testing to complete soon including preop anesthesia consult given morbid obesity. States she still wishes she could have had a vaginal delivery trial here but willing to have scheduled understanding significant risk if she needed an emergency in labor. Advise discontinue cigarettes now leading up to surgery. Discussed postoperative trying to limit systemic narcotic exposure. No tubal, probably Nexplanon. She feels baby is smaller than her 10 pound baby but she herself is 90 pounds larger. Continue twice weekly visits until 4 7 surgery/llpatient agreeable to GI referral for hep C although she was not aware of cholelithiasis--incidental finding on her 07-01-21 ultrasound here Flowsheet Date 08/21/2021 Cowart Score Blood Edema Fundus Height Fundus Units Glucose Ketones Leukocytes Nitrite Labor Signs Protein Cervic Dilation Cervic Effacement Cervic Station neg none none negative none Negative neg Type Weight in lbs Pre/Post Dialysis Refused With clothes 353.858406395153 BP Diastolic BP Location Tested BP Systolic BP Type 78 124 sitting Fetus Heart Rate Present Fetus Movement A Yes Comments No vb, lof or unusual d/c. N ST/visit today. mdr///NST NR. BPP 12/29. Growth/DEB was ordered (had one 1 week ago). EFW 3932gm, 91%tile, AC >99%tile, DEB 25cm. No labor symptoms. F/u Wednesday and then delivery next week! Flowsheet Date 08/25/2021 Cowart Score Blood Edema Fundus Height Fundus Units Glucose Ketones Leukocytes Nitrite Labor Signs Protein Cervic Dilation Cervic Effacement Cervic Station none 38 wks Type Weight in lbs Pre/Post Dialysis Refused Weight 357.51337683307 BP Diastolic BP Location Tested BP Systolic BP Type 78 118 sitting Fetus Heart Rate Present A Present Fetus Movement A Yes Comments Baby active. NST equivocal w ith BPP 12/29.//Baby active. NST equivocal, BPP reassuring 12/29. DEB 32. She is scheduled for her C/S on . She declined to have TL with her C/S-May get Mirena IUD. Menstrual History Last Menstrual Date Menses Monthly On Bcp Conception Prior Menses Frequency Hcg Plus Date Menarche Onset Age 0711/25/2020 false Genetic Screening And Infection History Question Response Note Patient's Age Will Be 35 Yea rs Or Older At Estimated Date of Delivery false Thalassemia (Albanian, Lao, Mediterranean, Or Background): MCV < 80 false Neural Tube Defect (Meningom yelocele, Spina Bifida, Or Anencephaly) false Congenital Heart Defect false Down Syndrome false Dewey-Sachs (eg, Mu-Ism, Cajun , Welsh-Citizen Of [place]) false Pearl Disease false Sickle Cell Disease Or Trait () false Hemophilia Or Other Blood Disorders false Muscular Dystrophy false Cystic Fibrosis false [place]'s Chorea false Mental Retardation/Autism false If Yes, Was Person Tested Fo r Fragile X? false Other Inherited Genetic Or C hromosomal Disorder false Maternal Metabolic Disorder (eg, Type 1 Diabetes, PKU) false Patient Or Baby's Father Had A Child With Defects Not Listed Above false Recurrent Loss, Or A Stillbirth true Medications (including Suppl ements, Vitamins, Herbs, OTC Drugs), Illicit/Recreational Drugs, Alcohol false THC, vitafusion mu lti vits, If Yes, Agent(s) And Strength/Dosage false Any Other Genetic History false Live With Someone With TB Or Exposed To TB false Patient Or Partner Has Histo ry Of Genital Herpes false Rash Or Viral Illness Since Last Menstrual Period false History Of STD, Gonorrhea, C hlamydia, HPV, Syphilis true Mother-Chlamydia 8-9 years a go Other Infection History false History of HIV false History of Hepatitis false Prior GBS-infected child false Recent Travel Outside of Country false Plans and Education First Trimester Discussed Date Discussion Item Discussion Note Discuss ed By 02/11/2021 Desire for planned [email or web address] 02/11/2021 Alcohol no [email or web address] 02/11/2021 Illicit/recreational drugs THC - stopped recently [email or web address] 02/11/2021 Nutrition [email or web address] 02/11/2021 Weight gain counseling bwadd [email or web address] 02/11/2021 Intimate Partner Violence no bw [email or web address] 02/11/2021 Unstable Housing no [email or web address] 02/11/2021 Use of any medicatio ns (including supplements, vitamins, herbs, or OTC drugs) PNV [email or web address] 02/11/2021 Avoidance of saunas or hot tubs [email or web address] 02/11/2021 Indications for ultrasonography [email or web address] 02/11/2021 Comminucation Barriers no bwadd [email or web address] 02/11/2021 Anticipated course o f care [email or web address] 02/11/2021 Toxoplasmosis precau tions (cats/raw meat) 1 house cat [email or web address] 02/11/2021 Sexual activity addell02/11/2021 Exercise ell02/11/2021 Tobacco/smoking cess ation counseling (ask, advise, assess, assist, and arrange) yes - smoking 1/2 PPD 02/11/2021 Barriers to Care no addell02/11/2021 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 Depression/Anxiety ( should be performed at least once during period) yes - taking duloxetine 02/11/2021 WIC/Hands Referral [facility]02/11/2021 Nutrition counseling ; special diet; dietary precautions (mercury, listeriosis) 02/11/2021 Dental Care / Refer to Dentist 02/11/2021 Seat belt use [facility]02/11/2021 Childbirth classes/h ospital facilities [facility]02/11/2021 breast 02/11/2021 Screening for aneuploidy bwa [email or web address] Second Trimester Discussed Date Discussion Item Discussion Note Discuss ed By Third Trimester Discussed Date Discussion Item Discussion Note Discuss ed By Pain Management Plans Spinal Circumcision Preference Yes Delivery Information Delivery Date Delivery Type Labor Anesthesia Weeks Gestation Incision Type Labor Labor Length Hrs Delivered By Post Complications Tubal Sterilization Discharge Date Comments 2 None Regional-Sp inal 39.2 Low Transvers e Heydi Parker MD None 09/01/2021 Repeat c/s, polyhydra mnios, LST inc per [facility] Discharge Information Feeding Method Contraceptive Method Maternal HG B and HCT Levels Breast BCP 10.6 Ob Episode Information Episode Created Date Number of Fetuses Patient Bloodtype Patient rh Status Prepregnancy Weight lbs Domestic Partner Domestic Partner Phone Father Name Entertainment Dancer Status 10/01/19 21 1 CLOSED Fetus Data First Name Last Name Admitted to NICU Weight (g) Sex Living Outcome Pediatric Complications Fetus ID Race Codes Race Delivery Type [id number] Quan Calculation Initial Quan Date Initial Exam Date Initial Exam Provider Initial Ultrasound Date Last Menstrual Period Date Ultra Sound Weeks Gestation 0 Eighteen To Twenty Week Quan Update Ultra Sound Date Fundal Height At Umbil Quickening Date Ultra Sound Latest Weeks Gestation Final Quan Confirmed By Final Quan Confirmed Date Final Quan Date Ultra Sound Latest Days Gestation 0 0 Menstrual History Last Menstrual Date Menses Monthly On Bcp Conception Prior Menses Frequency Hcg Plus Date Menarche Onset Age Delivery Information Delivery Date Delivery Type Labor Anesthesia Weeks Gestation Incision Type Labor Labor Length Hrs Delivered By Post Complications Tubal Sterilization Discharge Date Comments 1 per patient Discharge Information Feeding Method Contraceptive Method Maternal HG B and HCT Levels Ob Episode Information Episode Created Date Number of Fetuses Patient Bloodtype Patient rh Status Prepregnancy Weight lbs Domestic Partner Domestic Partner Phone Father Name Entertainment Dancer Status 10/01/19 21 1 CLOSED Fetus Data First Name Last Name Admitted to NICU Weight (g) Sex Living Outcome Pediatric Complications Fetus ID Race Codes Race Delivery Type [id number] Quan Calculation Initial Quan Date Initial Exam Date Initial Exam Provider Initial Ultrasound Date Last Menstrual Period Date Ultra Sound Weeks Gestation 0 Eighteen To Twenty Week Quan Update Ultra Sound Date Fundal Height At Umbil Quickening Date Ultra Sound Latest Weeks Gestation Final Quan Confirmed By Final Quan Confirmed Date Final Quan Date Ultra Sound Latest Days Gestation 0 0 Menstrual History Last Menstrual Date Menses Monthly On Bcp Conception Prior Menses Frequency Hcg Plus Date Menarche Onset Age Delivery Information Delivery Date Delivery Type Labor Anesthesia Weeks Gestation Incision Type Labor Labor Length Hrs Delivered By Post Complications Tubal Sterilization Discharge Date Comments 1 chemical per pt, [facility] Discharge Information Feeding Method Contraceptive Method Maternal HG B and HCT Levels Ob Episode Information Episode Created Date Number of Fetuses Patient Bloodtype Patient rh Status Prepregnancy Weight lbs Domestic Partner Domestic Partner Phone Father Name Entertainment Dancer Status 07/31/19 17 1 CLOSED Fetus Data First Name Last Name Admitted to NICU Weight (g) Sex Living Outcome Pediatric Complications Fetus ID Race Codes Race Delivery Type 4706.01 7 M Full Term 4133 Quan Calculation Initial Quan Date Initial Exam Date Initial Exam Provider Initial Ultrasound Date Last Menstrual Period Date Ultra Sound Weeks Gestation 0 Eighteen To Twenty Week Quan Update Ultra Sound Date Fundal Height At Umbil Quickening Date Ultra Sound Latest Weeks Gestation Final Quan Confirmed By Final Quan Confirmed Date Final Quan Date Ultra Sound Latest Days Gestation 0 0 Menstrual History Last Menstrual Date Menses Monthly On Bcp Conception Prior Menses Frequency Hcg Plus Date Menarche Onset Age Delivery Information Delivery Date Delivery Type Labor Anesthesia Weeks Gestation Incision Type Labor Labor Length Hrs Delivered By Post Complications Tubal Sterilization Discharge Date Comments 3 Regional-Sp inal 39 false Primary section for Macrosomi a, per SMO Discharge Information Feeding Method Contraceptive Method Maternal HG B and HCT Levels Ob Episode Information Episode Created Date Number of Fetuses Patient Bloodtype Patient rh Status Prepregnancy Weight lbs Domestic Partner Domestic Partner Phone Father Name Entertainment Dancer Status 07/31/19 17 1 CLOSED Fetus Data First Name Last Name Admitted to NICU Weight (g) Sex Living Outcome Pediatric Complications Fetus ID Race Codes Race Delivery Type 3118.44 5 F Full Term 4131 Vaginal Quan Calculation Initial Quan Date Initial Exam Date Initial Exam Provider Initial Ultrasound Date Last Menstrual Period Date Ultra Sound Weeks Gestation 0 Eighteen To Twenty Week Quan Update Ultra Sound Date Fundal Height At Umbil Quickening Date Ultra Sound Latest Weeks Gestation Final Quan Confirmed By Final Quan Confirmed Date Final Quan Date Ultra Sound Latest Days Gestation 0 0 Menstrual History Last Menstrual Date Menses Monthly On Bcp Conception Prior Menses Frequency Hcg Plus Date Menarche Onset Age Delivery Information Delivery Date Delivery Type Labor Anesthesia Weeks Gestation Incision Type Labor Labor Length Hrs Delivered By Post Complications Tubal Sterilization Discharge Date Comments 0 Regional-Ep idural 37 false 5 Twin Induction Albertina Spears Discharge Information Feeding Method Contraceptive Method Maternal HG B and HCT Levels Ob Episode Information Episode Created Date Number of Fetuses Patient Bloodtype Patient rh Status Prepregnancy Weight lbs Domestic Partner Domestic Partner Phone Father Name Entertainment Dancer Status 07/31/19 17 1 CLOSED Fetus Data First Name Last Name Admitted to NICU Weight (g) Sex Living Outcome Pediatric Complications Fetus ID Race Codes Race Delivery Type 3061.74 6 F Full Term 4132 Vaginal Quan Calculation Initial Quan Date Initial Exam Date Initial Exam Provider Initial Ultrasound Date Last Menstrual Period Date Ultra Sound Weeks Gestation 0 Eighteen To Twenty Week Quan Update Ultra Sound Date Fundal Height At Umbil Quickening Date Ultra Sound Latest Weeks Gestation Final Quan Confirmed By Final Quan Confirmed Date Final Quan Date Ultra Sound Latest Days Gestation 0 0 Menstrual History Last Menstrual Date Menses Monthly On Bcp Conception Prior Menses Frequency Hcg Plus Date Menarche Onset Age Delivery Information Delivery Date Delivery Type Labor Anesthesia Weeks Gestation Incision Type Labor Labor Length Hrs Delivered By Post Complications Tubal Sterilization Discharge Date Comments 0 Regional-Ep idural 37 false [address] Wilson Discharge Information Feeding Method Contraceptive Method Maternal HG B and HCT Levels Ob Episode Information Episode Created Date Number of Fetuses Patient Bloodtype Patient rh Status Prepregnancy Weight lbs Domestic Partner Domestic Partner Phone Father Name Entertainment Dancer Status 07/31/19 17 1 CLOSED Fetus Data First Name Last Name Admitted to NICU Weight (g) Sex Living Outcome Pediatric Complications Fetus ID Race Codes Race Delivery Type 4025.62 9 F Full Term 4130 Vaginal Quan Calculation Initial Quan Date Initial Exam Date Initial Exam Provider Initial Ultrasound Date Last Menstrual Period Date Ultra Sound Weeks Gestation 0 Eighteen To Twenty Week Quan Update Ultra Sound Date Fundal Height At Umbil Quickening Date Ultra Sound Latest Weeks Gestation Final Quan Confirmed By Final Quan Confirmed Date Final Quan Date Ultra Sound Latest Days Gestation 0 0 Menstrual History Last Menstrual Date Menses Monthly On Bcp Conception Prior Menses Frequency Hcg Plus Date Menarche Onset Age Delivery Information Delivery Date Delivery Type Labor Anesthesia Weeks Gestation Incision Type Labor Labor Length Hrs Delivered By Post Complications Tubal Sterilization Discharge Date Comments 8 Regional-Ep idural 41 false 6 NAEEM Champion, LLS Induction Discharge Information Feeding Method Contraceptive Method Maternal HG B and HCT Levels
== END 2025-03-27 23:59 | disposition home or self-care (01) ==
LOC: LAB.DROPOF 03-29 13:37
PROVIDERS: PCP Nurse Practitioner; Visit Provider Nurse Practitioner
DX: Z34.90 Encounter for supervision of normal pregnancy, unspecified, unspecified trimester (principal); E66.9 Obesity, unspecified; F32.A Depression, unspecified; F41.9 Anxiety disorder, unspecified; F19.11 Other psychoactive substance abuse, in remission
CPT/HCPCS: 80053; 82607; 82746; 83036; 84443; 84702; 85025